=== PATIENT | male | born 1960 | race Caucasian/White ===

== ENCOUNTER 2019-06-30 12:05 | Inpatient (IN) | payer BC ==
--- NOTE | 2019-06-30 12:29 | ER Document Report ---
ED Medical Screen (RME) - General Chief Complaint: Foot Pain Stated Complaint: LEFT FOOT PAIN Time Seen by Provider: 06/30/19 12:15 Mode of Arrival: Ambulatory Information source: Patient Notes: This 58-year-old male with history of diabetes A. fib CHF and psoriasis presents to the emergency department with complaints of abscess to the bottom of his left foot. He reports 5 to 6 weeks ago he had a sore on the bottom of his foot it seemed to get better it was almost cleared up. Approximately 1 week ago he had a pedicure done and Saturday his foot started swelling sore got bigger. His le ft foot is now swollen ulcer is draining foul odor. Patient reports he started having chills shaking to the point that his stomach was hurting on Saturday. He reports he has had 3 episodes of dry heaving vomited one time. Patient reports he got his flu shot last week and was thinking maybe that is why he was shaking. He is visiting from [place]. Came to see his grandson. Reports he has not been checking his blood glucose because he forgot his glucometer in [place]. Patient ate waffles this morning. He also reports he did not take any of his medications today. Patient is pale and shaky. I have greeted and performed a rapid initial assessment of this patient. A comprehensive ED assessment and evaluation of the patient, analysis of test results and completion of the medical decision making process will be conducted by additional ED providers. Dictation of this chart was performed using voice recognition software; therefore, there may be some unintended grammatical errors. Physical Exam - Vital signs Vitals: Temp Pulse Resp BP Pulse Ox 98.5 F 72 20 114/58 L 98 06/30/19 12:10 06/30/19 12:10 06/30/19 12:10 06/30/19 12:10 06/30/19 12:10 Course - Vital Signs Vital signs: Temp Pulse Resp BP Pulse Ox 98.5 F 72 20 114/58 L 98 06/30/19 12:10 06/30/19 12:10 06/30/19 12:10 06/30/19 12:10 06/30/19 12:10
[2019-06-30 13:08] LABS: VENOUS BLOOD BASE EXCESS 1.7 mmol/L; VENOUS BLOOD HCO3 26.8 mmol/L (20-32); VENOUS BLOOD PCO2 45.3 mmHg (35-63); VENOUS BLOOD PH 7.39 (7.30-7.42)
[2019-06-30] MEDS ORDERED: NORMAL SALINE 1000 ML 1,000 ML IV ONE ×3 (13:27→14:38)
[2019-06-30] MEDS ORDERED: VANCOMYCIN HCL INJ 1000 MG VIAL IV ONE (13:27)
--- NOTE | 2019-06-30 13:29 | RADIOLOGY REPORT (SQ) ---
EXAM DESCRIPTION: FOOT LEFT COMPLETE COMPLETED DATE/TIME: 06/30/2019 1:07 pm REASON FOR STUDY: abscess diabetic swelling pain COMPARISON: None. NUMBER OF VIEWS: Three views. TECHNIQUE: AP, lateral and oblique radiographic images acquired of the left foot. LIMITATIONS: None. FINDINGS: MINERALIZATION: Osteopenia. BONES: No acute fracture or dislocation. No erosions. JOINTS: 1st MTP osteoarthrosis; there is no widening of the joint space. SOFT TISSUES: Soft tissue swelling and subcutaneous emphysema in between the 1st and 2nd toes. OTHER: The tarsometatarsal alignment is preserved. There are enthesophytes at the calcaneal insertio n of the Achilles tendon and plantar fascia. The Achilles tendon silhouette is thickened and measure s up to 14 mm in AP diameter. There are vascular calcifications. IMPRESSION: 1. Soft tissue swelling and subcutaneous emphysema centered around the 1st and 2nd toes . There is no osseous erosion or widening of the 1st MTP joint space to suggest an acute osteomyelit is. If clinical concern persists correlation with MRI is recommended. 2. Nonspecific thickening of the Achilles tendon silhouette - correlate with clinical findings to e xclude at tendinosis/tear, gouty infiltration, rheumatoid arthritis or retrocalcaneal bursitis. TECHNICAL DOCUMENTATION: JOB ID: [id number] [employer]- All Rights Reserved Reading location - IP/workstation name: [email or web address]
[2019-06-30] MEDS ORDERED: INSULIN REG, HUMAN 100 UNIT/ML 3 ML VIAL (PYX) IV ONE (13:30)
[2019-06-30] MEDS ORDERED: CEFEPIME 2 GM/D5W RTU 2 GM/50 ML RTUPB IV SCH (13:30)
[2019-06-30 13:33] LABS: HEMATOCRIT 34.2 % (37.9-51.0); HEMOGLOBIN 11.3 g/dL (13.5-17.0); MEAN CORPUSCULAR HEMOGLOBIN 28.2 pg (27.0-33.4); MEAN CORPUSCULAR HGB CONC 32.9 g/dL (32.0-36.0); MEAN CORPUSCULAR VOLUME 86 fl (80-97); PLATELET COUNT 236 10^3/uL (150-450); RED BLOOD COUNT 3.99 10^6/uL (4.35-5.55); RED CELL DISTRIBUTION WIDTH 16.5 % (11.5-14.0); WHITE BLOOD COUNT 12.8 10^3/uL (4.0-10.5)
[2019-06-30 13:51] LABS: ALBUMIN 3.8 g/dL (3.5-5.0); ALKALINE PHOSPHATASE 50 U/L (38-126); ANION GAP 15 (5-19); ASPARTATE AMINO TRANSFERASE 37 U/L (17-59); BILIRUBIN,DIRECT 0.8 mg/dL (0.0-0.4); BILIRUBIN,TOTAL 1.5 mg/dL (0.2-1.3); BLOOD UREA NITROGEN 43 mg/dL (7-20); CALCIUM 8.7 mg/dL (8.4-10.2); CARBON DIOXIDE 24 mmol/L (22-30); CHLORIDE 92 mmol/L (98-107); POTASSIUM 4.5 mmol/L (3.6-5.0); TOTAL PROTEIN 7.5 g/dL (6.3-8.2)
[2019-06-30 14:00] LABS: GLUCOSE 443 mg/dL (75-110)
[2019-06-30 14:06] LABS: ABSOLUTE LYMPHOCYTES# (MANUAL) 0.6 10^3/uL (0.5-4.7); ABSOLUTE MONOCYTES # (MANUAL) 0.8 10^3/uL (0.1-1.4); ANISOCYTOSIS 1+; BAND NEUTROPHILS % (MANUAL) 1 % (3-5); BASOPHILS % (MANUAL) 0 % (0-2); EOSINOPHILS % (MANUAL) 0 % (0-6); LYMPHOCYTES % (MANUAL) 5 % (13-45); MONOCYTES % (MANUAL) 6 % (3-13); PLATELET COMMENT ADEQUATE; SEGMENTED NEUTROPHILS % (MAN) 88 % (42-78); TOTAL CELLS COUNTED 100
[2019-06-30 14:08] LABS: OVALOCYTES SLIGHT; POLYCHROMASIA SLIGHT
--- NOTE | 2019-06-30 14:45 | ER Document Report ---
ED Extremity Problem, Lower - General Chief Complaint: Wound Infection Stated Complaint: LEFT FOOT PAIN Time Seen by Provider: 06/30/19 12:15 Mode of Arrival: Ambulatory Information source: Patient TRAVEL OUTSIDE OF THE [place] IN LAST 30 DAYS: No - HPI Notes: Patient comes in complaining of left foot pain. Patient states he is diabetic. He states he gets frequent ingrown toenails. He states that he had an ingrown toenail procedure approximately 4 days ago. Since then his foot has become swollen red and tender. He denies any other symptoms. The pain is constant. It is mild to moderate. It radiates up to the foot. It is worse with movement and better with rest. No vomiting or diarrhea. - Related Data Allergies/Adverse Reactions: olmesartan [From Benicar] Allergy (Verified 06/30/19 13:33) ondansetron [From Zofran] Allergy (Verified 06/30/19 13:33) spider venom Allergy (Verified 06/30/19 13:33) Past Medical History - General Information source: Patient - Social History Smoking Status: Never Smoker Frequency of alcohol use: None Drug Abuse: None Family History: Reviewed & Not Pertinent Patient has suicidal ideation: No Patient has homicidal ideation: No - Past Medical History Cardiac Medical History: Reports: Hx Atrial Fibrillation, Hx Congestive Heart Failure Endocrine Medical History: Reports: Hx Diabetes Mellitus Type 2 GI Medical History: Reports: Hx Gastroesophageal Reflux Disease Past Surgical History: Reports: Hx Abdominal Surgery - hernia, Hx Appendectomy, Hx Orthopedic Surgery - left knee Review of Systems - Review of Systems Constitutional: Malaise, Weakness. denies: Chills, Fever Cardiovascular: denies: Chest pain, Palpitations Respiratory: denies: Cough, Short of breath Gastrointestinal: denies: Abdominal pain, Diarrhea, Vomiting -: Yes All other systems reviewed and negative Physical Exam - Vital signs Vitals: Temp Pulse Resp BP Pulse Ox 98.5 F 72 20 114/58 L 98 06/30/19 12:10 06/30/19 12:10 06/30/19 12:10 06/30/19 12:10 06/30/19 12:10 Interpretation: Normal - General General appearance: Appears well, Alert - HEENT Head: Normocephalic, Atraumatic Eyes: Normal Pupils: PERRL - Respiratory Respiratory status: No respiratory distress Chest status: Nontender Breath sounds: Normal Chest palpation: Normal - Cardiovascular Rhythm: Regular Heart sounds: Normal auscultation Murmur: No - Abdominal Inspection: Normal Distension: No distension Bowel sounds: Normal Tenderness: Nontender Organomegaly: No organomegaly - Back Back: Normal, Nontender - Extremities General upper extremity: Normal inspection, Nontender, Normal color, Normal ROM, Normal temperature General lower extremity: Tender - Left foot has tenderness swelling and erythema about the great toe. This is both anterior and posterior. It does have some fluctuance to it. It is consistent with a diabetic foot abscess., Edema. No: Normal color, Normal weight bearing, Mahogany's sign - Neurological Neuro grossly intact: Yes Cognition: Normal Orientation: AAOx4 [place] Coma Scale Eye Opening: Spontaneous [place] Coma Scale Verbal: Oriented [place] Coma Scale Motor: Obeys Commands [place] Coma Scale Total: 15 Speech: Normal Motor strength normal: LUE, RUE, LLE, RLE Sensory: Normal - Psychological Associated symptoms: Normal affect, Normal mood - Skin Skin Temperature: Warm Skin Moisture: Dry Skin Color: Normal, Other - Except as mentioned above under extremities Course - Re-evaluation Re-evalutation: 06/30/19 14:42 Patient presents with obvious diabetic foot ulcer. X-ray shows no gas in the tissue or evidence of osteo-. I have treated him as a septic patient since he has an elevated white blood cell count and a positive lactate. He will receive 30 mL/kg of fluids as well as antibiotics. At this time his vitals are stable. He has been accepted for admission. Patient is in agreement with the plan. - Vital Signs Vital signs: Temp Pulse Resp BP Pulse Ox 100.1 F 72 12 148/68 H 98 06/30/19 14:01 06/30/19 12:10 06/30/19 14:01 06/30/19 14:01 06/30/19 14:01 - Laboratory Result Diagrams: 06/30/19 13:09 06/30/19 13:09 Laboratory results interpreted by me: 06/30/19 06/30/19 06/30/19 12:27 13:09 13:09 WBC 12.8 H RBC 3.99 L Hgb 11.3 L Hct 34.2 L RDW 16.5 H Seg Neuts % (Manual) 88 H Band Neutrophils % 1 L Lymphocytes % (Manual) 5 L Abs Neuts (Manual) 11.4 H Sodium 131.1 L Chloride 92 L BUN 43 H Creatinine 2.34 H Est GFR ( Amer) 35 L Est GFR (MDRD) Non-Af 29 L Glucose 443 H* POC Glucose 432 H* Lactic Acid Total Bilirubin 1.5 H Direct Bilirubin 0.8 H 06/30/19 13:09 WBC RBC Hgb Hct RDW Seg Neuts % (Manual) Band Neutrophils % Lymphocytes % (Manual) Abs Neuts (Manual) Sodium Chloride BUN Creatinine Est GFR ( Amer) Est GFR (MDRD) Non-Af Glucose POC Glucose Lactic Acid 3.9 H Total Bilirubin Direct Bilirubin - Diagnostic Test Radiology reviewed: Image reviewed, Reports reviewed Critical Care Note - Critical Care Note Total time excluding time spent on procedures (mins): 50 Comments: Approximately 50 minutes of critical care time were spent on this patient. This included multiple reassessments. Included reviewing his images and labs. It included discussing with consultants. It included reviewing old records. Discharge - Discharge Clinical Impression: Diabetic foot infection Sepsis Qualifiers: Sepsis type: sepsis due to unspecified organism Sepsis acute organ dysfunction status: with acute organ dysfunction Severe sepsis acute organ dysfunction type: acute renal failure Acute renal failure type: unspecified Severe sepsis shock status: without septic shock Qualified Code(s): A41.9 - Sepsis, unspecified organism; R65.20 - Severe sepsis without septic shock; N17.9 - Acute kidney failure, unspecified Condition: Fair Disposition: ADMITTED INPATIENT Admitting Provider: Farzana (Hospitalist) - lizzy villalobos doing admit Unit Admitted: Medical Floor
[2019-06-30] MEDS ORDERED: MAG HYDROX/AL HYDROX/SIMETH SUSP 30 ML UDCUP PO PRN (14:59)
[2019-06-30] MEDS ORDERED: DEXTROSE 50%-WATER 25 GM/50 ML DISP.SYRIN IV PRN ×2 (15:09)
[2019-06-30] MEDS ORDERED: GLUCAGON,HUMAN RECOMB 1 MG INJ IM PRN (15:09)
[2019-06-30] MEDS ORDERED: DEXTROSE 40% GEL 15 GM TUBE PO PRN ×2 (15:09)
[2019-06-30] MEDS ORDERED: HYDROMORPHONE HCL INJ/PF 2 MG/ML AMPULE IV PRN (15:11)
[2019-06-30] MEDS ORDERED: VANCOMYCIN HCL 0 MG in DEXTROSE 5%-WATER 250 ML IV NR (15:15)
--- NOTE | 2019-06-30 15:28 | PDOC H&P ---
History of Present Illness Admission Date/PCP: 06/30/19 15:01 Patient complains of: Left foot diabetic ulcer History of Present Illness: SUSANA RUDOLPH is a 58 year old male who presents with left foot pain. Patient has known history diabetes and gets frequent ingrown toenails. Patient this was last day he had an ingrown was removed and that is just diabetic foot ulcer popped up overnight. He denied any other symptoms but complains of pain that is mild to moderate in nature. He does have serosanguineous drainage from in between the great toe and second toe that is a foul smell. No other associated symptoms. No treatment prior to arrival all active is been aggravating factor. Past Medical History Cardiac Medical History: Reports: Atrial Fibrillation, Congestive Heart Failure Endocrine Medical History: Reports: Diabetes Mellitus Type 2 GI Medical History: Reports: Gastroesophageal Reflux Disease Past Surgical History Past Surgical History: Reports: Appendectomy, Orthopedic Surgery - left knee Social History Information Source: Patient Lives with: Family Smoking Status: Never Smoker Frequency of Alcohol Use: None Hx Recreational Drug Use: No Drugs: None Hx Prescription Drug Abuse: No - Advance Directive Resuscitation Status: Full Code Family History Family History: CAD Parental Family History Reviewed: Yes Children Family History Reviewed: Yes Sibling(s) Family History Reviewed.: Yes Medication/Allergy Allergies/Adverse Reactions: olmesartan [From Benicar] Allergy (Verified 06/30/19 13:33) ondansetron [From Zofran] Allergy (Verified 06/30/19 13:33) spider venom Allergy (Verified 06/30/19 13:33) Review of Systems Constitutional: ABSENT: chills, fever(s), headache(s), weight gain, weight loss Eyes: ABSENT: visual disturbances Ears: ABSENT: hearing changes Cardiovascular: ABSENT: chest pain, dyspnea on exertion, edema, orthropnea, palpitations Respiratory: ABSENT: cough, hemoptysis Gastrointestinal: ABSENT: abdominal pain, constipation, diarrhea, hematemesis, hematochezia, nausea, vomiting Genitourinary: ABSENT: dysuria, hematuria Musculoskeletal: PRESENT: other - Left foot pain, swelling. ABSENT: joint swelling Integumentary: ABSENT: rash, wounds Neurological: ABSENT: abnormal gait, abnormal speech, confusion, dizziness, fo jayy weakness, syncope Psychiatric: ABSENT: anxiety, depression, homidical ideation, suicidal ideation Endocrine: ABSENT: cold intolerance, heat intolerance, polydipsia, polyuria Hematologic/Lymphatic: ABSENT: easy bleeding, easy bruising Physical Exam Vital Signs: Temp Pulse Resp BP Pulse Ox 100.1 F 72 12 148/68 H 98 06/30/19 14:01 06/30/19 12:10 06/30/19 14:01 06/30/19 14:01 06/30/19 14:01 Intake & Output 06/29/19 06/30/19 07/01/19 06:59 06:59 06:59 Intake Total 1050 Balance 1050 Weight 113.3 kg General appearance: PRESENT: no acute distress, well-developed, well-nourished Head exam: PRESENT: atraumatic, normocephalic Eye exam: PRESENT: conjunctiva pink, EOMI, PERRLA. ABSENT: scleral icterus Ear exam: PRESENT: normal external ear exam Mouth exam: PRESENT: moist, tongue midline Neck exam: ABSENT: carotid bruit, JVD, lymphadenopathy, thyromegaly Respiratory exam: PRESENT: clear to auscultation chastity. ABSENT: rales, rhonchi, wheezes Cardiovascular exam: PRESENT: RRR. ABSENT: diastolic murmur, rubs, systolic murmur Pulses: PRESENT: normal dorsalis pedis pul Vascular exam: PRESENT: normal capillary refill GI/Abdominal exam: PRESENT: normal bowel sounds, soft. ABSENT: distended, guarding, mass, organolmegaly, rebound, tenderness Rectal exam: PRESENT: deferred Extremities exam: PRESENT: full ROM. ABSENT: calf tenderness, clubbing, pedal edema Musculoskeletal exam: PRESENT: other - Left foot from base of great toe going around to the second toe and webbing with serosanguineous drainage of foul smell plus necrotic area of tissue. Just below this area is another wound that she appears to have a scabbed area of that. Neurological exam: PRESENT: alert, awake, oriented to person, oriented to place, oriented to time, oriented to situation, CN II-XII grossly intact. ABSENT: motor sensory deficit Psychiatric exam: PRESENT: appropriate affect, normal mood. ABSENT: homicidal ideation, suicidal ideation Skin exam: PRESENT: dry, intact, warm. ABSENT: cyanosis, rash Results Laboratory Results: 06/30/19 13:09 06/30/19 13:09 06/30/19 06/30/1919 12:52 13:09 13:09 WBC 12.8 H RBC 3.99 L Hgb 11.3 L Hct 34.2 L MCV 86 MCH 28.2 MCHC 32.9 RDW 16.5 H Plt Count 236 Seg Neutrophils % Not Reportable VBG pH 7.39 VBG pCO2 45.3 VBG HCO3 26.8 VBG Base Excess 1.7 Sodium 131.1 L Potassium 4.5 Chloride 92 L Carbon Dioxide 24 Anion Gap 15 BUN 43 H Creatinine 2.34 H Est GFR ( Amer) 35 L Glucose 443 H* Lactic Acid Calcium 8.7 Total Bilirubin 1.5 H AST 37 Alkaline Phosphatase 50 Total Protein 7.5 Albumin 3.8 06/30/19 13:09 WBC RBC Hgb Hct MCV MCH MCHC RDW Plt Count Seg Neutrophils % VBG pH VBG pCO2 VBG HCO3 VBG Base Excess Sodium Potassium Chloride Carbon Dioxide Anion Gap BUN Creatinine Est GFR ( Amer) Glucose Lactic Acid 3.9 H Calcium Total Bilirubin AST Alkaline Phosphatase Total Protein Albumin Impressions: Foot X-Ray 06/30/19 12:24 IMPRESSION: 1. Soft tissue swelling and subcutaneous emphysema centered around the 1st and 2nd toes. There is no osseous erosion or widening of the 1st MTP joint space to suggest an acute osteomyelitis. If clinical concern persists correlation with MRI is recommended. 2. Nonspecific thickening of the Achilles tendon silhouette - correlate with clinical findings to exclude at tendinosis/tear, gouty infiltration, rheumatoid arthritis or retrocalcaneal bursitis. Assessment and Plan - Diagnosis (1) Diabetic ulcer of left foot Qualifiers: Diabetic foot ulcer location: toe Diabetes mellitus type: type 2 Is this a current diagnosis for this admission?: Yes Plan: 06/30/2019-admit to medical surgical. Vancomycin and Zosyn per pharmacy dosing. Blood cultures and wound culture will be obtained. I have consulted Dr. Alvares in consultation for possible surgical I/D. Patient will be made n.p.o. after midnight for possible intervention in a.m. Will give patient Dilaudid 1 mg IV every 3 hours PRN for pain or Percocet 5/325 mg 1 p.o. every 4 hours as needed pain. We will also perform Dakin's solution soaks twice a day. (2) Type 2 diabetes mellitus Is this a current diagnosis for this admission?: Yes Plan: 06/30/2019-patient's blood sugar to 400 range at this time. We want to decrease that for possible surgical intervention in a.m. I will do a sliding scale insulin every 2 hours at this time to have patient's blood sugar down to an acceptable range at which time we will switch over to every 6 hours. Patient will be n.p.o. after midnight for surgical intervention. After which we will place him on a diet and continue home medications. I will also give patient 10 units of Lantus at bedtime. (3) Acute renal failure Is this a current diagnosis for this admission?: Yes Plan: 06/30/2019-patient's creatinine 2.34 at this time. No previous labs to compare to some of some this is an acute renal failure. Patient has been given 3 L of normal saline in the ER will continue normal saline at 125 mL/h. I will repeat BMP in the a.m. (4) Lactic acidosis Is this a current diagnosis for this admission?: Yes Plan: 06/30/2019-patient has a elevated lactic acid at this time however I do not suspect that this is sepsis in nature. Patient is getting 3 L normal saline plus I will run saline at 125 mL an hour I will repeat a lactic acid at 7 PM. - Time Time Spent with patient: 35 or more minutes - Inpatient Certification Based on my medical assessment, after consideration of the patient's comorbidities, presenting symptoms, or acuity I expect that the services needed warrant INPATIENT care.: Yes I certify that my determination is in accordance with my understanding of Medicare's requirements for reasonable and necessary INPATIENT services [42 CFR 412.3e].: Yes Medical Necessity: Other - IV about, IV fluids
[2019-06-30] MEDS: INSULIN REG, HUMAN 100 UNIT/ML 3 ML VIAL (PYX) SUBCUT SCH ×2 (16:33→18:47)
[2019-06-30] MEDS: SODIUM HYPOCHLORITE 0.25% SOLN 473 ML BOTTLE TP SCH (18:38)
[2019-06-30] MEDS: PIPERACILLIN SODIUM/TAZOBACTAM 3.375 GM in NORMAL SALINE 100 ML IV SCH (18:40)
[2019-06-30 19:51] LABS: ANION GAP 10 (5-19); BLOOD UREA NITROGEN 37 mg/dL (7-20); CALCIUM 7.9 mg/dL (8.4-10.2); CARBON DIOXIDE 25 mmol/L (22-30); CHLORIDE 98 mmol/L (98-107); GLUCOSE 182 mg/dL (75-110)
[2019-06-30] MEDS: INSULIN GLARGINE,HUM.REC.ANLOG 1,000 UNIT/10 ML VIAL SUBCUT SCH (21:43)
[2019-06-30] MEDS: CARVEDILOL 12.5 MG TABLET PO SCH (21:45)
[2019-06-30] MEDS: OXYCODONE-ACETAMINOPHEN 5-325 MG TABLET PO PRN (21:56)
[2019-06-30] MEDS: NORMAL SALINE 1000 ML 1,000 ML IV PRN (21:57)
[2019-07-01] MEDS: PIPERACILLIN SODIUM/TAZOBACTAM 3.375 GM in NORMAL SALINE 100 ML IV SCH ×4 (00:05→17:31)
[2019-07-01] MEDS: INSULIN REG, HUMAN 100 UNIT/ML 3 ML VIAL (PYX) SUBCUT SCH ×4 (00:11→17:43)
[2019-07-01] MEDS: NORMAL SALINE 1000 ML 1,000 ML IV PRN ×2 (06:16→20:24)
[2019-07-01] MEDS ORDERED: DEXTROSE 5%-1/2 NORMAL SALINE 1,000 ML IV PRN (06:40)
--- NOTE | 2019-07-01 07:24 | PDOC CONSULTATION ---
Consultation Consult Date: 07/01/19 Provider Consulted: KENNETH CHOI Consult reason:: Left foot infection/abscess History of Present Illness Admission Date/PCP: 06/30/19 15:01 History of Present Illness: SUSANA RUDOLPH is a 58 year old male 58-year-old white male with adult onset diabetes, hyperglycemia, renal insufficiency, and rapidly progressive left great toe MTP ulcer/abscess. Past Medical History Cardiac Medical History: Reports: Atrial Fibrillation, Congestive Heart Failure Endocrine Medical History: Reports: Diabetes Mellitus Type 2 GI Medical History: Reports: Gastroesophageal Reflux Disease Psychiatric Medical History: Denies: Depression Past Surgical History Past Surgical History: Reports: Appendectomy, Orthopedic Surgery - left knee Social History Information Source: Patient, ON LICENSE OF [facility] Records Lives with: Family Smoking Status: Never Smoker Frequency of Alcohol Use: None Hx Recreational Drug Use: No Drugs: None Hx Prescription Drug Abuse: No - Advance Directive Resuscitation Status: Full Code Family History Family History: Reviewed & Not Pertinent, CAD Parental Family History Reviewed: No Children Family History Reviewed: No Sibling(s) Family History Reviewed.: No Medication/Allergy Home Medications: Carvedilol [Coreg 25 mg Tablet] 25 mg PO Q12 06/30/19 Fenofibrate Nanocrystallized [Tricor 145 mg Tablet] 145 mg PO DAILY 06/30/19 Furosemide [Lasix 40 mg Tablet] 40 mg PO DAILY 06/30/19 Glimepiride [Amaryl 4 mg Tablet] 4 mg PO BID 06/30/19 Insulin Glargine,Hum.rec.anlog [Basaglar Kwikpen U-100] 60 units SQ DAILY 06/30/19 Isosorbide Mononitrate [Imdur 30 mg Tablet.er] 30 mg PO DAILY 06/30/19 Pantoprazole Sodium [Protonix [address] Tablet] 40 mg PO DAILY 06/30/19 Rivaroxaban [Xarelto] 20 mg PO DAILY 06/30/19 Sitagliptin Phosphate [Januvia] 100 mg PO DAILY 06/30/19 Allergies/Adverse Reactions: olmesartan [From Benicar] Allergy (Verified 06/30/19 13:33) ondansetron [From Zofran] Allergy (Verified 06/30/19 13:33) spider venom Allergy (Verified 06/30/19 13:33) Review of Systems All systems: as per [facility] Physical Exam Vital Signs: Temp Pulse Resp BP Pulse Ox 37.0 C 63 17 95/43 L 94 07/01/19 00:06 07/01/19 00:06 07/01/19 00:06 07/01/19 00:06 07/01/19 00:06 Intake & Output 06/30/19 07/01/19 07/02/19 06:59 06:59 06:59 Intake Total 4550 Output Total 750 Balance 3800 Weight 114.6 kg Physical Exam: Overweight middle-aged white male lying in bed in minimal distress. Patient is alert, oriented, and appropriate. General appearance: PRESENT: no acute distress Head exam: PRESENT: normocephalic Respiratory exam: PRESENT: unlabored Cardiovascular exam: PRESENT: RRR Vascular exam: PRESENT: normal capillary refill GI/Abdominal exam: PRESENT: soft Rectal exam: PRESENT: deferred Extremities exam: PRESENT: other - Left foot showing erythema, discoloration surrounding the plantar and lateral aspect of the great toe MTP joint. There is serosanguineous drainage from the first webspace. Neurological exam: PRESENT: alert, awake, oriented to person, oriented to place, oriented to time, oriented to situation Psychiatric exam: PRESENT: appropriate affect, normal mood. ABSENT: homicidal ideation, suicidal ideation Results Laboratory Results: 06/30/19 19:23 06/30/19 06/30/19 06/30/19 12:52 13:09 13:09 WBC 12.8 H RBC 3.99 L Hgb 11.3 L Hct 34.2 L MCV 86 MCH 28.2 MCHC 32.9 RDW 16.5 H Plt Count 236 Seg Neutrophils % Not Reportable VBG pH 7.39 VBG pCO2 45.3 VBG HCO3 26.8 VBG Base Excess 1.7 Sodium 131.1 L Potassium 4.5 Chloride 92 L Carbon Dioxide 24 Anion Gap 15 BUN 43 H Creatinine 2.34 H Est GFR ( Amer) 35 L Glucose 443 H* Lactic Acid Calcium 8.7 Total Bilirubin 1.5 H AST 37 Alkaline Phosphatase 50 Total Protein 7.5 Albumin 3.8 06/30/19 06/30/19 06/30/19 13:09 19:23 19:23 WBC RBC Hgb Hct MCV MCH MCHC RDW Plt Count Seg Neutrophils % VBG pH VBG pCO2 VBG HCO3 VBG Base Excess Sodium 132.6 L Potassium 4.0 Chloride 98 Carbon Dioxide 25 Anion Gap 10 BUN 37 H Creatinine 1.88 H Est GFR ( Amer) 45 L Glucose 182 H Lactic Acid 3.9 H 1.8 Calcium 7.9 L Total Bilirubin AST Alkaline Phosphatase Total Protein Albumin Impressions: Foot X-Ray 06/30/19 12:24 IMPRESSION: 1. Soft tissue swelling and subcutaneous emphysema centered around the 1st and 2nd toes. There is no osseous erosion or widening of the 1st MTP joint space to suggest an acute osteomyelitis. If clinical concern persists correlation with MRI is recommended. 2. Nonspecific thickening of the Achilles tendon silhouette - correlate with clinical findings to exclude at tendinosis/tear, gouty infiltration, rheumatoid arthritis or retrocalcaneal bursitis. Status: Imported from PACS Assessment & Plan - Diagnosis (1) Diabetic foot infection Is this a current diagnosis for this admission?: Yes Plan: Plan for surgical debridement today under local MAC anesthesia. Patient wishes to retain digits as opposed to consider amputation. - Time Time Spent: 50 to 70 Minutes Anticipated discharge: Home with Homehealth Within: Other
[2019-07-01 07:41] LABS: ABSOLUTE EOSINOPHILS # (AUTO) 0.2 10^3/uL (0.0-0.6); ABSOLUTE LYMPHOCYTES (AUTO) 0.8 10^3/uL (0.5-4.7); ABSOLUTE MONOCYTES (AUTO) 1.1 10^3/uL (0.1-1.4); ABSOLUTE NEUT (AUTO) 7.2 10^3/uL (1.7-8.2); BASOPHILS % (AUTO) 0.5 % (0-2); EOSINOPHILS % (AUTO) 2.1 % (0-6); HEMATOCRIT 30.8 % (37.9-51.0); HEMOGLOBIN 10.3 g/dL (13.5-17.0); LYMPHOCYTES % (AUTO) 8.9 % (13-45); MEAN CORPUSCULAR HEMOGLOBIN 28.3 pg (27.0-33.4); MEAN CORPUSCULAR HGB CONC 33.4 g/dL (32.0-36.0); MEAN CORPUSCULAR VOLUME 85 fl (80-97); MONOCYTES % (AUTO) 11.4 % (3-13); PLATELET COUNT 211 10^3/uL (150-450); RED BLOOD COUNT 3.64 10^6/uL (4.35-5.55); SEGMENTED NEUTROPHILS % (AUTO) 77.1 % (42-78); TOTAL CELLS COUNTED % (AUTO) 100 %; WHITE BLOOD COUNT 9.4 10^3/uL (4.0-10.5)
[2019-07-01 08:01] LABS: PHOSPHORUS 2.8 mg/dL (2.5-4.5)
--- NOTE | 2019-07-01 09:33 | PDOC PROGRESS REPORT ---
Subjective Progress Note for:: 07/01/19 Subjective:: 58 year old male who presents with left foot pain. Patient has known history diabetes and gets frequent ingrown toenails. Patient this was last day he had an ingrown was removed and that is just diabetic foot ulcer popped up overnight. He denied any other symptoms but complains of pain that is mild to moderate in nature. He does have serosanguineous drainage from in between the great toe and second toe that is a foul smell. No other associated symptoms. No treatment prior to arrival all active is been aggravating factor. 07/01/[id number]-[id number]-old male with history of type 2 diabetes mellitus, history of ingrown pain is last week ingrown toenail was removed and foot ulcer popped up overnight. Associated with the serosanguineous drainage between the great toe and second toe. With foul-smelling. Ortho consult was done this morning patient wants to keep the toes so he is going for surgical debridement. Left foot x-ray did not suggestive of an osteomyelitis but I am planning to go ahead and do the MRI of the left lower extremity without contrast because creatinine is 1.88. No acute events since admission. Afebrile. Reason For Visit: DIABETIC FOOT ULCER Physical Exam Vital Signs: Temp Pulse Resp BP Pulse Ox 98.6 F 63 17 95/43 L 94 07/01/19 00:06 07/01/19 00:06 07/01/19 00:06 07/01/19 00:06 07/01/19 00:06 Intake & Output 06/30/19 07/01/19 07/02/19 06:59 06:59 06:59 Intake Total 4550 Output Total 750 Balance 3800 Weight 114.6 kg General appearance: PRESENT: no acute distress, cooperative, obese Head exam: PRESENT: atraumatic Eye exam: PRESENT: PERRLA Mouth exam: PRESENT: moist, tongue midline Teeth exam: PRESENT: poor dentation Neck exam: ABSENT: carotid bruit, JVD, lymphadenopathy, thyromegaly Respiratory exam: PRESENT: decreased breath sounds Cardiovascular exam: PRESENT: RRR. ABSENT: diastolic murmur, rubs, systolic murmur GI/Abdominal exam: PRESENT: normal bowel sounds, soft. ABSENT: distended, guarding, mass, organolmegaly, rebound, tenderness Rectal exam: PRESENT: deferred Extremities exam: PRESENT: other - Left great toe and surrounding area is extremely swollen with blackish discoloration. Extremely tender to touch. peripheral Pulses are poor. Neurological exam: PRESENT: alert Psychiatric exam: PRESENT: appropriate affect, normal mood. ABSENT: homicidal ideation, suicidal ideation Results Laboratory Results: 07/01/19 07:11 06/30/19 19:23 06/30/19 06/30/19 06/30/19 12:52 13:09 13:09 WBC 12.8 H RBC 3.99 L Hgb 11.3 L Hct 34.2 L MCV 86 MCH 28.2 MCHC 32.9 RDW 16.5 H Plt Count 236 Seg Neutrophils % Not Reportable VBG pH 7.39 VBG pCO2 45.3 VBG HCO3 26.8 VBG Base Excess 1.7 Sodium 131.1 L Potassium 4.5 Chloride 92 L Carbon Dioxide 24 Anion Gap 15 BUN 43 H Creatinine 2.34 H Est GFR ( Amer) 35 L Glucose 443 H* Lactic Acid Calcium 8.7 Phosphorus Magnesium Total Bilirubin 1.5 H AST 37 Alkaline Phosphatase 50 Total Protein 7.5 Albumin 3.8 06/30/19 06/30/19 06/30/19 13:09 19:23 19:23 WBC RBC Hgb Hct MCV MCH MCHC RDW Plt Count Seg Neutrophils % VBG pH VBG pCO2 VBG HCO3 VBG Base Excess Sodium 132.6 L Potassium 4.0 Chloride 98 Carbon Dioxide 25 Anion Gap 10 BUN 37 H Creatinine 1.88 H Est GFR ( Amer) 45 L Glucose 182 H Lactic Acid 3.9 H 1.8 Calcium 7.9 L Phosphorus Magnesium Total Bilirubin AST Alkaline Phosphatase Total Protein Albumin 07/01/19 07/01/19 07:11 07:11 WBC 9.4 RBC 3.64 L Hgb 10.3 L Hct 30.8 L MCV 85 MCH 28.3 MCHC 33.4 RDW 16.0 H Plt Count 211 Seg Neutrophils % 77.1 VBG pH VBG pCO2 VBG HCO3 VBG Base Excess Sodium Potassium Chloride Carbon Dioxide Anion Gap BUN Creatinine Est GFR ( Amer) Glucose Lactic Acid Calcium Phosphorus 2.8 Magnesium 1.8 Total Bilirubin AST Alkaline Phosphatase Total Protein Albumin Impressions: Foot X-Ray 06/30/19 12:24 IMPRESSION: 1. Soft tissue swelling and subcutaneous emphysema centered around the 1st and 2nd toes. There is no osseous erosion or widening of the 1st MTP joint space to suggest an acute osteomyelitis. If clinical concern persists correlation with MRI is recommended. 2. Nonspecific thickening of the Achilles tendon silhouette - correlate with clinical findings to exclude at tendinosis/tear, gouty infiltration, rheumatoid arthritis or retrocalcaneal bursitis. Assessment and Plan - Diagnosis (1) Diabetic ulcer of left foot Qualifiers: Diabetic foot ulcer location: toe Diabetes mellitus type: type 2 Is this a current diagnosis for this admission?: Yes (2) Acute renal failure Is this a current diagnosis for this admission?: Yes (3) Type 2 diabetes mellitus Is this a current diagnosis for this admission?: Yes (4) Lactic acidosis Is this a current diagnosis for this admission?: Yes (5) Hyponatremia Is this a current diagnosis for this admission?: Yes - Plan Summary Summary: (1) Diabetic ulcer of left foot Qualifiers: Diabetic foot ulcer location: toe Diabetes mellitus type: type 2 Is this a current diagnosis for this admission?: Yes Plan: 06/30/2019-admit to medical surgical. Vancomycin and Zosyn per pharmacy dosing. Blood cultures and wound culture will be obtained. I have consulted Dr. Alvares in consultation for possible surgical I/D. Patient will be made n.p.o. after midnight for possible intervention in a.m. Will give patient Dilaudid 1 mg IV every 3 hours PRN for pain or Percocet 5/325 mg 1 p.o. every 4 hours as needed pain. We will also perform Dakin's solution soaks twice a day. 07/01/[id number]-old male with history of type 2 diabetes mellitus admitted with left foot diabetic ulcer with possible abscess. Going for surgical debridement today. Presently on vancomycin and Zosyn. Cultures are pending so far. Plan to do the MRI of the left foot today to see if there is any osteomyelitis. Patient receiving Percocet 5 through 25 mg every 4 PRN for pain. He is also receiving IV Dilaudid every 3 hours as needed. (2) Type 2 diabetes mellitus Is this a current diagnosis for this admission?: Yes Plan: 06/30/2019-patient's blood sugar to 400 range at this time. We want to decrease that for possible surgical intervention in a.m. I will do a sliding scale insulin every 2 hours at this time to have patient's blood sugar down to an acceptable range at which time we will switch over to every 6 hours. Patient will be n.p.o. after midnight for surgical intervention. After which we will place him on a diet and continue home medications. I will also give patient 10 units of Lantus at bedtime. 07/01/2019-patient has history of type 2 diabetes mellitus latest blood sugar is 182. Plan to check his hemoglobin A1c and continue to do insulin sliding scale every 6 hours. He is also on Lantus 10 units at bedtime. Diet exercise weight loss lifestyle modifications are discussed with the patient dietary consult will be requested. (3) Acute renal failure Is this a current diagnosis for this admission?: Yes Plan: 06/30/2019-patient's creatinine 2.34 at this time. No previous labs to compare to some of some this is an acute renal failure. Patient has been given 3 L of normal saline in the ER will continue normal saline at 125 mL/h. I will repeat BMP in the a.m. 07/01/2019-patient's serum creatinine today is 1.88 admission creatinine is 2.34. Patient is receiving normal saline at 125 cc/h acute kidney injury is resol ving. Kidney injury most likely secondary to prerenal causes and uncontrolled diabetes mellitus. (4) Lactic acidosis Is this a current diagnosis for this admission?: Yes Plan: 06/30/2019-patient has a elevated lactic acid at this time however I do not suspect that this is sepsis in nature. Patient is getting [address] us I will run saline at 125 mL an hour I will repeat a lactic acid at 7 PM. 07/01/2019-patient admitted with elevated lactic acid levels latest lactic acid level is 1.8. Lactic acidosis is resolving. Hyponatremia, patient came in with serum sodium of 131.1. Today's serum sodium is 132.6. He is receiving normal saline at 125 cc/h. Hyponatremia most likely secondary to uncontrolled diabetes mellitus. Plan is closely monitor his serum sodium levels. Obesity patient's BMI is more than 32 diet exercise weight loss lifestyle modifications are discussed with the patient.
[2019-07-01] MEDS: ISOSORBIDE MONONITRATE 30 MG TAB.ER.24H PO SCH (09:54)
[2019-07-01] MEDS: FENOFIBRATE NANOCRYSTALLIZED 145 MG TABLET PO SCH (09:54)
[2019-07-01] MEDS: CARVEDILOL 12.5 MG TABLET PO SCH ×2 (09:54→21:14)
[2019-07-01] MEDS: PANTOPRAZOLE SODIUM 40 MG TABLET.DR PO SCH (09:54)
[2019-07-01] MEDS: SODIUM HYPOCHLORITE 0.25% SOLN 473 ML BOTTLE TP SCH ×2 (09:56→17:47)
[2019-07-01] MEDS ORDERED: GLUCAGON,HUMAN RECOMB 1 MG INJ SUBCUT PRN (10:58)
[2019-07-01] MEDS ORDERED: DEXTROSE 50%-WATER 25 GM/50 ML DISP.SYRIN IV PRN ×2 (10:58)
[2019-07-01] MEDS ORDERED: DEXTROSE 40% GEL 15 GM TUBE PO PRN ×2 (10:58)
[2019-07-01] MEDS ORDERED: VANCOMYCIN HCL 1,000 MG in DEXTROSE 5%-WATER 250 ML IV SCH (12:00)
--- NOTE | 2019-07-01 13:12 | RADIOLOGY REPORT (SQ) ---
EXAM DESCRIPTION: MRI LT LOWER EXTREMITY WITHOUT COMPLETED DATE/TIME: 07/01/2019 11:45 am REASON FOR STUDY: lt foot osteomyelitis COMPARISON: 06/30/2019 radiographs. TECHNIQUE: Multiplanar imaging of the left forefoot to include fat and fluid sensitive sequences. LIMITATIONS: None. FINDINGS: BONE MARROW: No marrow signal alteration. Specifically no marrow replacement or marrow ed malissa. No evidence for osteomyelitis. No cortical break through. SOFT TISSUES: Generalized soft tissue edema about the foot including in the dorsal subcutaneous tissu es. Thickening and edema along the great toe MP joint with skin surface irregularity suggesting ulce ration. There is associated intermediate T1 signal throughout the subcutaneous fat regionally. No d rainable collections are suggested. OTHER: No other significant finding. IMPRESSION: 1. Cellulitis and evidence of superficial ulceration. No gross abscess. No evidence of osteomyeliti s. TECHNICAL DOCUMENTATION: JOB ID: [id number] [employer]- All Rights Reserved Reading location - IP/workstation name: [email or web address]
[2019-07-01] MEDS ORDERED: VANCOMYCIN HCL 1,500 MG in DEXTROSE 5%-WATER 250 ML IV SCH (14:00)
[2019-07-01] MEDS: OXYCODONE-ACETAMINOPHEN 5-325 MG TABLET PO PRN (14:37)
[2019-07-01] MEDS: VANCOMYCIN HCL 1,000 MG in DEXTROSE 5%-WATER 250 ML IV SCH ×2 (14:43→21:15)
[2019-07-01] MEDS: FUROSEMIDE 40 MG TABLET PO SCH (17:51)
[2019-07-01] MEDS: INSULIN GLARGINE,HUM.REC.ANLOG 1,000 UNIT/10 ML VIAL SUBCUT SCH (21:14)
[2019-07-01] MEDS: ZOLPIDEM TARTRATE 5 MG TABLET PO SCH (21:15)
[2019-07-02] MEDS: PIPERACILLIN SODIUM/TAZOBACTAM 3.375 GM in NORMAL SALINE 100 ML IV SCH ×4 (00:17→18:10)
[2019-07-02] MEDS: INSULIN REG, HUMAN 100 UNIT/ML 3 ML VIAL (PYX) SUBCUT SCH ×4 (00:26→22:24)
[2019-07-02 04:55] LABS: ABSOLUTE EOSINOPHILS # (AUTO) 0.1 10^3/uL (0.0-0.6); ABSOLUTE LYMPHOCYTES (AUTO) 0.7 10^3/uL (0.5-4.7); ABSOLUTE MONOCYTES (AUTO) 0.7 10^3/uL (0.1-1.4); ABSOLUTE NEUT (AUTO) 4.8 10^3/uL (1.7-8.2); BASOPHILS % (AUTO) 0.7 % (0-2); EOSINOPHILS % (AUTO) 2.1 % (0-6); HEMATOCRIT 27.3 % (37.9-51.0); HEMOGLOBIN 9.1 g/dL (13.5-17.0); LYMPHOCYTES % (AUTO) 11.1 % (13-45); MEAN CORPUSCULAR HEMOGLOBIN 27.9 pg (27.0-33.4); MEAN CORPUSCULAR HGB CONC 33.3 g/dL (32.0-36.0); MEAN CORPUSCULAR VOLUME 84 fl (80-97); MONOCYTES % (AUTO) 11.3 % (3-13); PLATELET COUNT 178 10^3/uL (150-450); RED BLOOD COUNT 3.26 10^6/uL (4.35-5.55); RED CELL DISTRIBUTION WIDTH 15.8 % (11.5-14.0); SEGMENTED NEUTROPHILS % (AUTO) 74.8 % (42-78); TOTAL CELLS COUNTED % (AUTO) 100 %; WHITE BLOOD COUNT 6.3 10^3/uL (4.0-10.5)
[2019-07-02 05:15] LABS: ALBUMIN 2.9 g/dL (3.5-5.0); ALKALINE PHOSPHATASE 38 U/L (38-126); ANION GAP 9 (5-19); ASPARTATE AMINO TRANSFERASE 43 U/L (17-59); BILIRUBIN,DIRECT 0.7 mg/dL (0.0-0.4); BILIRUBIN,TOTAL 1.2 mg/dL (0.2-1.3); BLOOD UREA NITROGEN 30 mg/dL (7-20); CALCIUM 7.9 mg/dL (8.4-10.2); CARBON DIOXIDE 23 mmol/L (22-30); CHLORIDE 102 mmol/L (98-107); GLUCOSE 249 mg/dL (75-110); PHOSPHORUS 2.5 mg/dL (2.5-4.5); POTASSIUM 4.2 mmol/L (3.6-5.0); TOTAL PROTEIN 6.2 g/dL (6.3-8.2)
[2019-07-02] MEDS ORDERED: FENTANYL CITRATE INJ/PF 100 MCG/2 ML AMPUL ONE (06:42)
[2019-07-02] MEDS ORDERED: MIDAZOLAM 2 MG/2 ML INJ ONE (06:42)
[2019-07-02] MEDS ORDERED: PROPOFOL INJ 200 MG/20 ML VIAL IV ONE (06:42)
[2019-07-02] MEDS ORDERED: LIDOCAINE 1% INJ-PF (10 MG/ML) 30 ML SDV ONE (07:12)
[2019-07-02] MEDS ORDERED: BUPIVACAINE HCL 0.5%-EPI 1:200000 INJ/PF 30 ML VIAL ONE (07:13)
[2019-07-02] MEDS ORDERED: KETAMINE HCL INJ 500 MG/10 ML VIAL ONE (07:19)
[2019-07-02] MEDS ORDERED: FENTANYL CITRATE INJ/PF 100 MCG/2 ML AMPUL IV PRN ×3 (07:37)
[2019-07-02] MEDS ORDERED: PROMETHAZINE HCL INJ 25 MG/1 ML VIAL IV PRN ×2 (07:37)
[2019-07-02] MEDS ORDERED: MEPERIDINE HCL/PF INJ 25 MG/1 ML DISP.SYRIN IV PRN (07:37)
[2019-07-02] MEDS ORDERED: DIPHENHYDRAMINE HCL 50 MG/ML VIAL IV PRN (07:37)
--- NOTE | 2019-07-02 07:51 | Operative Report ---
Operative Report DATE OF SURGERY: 07/02/19 PREOPERATIVE DIAGNOSIS: Left diabetic foot ulcer OPERATION: Irrigation debridement left diabetic foot ulcer and necrotic material including skin, subcutaneous tissue and deep fascia but not bone SURGEON: KENNETH CHOI ANESTHESIA: LMAC TISSUE REMOVED OR ALTERED: Tissue to microbiology. Tissue to pathology ESTIMATED BLOOD LOSS: 15 PROCEDURE: With the patient supine Afrin table the left lower extremities prepped and draped in sterile fashion. An ankle block is placed with a combination of Marcaine and Xylocaine. Subsequently the skin which begins along the medial aspect of the first MTP joint extends plantar over to the base of the second and then up into the first webspace is debrided back to bleeding tissue. Is done with a combination of a knife and a rondure. The wound was then packed with Betadine soaked gauze and wrapped in a compressive dressing. The patient's return to the PACU in satisfactory condition.
[2019-07-02] MEDS ORDERED: RINGERS SOLUTION,LACTATED 1,000 ML IV PRN (08:16)
[2019-07-02] MEDS: SODIUM HYPOCHLORITE 0.25% SOLN 473 ML BOTTLE TP SCH ×2 (10:17→18:08)
[2019-07-02] MEDS: PANTOPRAZOLE SODIUM 40 MG TABLET.DR PO SCH (10:25)
[2019-07-02] MEDS: CARVEDILOL 12.5 MG TABLET PO SCH ×2 (10:25→22:25)
[2019-07-02] MEDS: FUROSEMIDE 40 MG TABLET PO SCH (10:26)
[2019-07-02] MEDS: ISOSORBIDE MONONITRATE 30 MG TAB.ER.24H PO SCH (10:26)
[2019-07-02] MEDS: FENOFIBRATE NANOCRYSTALLIZED 145 MG TABLET PO SCH (10:27)
[2019-07-02] MEDS: VANCOMYCIN HCL 1,000 MG in DEXTROSE 5%-WATER 250 ML IV SCH ×2 (10:27→22:25)
--- NOTE | 2019-07-02 16:13 | PDOC PROGRESS REPORT ---
Subjective Progress Note for:: 07/02/19 Subjective:: 58 year old male who presents with left foot pain. Patient has known history diabetes and gets frequent ingrown toenails. Patient this was last day he had an ingrown was removed and that is just diabetic foot ulcer popped up overnight. He denied any other symptoms but complains of pain that is mild to moderate in nature. He does have serosanguineous drainage from in between the great toe and second toe that is a foul smell. No other associated symptoms. No treatment prior to arrival all active is been aggravating factor. 07/01/[id number]-erfr-old male with history of type 2 diabetes mellitus, history of ingrown pain is last week ingrown toenail was removed and foot ulcer popped up overnight. Associated with the serosanguineous drainage between the great toe and second toe. With foul-smelling. Ortho consult was done this morning patient wants to keep the toes so he is going for surgical debridement. Left foot x-ray did not suggestive of an osteomyelitis but I am planning to go ahead and do the MRI of the left lower extremity without contrast because creatinine is 1.88. No acute events since admission. Afebrile. 07/02/[id number]-[id number]-old male with history of type 2 diabetes mellitus admitted with left foot cellulitis with gangrene. Went for the surgical procedure with the debridement of the wound removal of the necrotic skin deep fascia. Not including the bone. Patient is sleepy and groggy. No complaints. Reason For Visit: DIABETIC FOOT ULCER Physical Exam Vital Signs: Temp Pulse Resp BP Pulse Ox 98.1 F 66 18 131/84 H 100 07/02/19 09:41 07/02/19 09:41 07/02/19 09:41 07/02/19 09:41 07/02/19 09:41 Intake & Output 07/01/19 07/02/19 07/03/19 06:59 06:59 06:59 Intake Total 4650 2546 250 Output Total 750 800 5 Balance 3900 1746 245 Weight 114.6 kg 116.1 kg General appearance: PRESENT: no acute distress, obese Head exam: PRESENT: atraumatic Eye exam: PRESENT: PERRLA Ear exam: PRESENT: normal external ear exam Mouth exam: PRESENT: dry mucosa, neck supple Teeth exam: PRESENT: poor dentation Neck exam: ABSENT: carotid bruit, JVD, lymphadenopathy, thyromegaly Respiratory exam: PRESENT: decreased breath sounds Cardiovascular exam: PRESENT: RRR. ABSENT: diastolic murmur, rubs, systolic murmur GI/Abdominal exam: PRESENT: normal bowel sounds, soft. ABSENT: distended, guarding, mass, organolmegaly, rebound, tenderness Rectal exam: PRESENT: deferred Extremities exam: PRESENT: full ROM. ABSENT: calf tenderness, clubbing, pedal edema Neurological exam: PRESENT: alert, awake, oriented to person, oriented to place, oriented to time, oriented to situation, CN II-XII grossly intact. ABSENT: motor sensory deficit Psychiatric exam: PRESENT: anxious Results Laboratory Results: 07/02/19 04:33 07/02/19 04:33 07/02/19 07/02/19 04:33 04:33 WBC 6.3 RBC 3.26 L Hgb 9.1 L Hct 27.3 L MCV 84 MCH 27.9 MCHC 33.3 RDW 15.8 H Plt Count 178 Seg Neutrophils % 74.8 Sodium 134.2 L Potassium 4.2 Chloride 102 Carbon Dioxide 23 Anion Gap 9 BUN 30 H Creatinine 1.62 H Est GFR ( Amer) 53 L Glucose 249 H Calcium 7.9 L Phosphorus 2.5 Magnesium 1.7 Total Bilirubin 1.2 AST 43 Alkaline Phosphatase 38 Total Protein 6.2 L Albumin 2.9 L 06/30/19 12:17 Foot - Left Gram Stain - Final 06/30/19 12:17 Foot - Left Wound Culture - Final Group B Beta Streptococcus Skin Tabitha Prevotella Species Impressions: Foot X-Ray 06/30/19 12:24 IMPRESSION: 1. Soft tissue swelling and subcutaneous emphysema centered around the 1st and 2nd toes. There is no osseous erosion or widening of the 1st MTP joint space to suggest an acute osteomyelitis. If clinical concern persists correlation with MRI is recommended. 2. Nonspecific thickening of the Achilles tendon silhouette - correlate with clinical findings to exclude at tendinosis/tear, gouty infiltration, rheumatoid arthritis or retrocalcaneal bursitis. Lower Extremity MRI 07/01/19 00:00 IMPRESSION: 1. Cellulitis and evidence of superficial ulceration. No gross abscess. No evidence of osteomyelitis. Assessment and Plan - Diagnosis (1) Diabetic ulcer of left foot Qualifiers: Diabetic foot ulcer location: toe Diabetes mellitus type: type 2 Is this a current diagnosis for this admission?: Yes (2) Acute renal failure Is this a current diagnosis for this admission?: Yes (3) Type 2 diabetes mellitus Is this a current diagnosis for this admission?: Yes (4) Lactic acidosis Is this a current diagnosis for this admission?: Yes (5) Hyponatremia Is this a current diagnosis for this admission?: Yes - Plan Summary Summary: (1) Diabetic ulcer of left foot Qualifiers: Diabetic foot ulcer location: toe Diabetes mellitus type: type 2 Is this a current diagnosis for this admission?: Yes Plan: 06/30/2019-admit to medical surgical. Vancomycin and Zosyn per pharmacy dosing. Blood cultures and wound culture will be obtained. I have consulted Dr. Alvares in consultation for possible surgical I/D. Patient will be made n.p.o. after midnight for possible intervention in a.m. Will give patient Dilaudid 1 mg IV every 3 hours PRN for pain or Percocet 5/325 mg 1 p.o. every 4 hours as needed pain. We will also perform Dakin's solution soaks twice a day. 07/01/[id number]-ziem-old male with history of type 2 diabetes mellitus admitted with left foot diabetic ulcer with possible abscess. Going for surgical debridement today. Presently on vancomycin and Zosyn. Cultures are pending so far. Plan to do the MRI of the left foot today to see if there is any osteomyelitis. Patient receiving Percocet 5 through 25 mg every 4 PRN for pain. He is also receiving IV Dilaudid every 3 hours as needed. 07/02/2019-patient came in with left foot wound MRI of the left foot came back negative for osteomyelitis. Status post surgery today with the debridement of the wound removal of the necrotic tissue including the skin and deep fascia. Cultures came back positive for group B streptococcus and group F streptococcus. Continue vancomycin and Zosyn. (2) Type 2 diabetes mellitus Is this a current diagnosis for this admission?: Yes Plan: 06/30/2019-patient's blood sugar to 400 range at this time. We want to decrease that for possible surgical intervention in a.m. I will do a sliding scale insulin every 2 hours at this time to have patient's blood sugar down to an acceptable range at which time we will switch over to every 6 hours. Patient will be n.p.o. after midnight for surgical intervention. After which we will place him on a diet and continue home medications. I will also give patient 10 units of Lantus at bedtime. 07/01/2019-patient has history of type 2 diabetes mellitus latest blood sugar is 182. Plan to check his hemoglobin A1c and continue to do insulin sliding scale every 6 hours. He is also on Lantus 10 units at bedtime. Diet exercise weight loss lifestyle modifications are discussed with the patient dietary consult will be requested. 07/02/2019-patient sugar is 271 today, hemoglobin A1c 10. Presently on insulin sliding scale every 6 hours on Lantus 10 units at bedtime. Plan to continue the present management adjust medications tomorrow. (3) Acute renal failure Is this a current diagnosis for this admission?: Yes Plan: 06/30/2019-patient's creatinine 2.34 at this time. No previous labs to compare to some of some this is an acute renal failure. Patient has been given 3 L of normal saline in the ER will continue normal saline at 125 mL/h. I will repeat BMP in the a.m. 07/01/2019-patient's serum creatinine today is 1.88 admission creatinine is 2.34. Patient is receiving normal saline at 125 cc/h acute kidney injury is reso lving. Kidney injury most likely secondary to prerenal causes and uncontrolled diabetes mellitus. 07/02/2019-patient's admission creatinine is 2.34 today it is 1.6. Acute kidney injury most likely secondary to prerenal causes resolving. (4) Lactic acidosis Is this a current diagnosis for this admission?: Yes Plan: 06/30/2019-patient has a elevated lactic acid at this time however I do not suspect that this is sepsis in nature. Patient is getting 3 L normal saline plus I will run saline at 125 mL an hour I will repeat a lactic acid at 7 PM. 07/01/2019-patient admitted with elevated lactic acid levels latest lactic acid level is 1.8. Lactic acidosis is resolving. Hyponatremia, patient came in with serum sodium of 131.1. Today's serum sodium is 132.6. He is receiving normal saline at 125 cc/h. Hyponatremia most likely secondary to uncontrolled diabetes mellitus. Plan is closely monitor his serum sodium levels. 07/02/2019-patient serum sodium is 134.6 hyponatremia is resolving. Presently on normal saline 125 cc/h. To repeat the labs tomorrow. Obesity patient's BMI is more than 32 diet exercise weight loss lifestyle modifications are discussed with the patient.
[2019-07-02] MEDS ORDERED: GLUCAGON,HUMAN RECOMB 1 MG INJ IM PRN (16:16)
[2019-07-02] MEDS ORDERED: DEXTROSE 50%-WATER 25 GM/50 ML DISP.SYRIN IV PRN ×2 (16:16)
[2019-07-02] MEDS ORDERED: DEXTROSE 40% GEL 15 GM TUBE PO PRN ×2 (16:16)
[2019-07-02] MEDS: MAGNESIUM OXIDE 400 MG TABLET PO SCH (18:09)
[2019-07-02] MEDS ORDERED: FUROSEMIDE INJ/PF 20 MG/2 ML SDV IV ONE (20:30)
[2019-07-02] MEDS ORDERED: MORPHINE SULFATE 10 MG/ML INJ IV ONE (20:30)
[2019-07-02 22:03] LABS: VANCOMYCIN,TROUGH 15.6 ug/mL (5.0-20.0)
[2019-07-02] MEDS: ZOLPIDEM TARTRATE 5 MG TABLET PO SCH ×2 (22:25→22:37)
[2019-07-02] MEDS: INSULIN GLARGINE,HUM.REC.ANLOG 1,000 UNIT/10 ML VIAL SUBCUT SCH (22:36)
[2019-07-03] MEDS: PIPERACILLIN SODIUM/TAZOBACTAM 3.375 GM in NORMAL SALINE 100 ML IV SCH ×4 (00:46→21:10)
[2019-07-03] MEDS: OXYCODONE-ACETAMINOPHEN 5-325 MG TABLET PO PRN (03:51)
[2019-07-03 04:45] LABS: ABSOLUTE BASOPHILS # (AUTO) 0.1 10^3/uL (0.0-0.2); ABSOLUTE EOSINOPHILS # (AUTO) 0.1 10^3/uL (0.0-0.6); ABSOLUTE MONOCYTES (AUTO) 0.8 10^3/uL (0.1-1.4); ABSOLUTE NEUT (AUTO) 5.2 10^3/uL (1.7-8.2); BASOPHILS % (AUTO) 0.7 % (0-2); EOSINOPHILS % (AUTO) 1.4 % (0-6); HEMATOCRIT 26.8 % (37.9-51.0); LYMPHOCYTES % (AUTO) 14.6 % (13-45); MEAN CORPUSCULAR HEMOGLOBIN 27.9 pg (27.0-33.4); MEAN CORPUSCULAR HGB CONC 33.6 g/dL (32.0-36.0); MEAN CORPUSCULAR VOLUME 83 fl (80-97); MONOCYTES % (AUTO) 11.3 % (3-13); PLATELET COUNT 200 10^3/uL (150-450); RED BLOOD COUNT 3.22 10^6/uL (4.35-5.55); RED CELL DISTRIBUTION WIDTH 15.8 % (11.5-14.0); TOTAL CELLS COUNTED % (AUTO) 100 %; WHITE BLOOD COUNT 7.2 10^3/uL (4.0-10.5)
[2019-07-03 05:04] LABS: ANION GAP 8 (5-19); BLOOD UREA NITROGEN 30 mg/dL (7-20); CALCIUM 8.2 mg/dL (8.4-10.2); CARBON DIOXIDE 25 mmol/L (22-30); CHLORIDE 101 mmol/L (98-107); GLUCOSE 247 mg/dL (75-110); PHOSPHORUS 2.5 mg/dL (2.5-4.5); POTASSIUM 4.1 mmol/L (3.6-5.0)
[2019-07-03] MEDS: INSULIN REG, HUMAN 100 UNIT/ML 3 ML VIAL (PYX) SUBCUT SCH ×4 (08:06→21:09)
--- NOTE | 2019-07-03 08:59 | PDOC PROGRESS REPORT ---
Subjective Progress Note for:: 07/03/19 Subjective:: 58 year old male who presents with left foot pain. Patient has known history diabetes and gets frequent ingrown toenails. Patient this was last day he had an ingrown was removed and that is just diabetic foot ulcer popped up overnight. He denied any other symptoms but complains of pain that is mild to moderate in nature. He does have serosanguineous drainage from in between the great toe and second toe that is a foul smell. No other associated symptoms. No treatment prior to arrival all active is been aggravating factor. 07/01/[id number]-muoc-old male with history of type 2 diabetes mellitus, history of ingrown pain is last week ingrown toenail was removed and foot ulcer popped up overnight. Associated with the serosanguineous drainage between the great toe and second toe. With foul-smelling. Ortho consult was done this morning patient wants to keep the toes so he is going for surgical debridement. Left foot x-ray did not suggestive of an osteomyelitis but I am planning to go ahead and do the MRI of the left lower extremity without contrast because creatinine is 1.88. No acute events since admission. Afebrile. 07/02/[id number]-haow-old male with history of type 2 diabetes mellitus admitted with left foot cellulitis with gangrene. Went for the surgical procedure with the debridement of the wound removal of the necrotic skin deep fascia. Not including the bone. Patient is sleepy and groggy. No complaints. 07/[id number]-ejbf-old male with history of type 2 diabetes mellitus admitted with left toe cellulitis and gangrene status post debridement was done yesterday. Blood cultures came back positive for gram-negative rods. He is getting vancomycin and Zosyn. Afebrile. No acute events in the last 24 hours. Plan is to continue the present management. Reason For Visit: DIABETIC FOOT ULCER Physical Exam Vital Signs: Temp Pulse Resp BP Pulse Ox 98.2 F 65 18 140/77 H 96 07/02/19 23:52 07/02/19 23:52 07/02/19 23:52 07/02/19 23:52 07/02/19 23:52 Intake & Output 07/02/19 07/03/19 07/04/19 06:59 06:59 06:59 Intake Total 1694 1986 Output Total 448 4786 Balance 1746 -171 Weight 116.1 kg 115.3 kg General appearance: PRESENT: no acute distress, obese Head exam: PRESENT: atraumatic Eye exam: PRESENT: PERRLA Mouth exam: PRESENT: moist, tongue midline Teeth exam: PRESENT: poor dentation Neck exam: ABSENT: carotid bruit, JVD, lymphadenopathy, thyromegaly Respiratory exam: PRESENT: decreased breath sounds Cardiovascular exam: PRESENT: RRR. ABSENT: diastolic murmur, rubs, systolic murmur GI/Abdominal exam: PRESENT: normal bowel sounds, soft. ABSENT: distended, guarding, mass, organolmegaly, rebound, tenderness Rectal exam: PRESENT: deferred Extremities exam: PRESENT: full ROM. ABSENT: calf tenderness, clubbing, pedal edema Neurological exam: PRESENT: alert, awake, oriented to person, oriented to place, oriented to time, oriented to situation, CN II-XII grossly intact. ABSENT: motor sensory deficit Psychiatric exam: PRESENT: appropriate affect, normal mood. ABSENT: homicidal ideation, suicidal ideation Results Laboratory Results: 07/03/19 04:09 07/03/19 04:09 07/03/19 07/03/19 04:09 04:09 WBC 7.2 RBC 3.22 L Hgb 9.0 L Hct 26.8 L MCV 83 MCH 27.9 MCHC 33.6 RDW 15.8 H Plt Count 200 Seg Neutrophils % 72.0 Sodium 134.3 L Potassium 4.1 Chloride 101 Carbon Dioxide 25 Anion Gap 8 BUN 30 H Creatinine 1.52 H Est GFR ( Amer) 57 L Glucose 247 H Calcium 8.2 L Phosphorus 2.5 Magnesium 1.8 06/30/19 12:17 Foot - Left Gram Stain - Final 06/30/19 12:17 Foot - Left Wound Culture - Final Group B Beta Streptococcus Skin Tabitha Prevotella Species Impressions: Foot X-Ray 06/30/19 12:24 IMPRESSION: 1. Soft tissue swelling and subcutaneous emphysema centered around the 1st and 2nd toes. There is no osseous erosion or widening of the 1st MTP joint space to suggest an acute osteomyelitis. If clinical concern persists correlation with MRI is recommended. 2. Nonspecific thickening of the Achilles tendon silhouette - correlate with clinical findings to exclude at tendinosis/tear, gouty infiltration, rheumatoid arthritis or retrocalcaneal bursitis. Lower Extremity MRI 07/01/19 00:00 IMPRESSION: 1. Cellulitis and evidence of superficial ulceration. No gross abscess. No evidence of osteomyelitis. Assessment and Plan - Diagnosis (1) Diabetic ulcer of left foot Qualifiers: Diabetic foot ulcer location: toe Diabetes mellitus type: type 2 Is this a current diagnosis for this admission?: Yes (2) Acute renal failure Is this a current diagnosis for this admission?: Yes (3) Type 2 diabetes mellitus Is this a current diagnosis for this admission?: Yes (4) Lactic acidosis Is this a current diagnosis for this admission?: Yes (5) Hyponatremia Is this a current diagnosis for this admission?: Yes - Plan Summary Summary: (1) Diabetic ulcer of left foot Qualifiers: Diabetic foot ulcer location: toe Diabetes mellitus type: type 2 Is this a current diagnosis for this admission?: Yes Plan: 06/30/2019-admit to medical surgical. Vancomycin and Zosyn per pharmacy dosing. Blood cultures and wound culture will be obtained. I have consulted Dr. Alvares in consultation for possible surgical I/D. Patient will be made n.p.o. after midnight for possible intervention in a.m. Will give patient Dilaudid 1 mg IV every 3 hours PRN for pain or Percocet 5/325 mg 1 p.o. every 4 hours as needed pain. We will also perform Dakin's solution soaks twice a day. 07/01/[id number]-ahzn-old male with history of type 2 diabetes mellitus admitted with left foot diabetic ulcer with possible abscess. Going for surgical debridement today. Presently on vancomycin and Zosyn. Cultures are pending so far. Plan to do the MRI of the left foot today to see if there is any osteomye litis. Patient receiving Percocet 5 through 25 mg every 4 PRN for pain. He is also receiving IV Dilaudid every 3 hours as needed. 07/02/2019-patient came in with left foot wound MRI of the left foot came back negative for osteomyelitis. Status post surgery today with the debridement of the wound removal of the necrotic tissue including the skin and deep fascia. Cultures came back positive for group B streptococcus and group F streptococcus. Continue vancomycin and Zosyn. 07/03/2019-patient admitted with left foot diabetic ulcer, MRI of the left foot was negative for osteomyelitis, status post debridement was done yesterday. Wound cultures are positive for group F beta Streptococcus and group B Streptococcus. Blood cultures came back positive for gram-negative rods. Presently on IV vancomycin and Zosyn. Plan is to continue the present management. Physical therapy consult will be requested for ambulation. (2) Type 2 diabetes mellitus Is this a current diagnosis for this admission?: Yes Plan: 06/30/2019-patient's blood sugar to 400 range at this time. We want to decrease that for possible surgical intervention in a.m. I will do a sliding scale insulin every 2 hours at this time to have patient's blood sugar down to an acceptable range at which time we will switch over to every 6 hours. Patient will be n.p.o. after midnight for surgical intervention. After which we will place him on a diet and continue home medications. I will also give patient 10 units of Lantus at bedtime. 07/01/2019-patient has history of type 2 diabetes mellitus latest blood sugar is 182. Plan to check his hemoglobin A1c and continue to do insulin sliding scale every 6 hours. He is also on Lantus 10 units at bedtime. Diet exercise weight loss lifestyle modifications are discussed with the patient dietary consult will be requested. 07/02/2019-patient sugar is 271 today, hemoglobin A1c 10. Presently on insulin sliding scale every 6 hours on Lantus 10 units at bedtime. Plan to continue the present management adjust medications tomorrow. 07/03/2019-patient's latest blood sugar is 265, hemoglobin A1c is 10 presently on Lantus 10 units twice a day and insulin sliding scale plan is to increase the dose to 15 units of Lantus twice a day and continue with insulin sliding scale before meals and at bedtime. (3) Acute renal failure Is this a current diagnosis for this admission?: Yes Plan: 06/30/2019-patient's creatinine 2.34 at this time. No previous labs to compare to some of some this is an acute renal failure. Patient has been given 3 L of normal saline in the ER will continue normal saline at 125 mL/h. I will repeat BMP in the a.m. 07/01/2019-patient's serum creatinine today is 1.88 admission creatinine is 2.34. Patient is receiving normal saline at 125 cc/h acute kidney injury is resolving. Kidney injury most likely secondary to prerenal causes and uncontrolled diabetes mellitus. 07/02/2019-patient's admission creatinine is 2.34 today it is 1.6. Acute kidney injury most likely secondary to prerenal causes resolving. 07/03/2019-patient serum creatinine today is 1.5 continue to show improvement. Do not have the baseline creatinine. (4) Lactic acidosis Is this a current diagnosis for this admission?: Yes Plan: 06/30/2019-patient has a elevated lactic acid at this time however I do not suspect that this is sepsis in nature. Patient is getting 3 L normal saline plus I will run saline at 125 mL an hour I will repeat a lactic acid at 7 PM. 07/01/2019-patient admitted with elevated lactic acid levels latest lactic acid level is 1.8. Lactic acidosis is resolving. Hyponatremia, patient came in with serum sodium of 131.1. Today's serum sodium is 132.6. He is receiving normal saline at 125 cc/h. Hyponatremia most likely secondary to uncontrolled diabetes mellitus. Plan is closely monitor his serum sodium levels. 07/02/2019-patient serum sodium is 134.6 hyponatremia is resolving. Presently on normal saline 125 cc/h. To repeat the labs tomorrow. 07/03/2019-patient serum sodium is 134, blood sugar is 261 corrected serum sodium probably around 136. Patient is presently off the IV fluids. Obesity patient's BMI is more than 32 diet exercise weight loss lifestyle modifications are discussed with the patient. 5.congestive heart failure Patient is given the history of congestive heart failure most likely chronic systolic heart failure. Euvolemic. We are watching for the fluid overload.
[2019-07-03] MEDS: INSULIN GLARGINE,HUM.REC.ANLOG 1,000 UNIT/10 ML VIAL SUBCUT SCH ×2 (09:40→22:43)
[2019-07-03] MEDS: MAGNESIUM OXIDE 400 MG TABLET PO SCH ×2 (10:26→17:48)
[2019-07-03] MEDS: ISOSORBIDE MONONITRATE 30 MG TAB.ER.24H PO SCH (10:26)
[2019-07-03] MEDS: CARVEDILOL 12.5 MG TABLET PO SCH ×2 (10:26→21:09)
[2019-07-03] MEDS: FENOFIBRATE NANOCRYSTALLIZED 145 MG TABLET PO SCH (10:26)
[2019-07-03] MEDS: FUROSEMIDE 40 MG TABLET PO SCH (10:27)
[2019-07-03] MEDS: PANTOPRAZOLE SODIUM 40 MG TABLET.DR PO SCH (10:27)
[2019-07-03] MEDS: VANCOMYCIN HCL 1,000 MG in DEXTROSE 5%-WATER 250 ML IV SCH ×2 (10:32→22:23)
[2019-07-03] MEDS: SODIUM HYPOCHLORITE 0.25% SOLN 473 ML BOTTLE TP SCH ×2 (10:33→17:49)
[2019-07-03] MEDS ORDERED: FUROSEMIDE INJ/PF 40 MG/4 ML SDV IV ONE ×2 (10:44→16:55)
--- NOTE | 2019-07-03 12:31 | PDOC PROGRESS REPORT ---
Subjective Progress Note for:: 07/03/19 Subjective:: Patient lying in bed comfortably. No issues overnight. Pain controlled. No fever chills or sweats. Reason For Visit: DIABETIC FOOT ULCER Physical Exam Vital Signs: Temp Pulse Resp BP Pulse Ox 98.2 F 65 18 140/77 H 96 07/02/19 23:52 07/02/19 23:52 07/02/19 23:52 07/02/19 23:52 07/02/19 23:52 Intake & Output 07/02/19 07/03/19 07/04/19 06:59 06:59 06:59 Intake Total 3546 1987 Output Total 800 2115 Balance 3386 -733 Weight 116.1 kg 115.3 kg Musculoskeletal exam: PRESENT: other - Left lower extremity: Dressing removed today. Large defect along the volar aspect of the great toe at the level of the MTP. There is no evidence of exposed bone however underlying flexor sheath and intrinsic muscles noted. No purulent drainage. No palpable fluctuance or expressible drainage. Results Laboratory Results: 07/03/19 04:09 07/03/19 04:09 07/03/19 07/03/19 04:09 04:09 WBC 7.2 RBC 3.22 L Hgb 9.0 L Hct 26.8 L MCV 83 MCH 27.9 MCHC 33.6 RDW 15.8 H Plt Count 200 Seg Neutrophils % 72.0 Sodium 134.3 L Potassium 4.1 Chloride 101 Carbon Dioxide 25 Anion Gap 8 BUN 30 H Creatinine 1.52 H Est GFR ( Amer) 57 L Glucose 247 H Calcium 8.2 L Phosphorus 2.5 Magnesium 1.8 06/30/19 12:52 Blood Blood Culture - Final Group F Beta Streptococcus 06/30/19 12:17 Foot - Left Gram Stain - Final 06/30/19 12:17 Foot - Left Wound Culture - Final Group B Beta Streptococcus Skin Tabitha Prevotella Species Impressions: Foot X-Ray 06/30/19 12:24 IMPRESSION: 1. Soft tissue swelling and subcutaneous emphysema centered around the 1st and 2nd toes. There is no osseous erosion or widening of the 1st MTP j oint space to suggest an acute osteomyelitis. If clinical concern persists correlation with MRI is recommended. 2. Nonspecific thickening of the Achilles tendon silhouette - correlate with clinical findings to exclude at tendinosis/tear, gouty infiltration, rheumatoid arthritis or retrocalcaneal bursitis. Lower Extremity MRI 07/01/19 00:00 IMPRESSION: 1. Cellulitis and evidence of superficial ulceration. No gross abscess. No evidence of osteomyelitis. Assessment & Plan - Diagnosis (1) Diabetic ulcer of left foot Qualifiers: Diabetic foot ulcer location: toe Diabetes mellitus type: type 2 Is this a current diagnosis for this admission?: Yes Plan: Status post irrigation debridement left great toe Cultures have demonstrated polymicrobial infection currently patient is on Zosyn. At this point his blood cultures were also positive and thus will require IV antibiotics as per hospitalist recommendation. Patient will require daily dressing changes until healing patient also understands there is the possibility of requiring ray resection in the future. We will continue current management.
[2019-07-03] MEDS ORDERED: PIPERACILLIN SODIUM/TAZOBACTAM 3.375 GM in NORMAL SALINE 100 ML IV SCH (21:00)
[2019-07-03] MEDS: ZOLPIDEM TARTRATE 5 MG TABLET PO SCH (21:11)
[2019-07-04] MEDS: OXYCODONE-ACETAMINOPHEN 5-325 MG TABLET PO PRN ×3 (03:03→19:53)
[2019-07-04] MEDS: PIPERACILLIN SODIUM/TAZOBACTAM 3.375 GM in NORMAL SALINE 100 ML IV SCH ×4 (03:05→21:31)
[2019-07-04 06:38] LABS: ALKALINE PHOSPHATASE 48 U/L (38-126); ANION GAP 10 (5-19); ASPARTATE AMINO TRANSFERASE 206 U/L (17-59); BILIRUBIN,DIRECT 0.9 mg/dL (0.0-0.4); BILIRUBIN,TOTAL 1.5 mg/dL (0.2-1.3); BLOOD UREA NITROGEN 30 mg/dL (7-20); CALCIUM 8.4 mg/dL (8.4-10.2); CARBON DIOXIDE 27 mmol/L (22-30); CHLORIDE 100 mmol/L (98-107); GLUCOSE 190 mg/dL (75-110); POTASSIUM 3.9 mmol/L (3.6-5.0); TOTAL PROTEIN 6.3 g/dL (6.3-8.2)
[2019-07-04 06:50] LABS: HEMATOCRIT 27.7 % (37.9-51.0); HEMOGLOBIN 9.2 g/dL (13.5-17.0); MEAN CORPUSCULAR HEMOGLOBIN 27.7 pg (27.0-33.4); MEAN CORPUSCULAR HGB CONC 33.3 g/dL (32.0-36.0); MEAN CORPUSCULAR VOLUME 83 fl (80-97); PLATELET COUNT 249 10^3/uL (150-450); RED BLOOD COUNT 3.33 10^6/uL (4.35-5.55); RED CELL DISTRIBUTION WIDTH 15.8 % (11.5-14.0); WHITE BLOOD COUNT 8.5 10^3/uL (4.0-10.5)
--- NOTE | 2019-07-04 07:39 | PDOC PROGRESS REPORT ---
Subjective Subjective:: Patient lying in bed comfortably. No issues overnight. Pain controlled. No fever chills or sweats. Was able to ambulate 100 feet with a walker. Has been maintaining touchdown weightbearing on the heel. Reason For Visit: DIABETIC FOOT ULCER Physical Exam Vital Signs: Temp Pulse Resp BP Pulse Ox 98.1 F 52 L 19 112/55 L 99 07/03/19 20:11 07/04/19 00:09 07/04/19 00:09 07/04/19 00:09 07/04/19 00:09 Intake & Output 07/03/19 07/04/19 07/05/19 06:59 06:59 06:59 Intake Total 1986 1597 Output Total 5274 7013 Balance -668 -899 Weight 115.3 kg 119.4 kg Musculoskeletal exam: PRESENT: other - Left foot: Wound along the volar aspect of the great toe at the level of the MCP joint. Granulation tissue noted. No active purulence. No increased erythema. No streaking erythema. No palpable fluctuance or expressible drainage Results Laboratory Results: 07/04/19 05:45 07/04/19 07/04/19 05:45 05:45 Seg Neutrophils % Not Reportable Sodium 137.0 Potassium 3.9 Chloride 100 Carbon Dioxide 27 Anion Gap 10 BUN 30 H Creatinine 1.52 H Est GFR ( Amer) 57 L Glucose 190 H Calcium 8.4 Magnesium 1.7 Total Bilirubin 1.5 H AST 206 H Alkaline Phosphatase 48 Total Protein 6.3 Albumin 3.0 L 06/30/19 12:52 Blood Blood Culture - Final Group F Beta Streptococcus Impressions: Foot X-Ray 06/30/19 12:24 IMPRESSION: 1. Soft tissue swelling and subcutaneous emphysema centered around the 1st and 2nd toes. There is no osseous erosion or widening of the 1st MTP joint space to suggest an acute osteomyelitis. If clinical concern persists correlation with MRI is recommended. 2. Nonspecific thickening of the Achilles tendon silhouette - correlate with clinical findings to exclude at tendinosis/tear, gouty infiltration, rheumatoid arthritis or retrocalcaneal bursitis. Lower Extremity MRI 07/01/19 00:00 IMPRESSION: 1. Cellulitis and evidence of superficial ulceration. No gross abscess. No evidence of osteomyelitis. Assessment & Plan - Diagnosis (1) Diabetic ulcer of left foot Qualifiers: Diabetic foot ulcer location: toe Diabetes mellitus type: type 2 Is this a current diagnosis for this admission?: Yes Plan: Status post irrigation debridement left great toe Cultures have demonstrated polymicrobial infection currently patient is on Zosyn/Vanco. We will continue IV antibiotics/treatment as per hospitalist recommendations. In the meantime we will continue daily dressing changes. Anticipate patient will require long-term IV antibiotics unfortunately his social situation is complicated by the fact patient is from [place]. We will continue to monitor wound. - Time Time Spent with patient: Less than 15 minutes
[2019-07-04] MEDS: INSULIN REG, HUMAN 100 UNIT/ML 3 ML VIAL (PYX) SUBCUT SCH ×4 (08:04→21:31)
[2019-07-04 08:31] LABS: ABSOLUTE LYMPHOCYTES# (MANUAL) 1.6 10^3/uL (0.5-4.7); ABSOLUTE MONOCYTES # (MANUAL) 0.3 10^3/uL (0.1-1.4); BAND NEUTROPHILS % (MANUAL) 2 % (3-5); BASOPHILS % (MANUAL) 0 % (0-2); EOSINOPHILS % (MANUAL) 5 % (0-6); LYMPHOCYTES % (MANUAL) 16 % (13-45); METAMYELOCYTES % (MANUAL) 1 % (0); MONOCYTES % (MANUAL) 4 % (3-13); SEGMENTED NEUTROPHILS % (MAN) 69 % (42-78); TOTAL CELLS COUNTED 100
[2019-07-04 08:34] LABS: ANISOCYTOSIS SLIGHT
[2019-07-04 08:35] LABS: PLATELET COMMENT ADEQUATE
[2019-07-04] MEDS: ISOSORBIDE MONONITRATE 30 MG TAB.ER.24H PO SCH (09:33)
[2019-07-04] MEDS: FENOFIBRATE NANOCRYSTALLIZED 145 MG TABLET PO SCH (09:33)
[2019-07-04] MEDS: CARVEDILOL 12.5 MG TABLET PO SCH ×2 (09:34→21:29)
[2019-07-04] MEDS: MAGNESIUM OXIDE 400 MG TABLET PO SCH ×2 (09:34→18:40)
[2019-07-04] MEDS: PANTOPRAZOLE SODIUM 40 MG TABLET.DR PO SCH (09:34)
[2019-07-04] MEDS: FUROSEMIDE 40 MG TABLET PO SCH ×2 (09:34→18:39)
[2019-07-04] MEDS ORDERED: ALBUTEROL SULFATE 0.042% NEB (1.25 MG/3 ML) AMPUL NEB PRN (09:57)
--- NOTE | 2019-07-04 09:57 | PDOC PROGRESS REPORT ---
Subjective Progress Note for:: 07/04/19 Subjective:: 58 year old male who presents with left foot pain. Patient has known history diabetes and gets frequent ingrown toenails. Patient this was last day he had an ingrown was removed and that is just diabetic foot ulcer popped up overnight. He denied any other symptoms but complains of pain that is mild to moderate in nature. He does have serosanguineous drainage from in between the great toe and second toe that is a foul smell. No other associated symptoms. No treatment prior to arrival all active is been aggravating factor. 07/01/[id number]-old male with history of type 2 diabetes mellitus, history of ingrown pain is last week ingrown toenail was removed and foot ulcer popped up overnight. Associated with the serosanguineous drainage between the great toe and second toe. With foul-smelling. Ortho consult was done this morning patient wants to keep the toes so he is going for surgical debridement. Left foot x-ray did not suggestive of an osteomyelitis but I am planning to go ahead and do the MRI of the left lower extremity without contrast because creatinine is 1.88. No acute events since admission. Afebrile. 07/02/[id number]-tmkm-old male with history of type 2 diabetes mellitus admitted with left foot cellulitis with gangrene. Went for the surgical procedure with the debridement of the wound removal of the necrotic skin deep fascia. Not including the bone. Patient is sleepy and groggy. No complaints. 07/03/[id number]-omaa-old male with history of type 2 diabetes mellitus admitted with left toe cellulitis and gangrene status post debridement was done yesterday. Blood cultures came back positive for gram-negative rods. He is getting vancomycin and Zosyn. Afebrile. No acute events in the last 24 hours. Plan is to continue the present management. 07/04/2019-no acute events in the last 24 hours. Afebrile. As per the orthopedic team patient need a long-term IV antibiotic therapy. Wound cultures are positive for group B and group f streptococcus. On IV vancomycin and Zosyn. Plan is to continue the present management. Reason For Visit: DIABETIC FOOT ULCER Physical Exam Vital Signs: Temp Pulse Resp BP Pulse Ox 98.1 F 52 L 19 112/55 L 99 07/03/19 20:11 07/04/19 00:09 07/04/19 00:09 07/04/19 00:09 07/04/19 00:09 Intake & Output 07/03/19 07/04/19 07/05/19 06:59 06:59 06:59 Intake Total 1986 1597 Output Total 2659 1950 Balance -668 -353 Weight 115.3 kg 119.4 kg General appearance: PRESENT: no acute distress, obese Head exam: PRESENT: atraumatic Eye exam: PRESENT: PERRLA Mouth exam: PRESENT: moist, tongue midline Teeth exam: PRESENT: poor dentation Neck exam: ABSENT: carotid bruit, JVD, lymphadenopathy, thyromegaly Respiratory exam: PRESENT: decreased breath sounds Cardiovascular exam: PRESENT: RRR. ABSENT: diastolic murmur, rubs, systolic murmur GI/Abdominal exam: PRESENT: normal bowel sounds, soft. ABSENT: distended, guarding, mass, organolmegaly, rebound, tenderness Rectal exam: PRESENT: deferred Neurological exam: PRESENT: alert, awake, oriented to person, oriented to place, oriented to time, oriented to situation, CN II-XII grossly intact. ABSENT: motor sensory deficit Psychiatric exam: PRESENT: appropriate affect, normal mood. ABSENT: homicidal ideation, suicidal ideation Results Laboratory Results: 07/04/19 05:45 07/04/19 05:45 07/04/19 07/04/19 05:45 05:45 WBC 8.5 RBC 3.33 L Hgb 9.2 L Hct 27.7 L MCV 83 MCH 27.7 MCHC 33.3 RDW 15.8 H Plt Count 249 Seg Neutrophils % Not Reportable Sodium 137.0 Potassium 3.9 Chloride 100 Carbon Dioxide 27 Anion Gap 10 BUN 30 H Creatinine 1.52 H Est GFR ( Amer) 57 L Glucose 190 H Calcium 8.4 Magnesium 1.7 Total Bilirubin 1.5 H AST 206 H Alkaline Phosphatase 48 Total Protein 6.3 Albumin 3.0 L 06/30/19 12:52 Blood Blood Culture - Final Group F Beta Streptococcus Impressions: Foot X-Ray 06/30/19 12:24 IMPRESSION: 1. Soft tissue swelling and subcutaneous emphysema centered around the 1st and 2nd toes. There is no osseous erosion or widening of the 1st MTP joint space to suggest an acute osteomyelitis. If clinical concern persists correlation with MRI is recommended. 2. Nonspecific thickening of the Achilles tendon silhouette - correlate with clinical findings to exclude at tendinosis/tear, gouty infiltration, rheumatoid arthritis or retrocalcaneal bursitis. Lower Extremity MRI 07/01/19 00:00 IMPRESSION: 1. Cellulitis and evidence of superficial ulceration. No gross abscess. No evidence of osteomyelitis. Assessment and Plan - Diagnosis (1) Diabetic ulcer of left foot Qualifiers: Diabetic foot ulcer location: toe Diabetes mellitus type: type 2 Is this a current diagnosis for this admission?: Yes (2) Acute renal failure Is this a current diagnosis for this admission?: Yes (3) Type 2 diabetes mellitus Is this a current diagnosis for this admission?: Yes (4) Lactic acidosis Is this a current diagnosis for this admission?: Yes (5) Hyponatremia Is this a current diagnosis for this admission?: Yes - Plan Summary Summary: (1) Diabetic ulcer of left foot Qualifiers: Diabetic foot ulcer location: toe Diabetes mellitus type: type 2 Is this a current diagnosis for this admission?: Yes Plan: 06/30/2019-admit to medical surgical. Vancomycin and Zosyn per pharmacy dosing. Blood cultures and wound culture will be obtained. I have consulted Dr. Alvares in consultation for possible surgical I/D. Patient will be made n.p.o. after midnight for possible intervention in a.m. Will give patient Dilaudid 1 mg IV every 3 hours PRN for pain or Percocet 5/325 mg 1 p.o. every 4 hours as needed pain. We will also perform Dakin's solution soaks twice a day. 07/01/[id number]-eugy-old male with history of type 2 diabetes mellitus admitted with left foot diabetic ulcer with possible abscess. Going for surgical debridement today. Presently on vancomycin and Zosyn. Cultures are pending so far. Plan to do the MRI of the left foot today to see if there is any osteomyelitis. Patient receiving Percocet 5 through 25 mg every 4 PRN for pain. He is also receiving IV Dilaudid every 3 hours as needed. 07/02/2019-patient came in with left foot wound MRI of the left foot came back negative for osteomyelitis. Status post surgery today with the debridement of the wound removal of the necrotic tissue including the skin and deep fascia. Cultures came back positive for group B streptococcus and group F streptococcus. Continue vancomycin and Zosyn. 07/03/2019-patient admitted with left foot diabetic ulcer, MRI of the left foot was negative for osteomyelitis, status post debridement was done yesterday. Wound cultures are positive for group F beta Streptococcus and group B Streptococcus. Blood cultures came back positive for gram-negative rods. Presently on IV vancomycin and Zosyn. Plan is to continue the present management. Physical therapy consult will be requested for ambulation. 07/04/2019-patient admitted with diabetic left foot ulcer status post debridement. Wound cultures came back positive for group B and group F strept ococcus present on IV vancomycin and Zosyn orthopedic team is on board. Per the orthopedic team patient may need a long-term antibiotic therapy. But the patient prefers to go to [place] next week and follow-up with his primary care physician. (2) Type 2 diabetes mellitus Is this a current diagnosis for this admission?: Yes Plan: 06/30/2019-patient's blood sugar to 400 range at this time. We want to decrease that for possible surgical intervention in a.m. I will do a sliding scale insulin every 2 hours at this time to have patient's blood sugar down to an acceptable range at which time we will switch over to every 6 hours. Patient will be n.p.o. after midnight for surgical intervention. After which we will place him on a diet and continue home medications. I will also give patient 10 units of Lantus at bedtime. 07/01/2019-patient has history of type 2 diabetes mellitus latest blood sugar is 182. Plan to check his hemoglobin A1c and continue to do insulin sliding scale every 6 hours. He is also on Lantus 10 units at bedtime. Diet exercise weight loss lifestyle modifications are discussed with the patient dietary consult will be requested. 07/02/2019-patient sugar is 271 today, hemoglobin A1c 10. Presently on insulin sliding scale every 6 hours on Lantus 10 units at bedtime. Plan to continue the present management adjust medications tomorrow. 07/03/2019-patient's latest blood sugar is 265, hemoglobin A1c is 10 presently on Lantus 10 units twice a day and insulin sliding scale plan is to increase the dose to 15 units of Lantus twice a day and continue with insulin sliding scale before meals and at bedtime. 01/2019-patient blood test blood sugar is 195. Hemoglobin A1c is 10. On Lantus 15 units twice a day and also insulin sliding scale before meals and at bedtime. Plan is to continue to closely monitor the blood sugar levels. (3) Acute renal failure Is this a current diagnosis for this admission?: Yes Plan: 06/30/2019-patient's creatinine 2.34 at this time. No previous labs to compare to some of some this is an acute renal failure. Patient has been given 3 L of normal saline in the ER will continue normal saline at 125 mL/h. I will repeat BMP in the a.m. 07/01/2019-patient's serum creatinine today is 1.88 admission creatinine is 2.34. Patient is receiving normal saline at 125 cc/h acute kidney injury is resol ving. Kidney injury most likely secondary to prerenal causes and uncontrolled diabetes mellitus. 07/02/2019-patient's admission creatinine is 2.34 today it is 1.6. Acute kidney injury most likely secondary to prerenal causes resolving. 07/03/2019-patient serum creatinine today is 1.5 continue to show improvement. Do not have the baseline creatinine. 07/04/2019-patient's creatinine today is 1.52 stable. as per the patient request presently on Lasix 40 mg p.o. twice daily. (4) Lactic acidosis Is this a current diagnosis for this admission?: Yes Plan: 06/30/2019-patient has a elevated lactic acid at this time however I do not suspect that this is sepsis in nature. Patient is getting 3 L normal saline plus I will run saline at 125 mL an hour I will repeat a lactic acid at 7 PM. 07/01/2019-patient admitted with elevated lactic acid levels latest lactic acid level is 1.8. Lactic acidosis is resolving. Hyponatremia, patient came in with serum sodium of 131.1. Today's serum sodium is 132.6. He is receiving normal saline at 125 cc/h. Hyponatremia most likely secondary to uncontrolled diabetes mellitus. Plan is closely monitor his serum sodium levels. 07/02/2019-patient serum sodium is 134.6 hyponatremia is resolving. Presently on normal saline 125 cc/h. To repeat the labs tomorrow. 07/03/2019-patient serum sodium is 134, blood sugar is 261 corrected serum sodium probably around 136. Patient is presently off the IV fluids. 07/04/2019-patient serum sodium is 137 hyponatremia due to uncontrolled diabetes mellitus resolved. Obesity patient's BMI is more than 32 diet exercise weight loss lifestyle modifications are discussed with the patient. 5.congestive heart failure Patient is given the history of congestive heart failure most likely chronic systolic heart failure. Euvolemic. We are watching for the fluid overload. 07/04/2019-patient has history of chronic systolic heart failure as per his request 40 mg of IV Lasix 1 dose was given. To increase the dose to Lasix 40 twice daily from today. To watch for the fluid overload. He is going to be placed on fluid restriction 1500 cc/day.
[2019-07-04] MEDS: VANCOMYCIN HCL 1,000 MG in DEXTROSE 5%-WATER 250 ML IV SCH ×2 (11:04→21:32)
[2019-07-04] MEDS: SODIUM HYPOCHLORITE 0.25% SOLN 473 ML BOTTLE TP SCH ×2 (12:00→18:38)
[2019-07-04] MEDS: ZOLPIDEM TARTRATE 5 MG TABLET PO SCH (21:28)
[2019-07-04] MEDS: INSULIN GLARGINE,HUM.REC.ANLOG 1,000 UNIT/10 ML VIAL SUBCUT SCH (21:30)
[2019-07-05] MEDS: PIPERACILLIN SODIUM/TAZOBACTAM 3.375 GM in NORMAL SALINE 100 ML IV SCH ×4 (03:19→22:31)
[2019-07-05 06:30] LABS: HEMATOCRIT 30.4 % (37.9-51.0); MEAN CORPUSCULAR HEMOGLOBIN 27.6 pg (27.0-33.4); MEAN CORPUSCULAR HGB CONC 32.8 g/dL (32.0-36.0); MEAN CORPUSCULAR VOLUME 84 fl (80-97); PLATELET COUNT 295 10^3/uL (150-450); RED BLOOD COUNT 3.62 10^6/uL (4.35-5.55); RED CELL DISTRIBUTION WIDTH 16.3 % (11.5-14.0); WHITE BLOOD COUNT 9.2 10^3/uL (4.0-10.5)
[2019-07-05 06:48] LABS: ALBUMIN 3.2 g/dL (3.5-5.0); ALKALINE PHOSPHATASE 50 U/L (38-126); ANION GAP 10 (5-19); ASPARTATE AMINO TRANSFERASE 128 U/L (17-59); BILIRUBIN,DIRECT 0.6 mg/dL (0.0-0.4); BILIRUBIN,TOTAL 1.2 mg/dL (0.2-1.3); BLOOD UREA NITROGEN 30 mg/dL (7-20); CALCIUM 8.7 mg/dL (8.4-10.2); CARBON DIOXIDE 28 mmol/L (22-30); CHLORIDE 99 mmol/L (98-107); GLUCOSE 214 mg/dL (75-110); TOTAL PROTEIN 6.8 g/dL (6.3-8.2)
[2019-07-05 07:25] LABS: ABSOLUTE LYMPHOCYTES# (MANUAL) 1.1 10^3/uL (0.5-4.7); ABSOLUTE MONOCYTES # (MANUAL) 0.6 10^3/uL (0.1-1.4); BAND NEUTROPHILS % (MANUAL) 1 % (3-5); BASOPHILS % (MANUAL) 0 % (0-2); EOSINOPHILS % (MANUAL) 3 % (0-6); LYMPHOCYTES % (MANUAL) 12 % (13-45); MONOCYTES % (MANUAL) 6 % (3-13); SEGMENTED NEUTROPHILS % (MAN) 78 % (42-78); TOTAL CELLS COUNTED 100
[2019-07-05 07:29] LABS: ANISOCYTOSIS 1+; PLATELET COMMENT ADEQUATE
--- NOTE | 2019-07-05 08:51 | EKG REPORT ---
SEVERITY:- ABNORMAL ECG - SINUS RHYTHM VENTRICULAR BIGEMINY NONSPECIFIC INTRAVENTRICULAR CONDUCTION DELAY : Confirmed by: Katie Gonzalez MD 05-Jul-2019 08:51:09
[2019-07-05 09:00] LABS: CREATINE KINASE MB 0.89 ng/mL (<4.55); FREE T3 3.11 pg/mL (2.77-5.27); FREE T4 (FREE THYROXINE) 2.44 ng/dL (0.78-2.19); TROPONIN I 0.016 ng/mL
[2019-07-05 09:14] LABS: THYROID STIMULATING HORMONE 3.16 uIU/mL (0.47-4.68)
[2019-07-05] MEDS: INSULIN REG, HUMAN 100 UNIT/ML 3 ML VIAL (PYX) SUBCUT SCH ×4 (09:14→22:30)
[2019-07-05] MEDS: FUROSEMIDE 40 MG TABLET PO SCH ×2 (09:15→17:51)
[2019-07-05] MEDS: FENOFIBRATE NANOCRYSTALLIZED 145 MG TABLET PO SCH (09:15)
[2019-07-05] MEDS: RIVAROXABAN 10 MG TABLET PO SCH (09:15)
[2019-07-05] MEDS: MAGNESIUM OXIDE 400 MG TABLET PO SCH ×2 (09:15→17:50)
[2019-07-05] MEDS: PANTOPRAZOLE SODIUM 40 MG TABLET.DR PO SCH (09:16)
[2019-07-05] MEDS: ISOSORBIDE MONONITRATE 30 MG TAB.ER.24H PO SCH (09:16)
--- NOTE | 2019-07-05 09:32 | RADIOLOGY REPORT (SQ) ---
EXAM DESCRIPTION: CTA CHEST COMPLETED DATE/TIME: 07/05/2019 9:07 am REASON FOR STUDY: r/o pe COMPARISON: None. TECHNIQUE: CT scan of the chest performed using helical scanning technique with dynamic intravenous contrast injection. Images reviewed with lung, soft tissue and bone windows. Reconstructed coronal and sagittal MPR images reviewed. Additional 3 dimensional post-processing performed to develop Maximal Intensity Projection images (CA P). All images stored on PACS. All CT scanners at this facility use dose modulation, iterative reconstruction, and/or weight based d osing when appropriate to reduce radiation dose to as low as reasonably achievable (ALARA). [facility]: Dose Right [facility]: CareDose [facility]: Dose Right [facility]: Teradose 4D [facility]: ApoCell CONTRAST TYPE AND DOSE: 71 mL Omnipaque 350- low osmolar. Contrast bolus optimized for the pulmonary arteries. Not diagnostic for the aorta. RENAL FUNCTION: Not provided. RADIATION DOSE: CT Rad equipment meets quality standard of care and radiation dose reduction techniq ues were employed. CTDIvol: 26.0 - 46.3 mGy. DLP: 1042 mGy-cm. . LIMITATIONS: None. FINDINGS: LUNGS AND PLEURA: Hazy scattered ground-glass opacities. Bilateral pleural effusions, rig ht greater than left. AORTA AND GREAT VESSELS: No aneurysm. Contrast bolus not optimized for the aorta. HEART: Cardiomegaly. Moderate coronary artery calcifications. PULMONARY ARTERIES: No emboli visualized in the main pulmonary arteries or the segmental branches. HILAR AND MEDIASTINAL STRUCTURES: No identified masses or abnormal nodes. HARDWARE: None in the chest. UPPER ABDOMEN: Gallstones. Limited exam. THYROID AND OTHER SOFT TISSUES: No masses. No adenopathy. BONES: No acute or significant finding. 3D MIPS: Confirm above findings. OTHER: No other significant finding. IMPRESSION: 1. NORMAL CTA OF THE CHEST. NO PULMONARY EMBOLI. 2. CARDIOMEGALY WITH PLEURAL EFFUSIONS. HAZY GROUND-GLASS OPACITIES PROBABLY DUE TO EARLY PULMONARY EDEMA. COMMENT: Quality ID # [id number]: Final reports with documentation of one or more dose reduction techniques (e.g., Automated exposure control, adjustment of the mA and/or kV according to patient size, use of iterative reconstruction technique) TECHNICAL DOCUMENTATION: JOB ID: [id number] [employer]- All Rights Reserved Reading location - IP/workstation name: [email or web address]
[2019-07-05] MEDS ORDERED: MAGNESIUM OXIDE 400 MG TABLET PO SCH (10:00)
[2019-07-05] MEDS: VANCOMYCIN HCL 1,000 MG in DEXTROSE 5%-WATER 250 ML IV SCH ×2 (10:28→22:29)
[2019-07-05] MEDS: SODIUM HYPOCHLORITE 0.25% SOLN 473 ML BOTTLE TP SCH ×2 (10:52→17:53)
--- NOTE | 2019-07-05 11:05 | PDOC PROGRESS REPORT ---
Subjective Progress Note for:: 07/05/19 Subjective:: 58 year old male who presents with left foot pain. Patient has known history diabetes and gets frequent ingrown toenails. Patient this was last he had an ingrown was removed and that is just diabetic foot ulcer popped up overnight. He denied any other symptoms but complains of pain that is mild to moderate in nature. He does have serosanguineous drainage from in between the great toe and second toe that is a foul smell. No other associated symptoms. No treatment prior to arrival all active is been aggravating factor. 07/01/[id number]-oejd-old male with history of type 2 diabetes mellitus, history of ingrown pain is last week ingrown toenail was removed and foot ulcer popped up overnight. Associated with the serosanguineous drainage between the great toe and second toe. With foul-smelling. Ortho consult was done this morning patient wants to keep the toes so he is going for surgical debridement. Left foot x-ray did not suggestive of an osteomyelitis but I am planning to go ahead and do the MRI of the left lower extremity without contrast because creatinine is 1.88. No acute events since admission. Afebrile. 07/02/[id number]-facr-old male with history of type 2 diabetes mellitus admitted with left foot cellulitis with gangrene. Went for the surgical procedure with the debridement of the wound removal of the necrotic skin deep fascia. Not including the bone. Patient is sleepy and groggy. No complaints. 07/03/[id number]-poby-old male with history of type 2 diabetes mellitus admitted with left toe cellulitis and gangrene status post debridement was done yesterday. Blood cultures came back positive for gram-negative rods. He is getting vancomycin and Zosyn. Afebrile. No acute events in the last 24 hours. Plan is to continue the present management. 07/04/2019-no acute events in the last 24 hours. Afebrile. As per the orthopedic team patient need a long-term IV antibiotic therapy. Wound cultures are positive for group B and group f streptococcus. On IV vancomycin and Zosyn. Plan is to continue the present management. 07/05/2019-nurses called me this morning around 8:00 to notify that patient is not feeling wet well ,he is pale looking and also patient is complaining of feeling the skipped beats. Went to examine the patient reassured the patient we did a stat EKG found to have heart rate of 54 and sinus rhythm with occasional PVCs. CT of the chest was done negative for PE. Restarted Xarelto. Discussed with Dr. Gonzalez he recommended to do the TSH and T3-T4 which came back negative. And recheck his magnesium level which was 1.7 to give p.o. magnesium. Reason For Visit: DIABETIC FOOT ULCER Physical Exam Vital Signs: Temp Pulse Resp BP Pulse Ox 97.9 F 55 L 21 H 140/77 H 100 07/05/19 07:51 07/05/19 07:51 07/05/19 07:51 07/05/19 07:51 07/05/19 07:51 Intake & Output 07/04/19 07/05/19 07/06/19 06:59 06:59 06:59 Intake Total 1597 2150 100 Output Total 1950 2250 Balance -353 -100 100 Weight 119.4 kg 116.7 kg General appearance: PRESENT: no acute distress, cooperative, mild distress, obese Head exam: PRESENT: atraumatic Eye exam: PRESENT: PERRLA Mouth exam: PRESENT: moist, tongue midline Teeth exam: PRESENT: poor dentation Neck exam: ABSENT: carotid bruit, JVD, lymphadenopathy, thyromegaly Respiratory exam: PRESENT: decreased breath sounds Cardiovascular exam: PRESENT: RRR. ABSENT: diastolic murmur, rubs, systolic murmur GI/Abdominal exam: PRESENT: normal bowel sounds, soft. ABSENT: distended, guarding, mass, organolmegaly, rebound, tenderness Rectal exam: PRESENT: deferred Extremities exam: PRESENT: full ROM. ABSENT: calf tenderness, clubbing, pedal edema Neurological exam: PRESENT: alert, awake, oriented to person, oriented to place, oriented to time, oriented to situation, CN II-XII grossly intact. ABSENT: motor sensory deficit Psychiatric exam: PRESENT: appropriate affect, normal mood. ABSENT: homicidal ideation, suicidal ideation Results Laboratory Results: 07/05/19 05:30 07/05/19 05:30 07/05/19 07/05/19 07/05/19 05:30 05:30 08:14 WBC 9.2 RBC 3.62 L Hgb 10.0 L Hct 30.4 L MCV 84 MCH 27.6 MCHC 32.8 RDW 16.3 H Plt Count 295 Seg Neutrophils % Not Reportable Sodium 137.3 Potassium 4.0 Chloride 99 Carbon Dioxide 28 Anion Gap 10 BUN 30 H Creatinine 1.54 H Est GFR ( Amer) 56 L Glucose 214 H Calcium 8.7 Magnesium 1.7 Total Bilirubin 1.2 AST 128 H Alkaline Phosphatase 50 Total Protein 6.8 Albumin 3.2 L TSH 3.16 Free T4 2.44 H Free T3 pg/mL 3.11 07/05/19 07/05/19 08:14 08:14 Creatine Kinase 64 CK-MB (CK-2) 0.89 Troponin I 0.016 Impressions: Foot X-Ray 06/30/19 12:24 IMPRESSION: 1. Soft tissue swelling and subcutaneous emphysema centered around the 1st and 2nd toes. There is no osseous erosion or widening of the 1st MTP joint space to suggest an acute osteomyelitis. If clinical concern persists correlation with MRI is recommended. 2. Nonspecific thickening of the Achilles tendon silhouette - correlate with clinical findings to exclude at tendinosis/tear, gouty infiltration, rheumatoid arthritis or retrocalcaneal bursitis. Lower Extremity MRI 07/01/19 00:00 IMPRESSION: 1. Cellulitis and evidence of superficial ulceration. No gross abscess. No evidence of osteomyelitis. Chest/Abdomen CTA 07/05/19 00:00 IMPRESSION: 1. NORMAL CTA OF THE CHEST. NO PULMONARY EMBOLI. 2. CARDIOMEGALY WITH PLEURAL EFFUSIONS. HAZY GROUND-GLASS OPACITIES PROBABLY DU E TO EARLY PULMONARY EDEMA. Assessment and Plan - Diagnosis (1) Diabetic ulcer of left foot Qualifiers: Diabetic foot ulcer location: toe Diabetes mellitus type: type 2 Is this a current diagnosis for this admission?: Yes (2) Acute renal failure Is this a current diagnosis for this admission?: Yes (3) Type 2 diabetes mellitus Is this a current diagnosis for this admission?: Yes (4) Lactic acidosis Is this a current diagnosis for this admission?: Yes (5) Hyponatremia Is this a current diagnosis for this admission?: Yes (7) Atrial fibrillation Is this a current diagnosis for this admission?: No - Plan Summary Summary: (1) Diabetic ulcer of left foot Qualifiers: Diabetic foot ulcer location: toe Diabetes mellitus type: type 2 Is this a current diagnosis for this admission?: Yes Plan: 06/30/2019-admit to medical surgical. Vancomycin and Zosyn per pharmacy dosing. Blood cultures and wound culture will be obtained. I have consulted Dr. Alvares in consultation for possible surgical I/D. Patient will be made n.p.o. after midnight for possible intervention in a.m. Will give patient Dilaudid 1 mg IV every 3 hours PRN for pain or Percocet 5/325 mg 1 p.o. every 4 hours as needed pain. We will also perform Dakin's solution soaks twice a day. 07/01/[id number]-jgel-old male with history of type 2 diabetes mellitus admitted with left foot diabetic ulcer with possible abscess. Going for surgical debridement today. Presently on vancomycin and Zosyn. Cultures are pending so far. Plan to do the MRI of the left foot today to see if there is any osteomyelitis. Patient receiving Percocet 5 through 25 mg every 4 PRN for pain. He is also receiving IV Dilaudid every 3 hours as needed. 07/02/2019-patient came in with left foot wound MRI of the left foot came back negative for osteomyelitis. Status post surgery today with the debridement of the wound removal of the necrotic tissue including the skin and deep fascia. Cultures came back positive for group B streptococcus and group F streptococcus. Continue vancomycin and Zosyn. 07/03/2019-patient admitted with left foot diabetic ulcer, MRI of the left foot was negative for osteomyelitis, status post debridement was done yesterday. Wound cultures are positive for group F beta Streptococcus and group B Streptococcus. Blood cultures came back positive for gram-negative rods. Presently on IV vancomycin and Zosyn. Plan is to continue the present management. Physical therapy consult will be requested for ambulation. 07/04/2019-patient admitted with diabetic left foot ulcer status post debridement. Wound cultures came back positive for group B and group F streptococcus present on IV vancomycin and Zosyn orthopedic team is on board. Per the orthopedic team patient may need a long-term antibiotic therapy. But the patient prefers to go to [place] next week and follow-up with his primary care physician. 07/05/2019-patient admitted with diabetic left foot ulcer status post debridement wound cultures came back positive for group B and group F Streptococcus. Presently on IV vancomycin and Zosyn. Orthopedic team on board. Plan is to continue the present management. (2) Type 2 diabetes mellitus Is this a current diagnosis for this admission?: Yes Plan: 06/30/2019-patient's blood sugar to 400 range at this time. We want to decrease that for possible surgical intervention in a.m. I will do a sliding scale insulin every 2 hours at this time to have patient's blood sugar down to an acceptable range at which time we will switch over to every 6 hours. Patient will be n.p.o. after midnight for surgical intervention. After which we will place him on a diet and continue home medications. I will also give patient 10 units of Lantus at bedtime. 07/01/2019-patient has history of type 2 diabetes mellitus latest blood sugar is 182. Plan to check his hemoglobin A1c and continue to do insulin sliding scale every 6 hours. He is also on Lantus 10 units at bedtime. Diet exercise weight loss lifestyle modifications are discussed with the patient dietary consult will be requested. 07/02/2019-patient sugar is 271 today, hemoglobin A1c 10. Presently on insulin sliding scale every 6 hours on Lantus 10 units at bedtime. Plan to continue the present management adjust medications tomorrow. 07/03/2019-patient's latest blood sugar is 265, hemoglobin A1c is 10 presently on Lantus 10 units twice a day and insulin sliding scale plan is to increase the dose to 15 units of Lantus twice a day and continue with insulin sliding scale before meals and at bedtime. 01/2019-patient blood test blood sugar is 195. Hemoglobin A1c is 10. On Lantus 15 units twice a day and also insulin sliding scale before meals and at bedtime. Plan is to continue to closely monitor the blood sugar levels. 07/05/2019-patient's latest blood sugar is 257, hemoglobin A1c is 10 presently on Lantus 15 units twice a day and insulin sliding scale before meals and at bedtime. Plan is to increase the Lantus to 20 twice a day. (3) Acute renal failure Is this a current diagnosis for this admission?: Yes Plan: 06/30/2019-patient's creatinine 2.34 at this time. No previous labs to compare to some of some this is an acute renal failure. Patient has been given 3 L of normal saline in the ER will continue normal saline at 125 mL/h. I will repeat BMP in the a.m. 07/01/2019-patient's serum creatinine today is 1.88 admission creatinine is 2.34. Patient is receiving normal saline at 125 cc/h acute kidney injury is resolving. Kidney injury most likely secondary to prerenal causes and uncon trolled diabetes mellitus. 07/02/2019-patient's admission creatinine is 2.34 today it is 1.6. Acute kidney injury most likely secondary to prerenal causes resolving. 07/03/2019-patient serum creatinine today is 1.5 continue to show improvement. Do not have the baseline creatinine. 07/04/2019-patient's creatinine today is 1.52 stable. as per the patient request presently on Lasix 40 mg p.o. twice daily. 07/05/2019-patient serum creatinine is 1.55 today stable. On Lasix 40 mg p.o. twice daily for congestive heart failure plan is to continue the present management. (4) Lactic acidosis Is this a current diagnosis for this admission?: Yes Plan: 06/30/2019-patient has a elevated lactic acid at this time however I do not king pect that this is sepsis in nature. Patient is getting 3 L normal saline plus I will run saline at 125 mL an hour I will repeat a lactic acid at 7 PM. 07/01/2019-patient admitted with elevated lactic acid levels latest lactic acid level is 1.8. Lactic acidosis is resolving. Hyponatremia, patient came in with serum sodium of 131.1. Today's serum sodium is 132.6. He is receiving normal saline at 125 cc/h. Hyponatremia most likely secondary to uncontrolled diabetes mellitus. Plan is closely monitor his serum sodium levels. 07/02/2019-patient serum sodium is 134.6 hyponatremia is resolving. Presently on normal saline 125 cc/h. To repeat the labs tomorrow. 07/03/2019-patient serum sodium is 134, blood sugar is 261 corrected serum sodium probably around 136. Patient is presently off the IV fluids. 07/04/2019-patient serum sodium is 137 hyponatremia due to uncontrolled diabetes mellitus resolved. 02/2019-patient serum sodium is 137 hyponatremia is resolved. Obesity patient's BMI is more than 32 diet exercise weight loss lifestyle modifications are discussed with the patient. 5.congestive heart failure Patient is given the history of congestive heart failure most likely chronic systolic heart failure. Euvolemic. We are watching for the fluid overload. 07/04/2019-patient has history of chronic systolic heart failure as per his request 40 mg of IV Lasix 1 dose was given. To increase the dose to Lasix 40 twice daily from today. To watch for the fluid overload. He is going to be placed on fluid restriction 1500 cc/day. 6.atrial fibrillation Given the history of chronic atrial fibrillation on Xarelto 20 mg daily. Medication was resumed today. CT of the chest was done this morning which was negative for PE.
--- NOTE | 2019-07-05 12:17 | PDOC PROGRESS REPORT ---
Subjective Progress Note for:: 07/05/19 Subjective:: Patient lying in bed comfortably. Patient began having some shortness of breath last evening. CT scan was done demonstrating no evidence of pulmonary embolism. Patient states this has improved. Reason For Visit: DIABETIC FOOT ULCER Physical Exam Vital Signs: Temp Pulse Resp BP Pulse Ox 97.9 F 55 L 21 H 140/77 H 100 07/05/19 07:51 07/05/19 07:51 07/05/19 07:51 07/05/19 07:51 07/05/19 07:51 Intake & Output 07/04/19 07/05/19 07/06/19 06:59 06:59 06:59 Intake Total 1597 2150 100 Output Total 1950 2250 Balance -353 -100 100 Weight 119.4 kg 116.7 kg Musculoskeletal exam: PRESENT: other - Left foot: Dressing removed. Significant defect along the plantar aspect of the great toe at the MTP joint. Evidence of granulation no streaking erythema. Tissue no palpable fluctuance or expressible purulence. No streaking erythema. No tenderness to palpation Results Laboratory Results: 07/05/19 05:30 07/05/19 05:30 07/05/19 07/05/19 07/05/19 05:30 05:30 08:14 WBC 9.2 RBC 3.62 L Hgb 10.0 L Hct 30.4 L MCV 84 MCH 27.6 MCHC 32.8 RDW 16.3 H Plt Count 295 Seg Neutrophils % Not Reportable Sodium 137.3 Potassium 4.0 Chloride 99 Carbon Dioxide 28 Anion Gap 10 BUN 30 H Creatinine 1.54 H Est GFR ( Amer) 56 L Glucose 214 H Calcium 8.7 Magnesium 1.7 Total Bilirubin 1.2 AST 128 H Alkaline Phosphatase 50 Total Protein 6.8 Albumin 3.2 L TSH 3.16 Free T4 2.44 H Free T3 pg/mL 3.11 07/05/19 07/05/19 08:14 08:14 Creatine Kinase 64 CK-MB (CK-2) 0.89 Troponin I 0.016 Impressions: Foot X-Ray 06/30/19 12:24 IMPRESSION: 1. Soft tissue swelling and subcutaneous emphysema centered around the 1st and 2nd toes. There is no osseous erosion or widening of the 1st MTP joint space to suggest an acute osteomyelitis. If clinical concern persists correlation with MRI is recommended. 2. Nonspecific thickening of the Achilles tendon silhouette - correlate with clinical findings to exclude at tendinosis/tear, gouty infiltration, rheumatoid arthritis or retrocalcaneal bursitis. Lower Extremity MRI 07/01/19 00:00 IMPRESSION: 1. Cellulitis and evidence of superficial ulceration. No gross abscess. No evidence of osteomyelitis. Chest/Abdomen CTA 07/05/19 00:00 IMPRESSION: 1. NORMAL CTA OF THE CHEST. NO PULMONARY EMBOLI. 2. CARDIOMEGALY WITH PLEURAL EFFUSIONS. HAZY GROUND-GLASS OPACITIES PROBABLY DUE TO EARLY PULMONARY EDEMA. Assessment & Plan - Diagnosis (1) Diabetic ulcer of left foot Qualifiers: Diabetic foot ulcer location: toe Diabetes mellitus type: type 2 Is this a current diagnosis for this admission?: Yes Plan: Status post irrigation debridement left great toe Cultures have demonstrated polymicrobial infection currently patient is on Zosyn/Vanco. We will continue IV antibiotics/treatment as per hospitalist recommendations. In the meantime we will continue daily dressing changes. Anticipate patient will require long-term IV antibiotics unfortunately his social situation is complicated by the fact patient is from [place]. We will continue to monitor wound. - Time Time Spent with patient: Less than 15 minutes
[2019-07-05] MEDS ORDERED: FUROSEMIDE INJ/PF 20 MG/2 ML SDV IV ONE (12:26)
--- NOTE | 2019-07-05 22:17 | PDOC CONSULTATION ---
Consultation-Blank Consultation: CARDIOLOGY CONSULTATION by Dr. Katie Gonzalez on 07/05/2019. Patient seen at 1 PM on 07/05/2019. REASON FOR CONSULTATION: Patient with generalized complaints of shortness of breath and orthopnea, and requesting a cardiology to adjust his medication. CONSULT REQUESTING PHYSICIAN: Dr. Salcedo. [facility] hospitalist physician group. The patient lives in [place]. He is here on vacation visit in [place]. HISTORY PRESENT ILLNESS: Patient with a history of dilated cardiomyopathy with ejection fraction of 25%, history of hypertension and diabetes mellitus and chronic kidney disease admitted with the infected left diabetic foot ulcer which he had debrided. The patient states that he was given IV fluids and his Lasix was held and now he has some shortness of breath and orthopnea. There is no PND or leg edema. He has no chest pain or discomfort. The patient also complains of palpitations and there is some occasional PVCs seen on the monitor. There is no recurrence of atrial fibrillation, and there is no major ventricular arrhythmias seen. Note the patient is also concerned that he was on Coreg 37.25 mg p.o. twice daily and in this admission he got only 25 mg p.o. twice daily. I have explained that this is because the patient's heart rate is slightly bradycardic although with a stable blood pressure. His GFR was 44 mL on admission and now is 46 mL and hence no significant deterioration in his renal function, in fact the renal function is slightly better than what it was in admission. Past Medical History Cardiac Medical History: Reports: Atrial Fibrillation, is now in sinus rhythm, the patient was on Xarelto which has been held for the recent surgery. Congestive Heart Failure the patient states many years ago he had a viral illness and subsequently ended up with a cardiomyopathy with LV ejection fraction 25%. There is no history of coronary artery disease and he had to clean coronaries by cardiac catheterization in the past. He was offered and extensive discussions were made about the patient having an AICD placed but the patient refused it, and this being an informed decision. The patient has no palpitations or syncope. The patient states he has been without any symptoms of heart failure until he came into the hospital where he did receive IV fluids. He also has a history of chronic kidney disease and seems to be stage III. He has history of diabetes mellitus. There is no history of COPD or asthma. There is no history of TIA or CVA. No history of sudden . The patient denies any history of sleep apnea. There is no history of seizures or headaches. There is no history of anxiety or depression. The patient has a history of chronic kidney disease most likely stage III. Endocrine Medical History: Reports: Diabetes Mellitus Type 2 GI Medical History: Reports: Gastroesophageal Reflux Disease Past Surgical History Past Surgical History: Reports: Appendectomy, Orthopedic Surgery - left knee. Social History Information Source: Patient Lives with: Family Smoking Status: Never Smoker Frequency of Alcohol Use: None Hx Recreational Drug Use: No Drugs: None Hx Prescription Drug Abuse: No - Advance Directive Resuscitation Status: Full Code. The patient's is his surrogate healthcare decision maker. Family History Family History: CAD Parental Family History Reviewed: Yes Children Family History Reviewed: Yes Sibling(s) Family History Reviewed.: Yes Medication/Allergy Allergies/Adverse Reactions: olmesartan [From Benicar] ondansetron, spider venom Review of Systems Constitutional: ABSENT: chills, fever(s), headache(s), weight gain, weight loss Eyes: ABSENT: visual disturbances Ears: ABSENT: hearing changes Cardiovascular: ABSENT: chest pain, dyspnea on exertion, edema, orthropnea, palpitations. This admission he has shortness of breath and orthopnea., But no leg edema. Respiratory: ABSENT: cough, hemoptysis Gastrointestinal: ABSENT: abdominal pain, constipation, diarrhea, hematemesis, hematochezia, nausea, vomiting Genitourinary: ABSENT: dysuria, hematuria Musculoskeletal: PRESENT: other - Left foot pain, swelling. ABSENT: joint swelling Integumentary: ABSENT: rash, wounds Neurological: ABSENT: abnormal gait, abnormal speech, confusion, dizziness, focal weakness, syncope Psychiatric: ABSENT: anxiety, depression, homidical ideation, suicidal ideation Endocrine: ABSENT: cold intolerance, heat intolerance, polydipsia, polyuria Hematologic/Lymphatic: ABSENT: easy bleeding, easy bruising Current Medications Generic Name Dose Route Start Last Admin Trade Name Freq PRN Reason Stop Dose Admin Al Hydrox/Mg Hydrox/Simethicone 30 ml 06/30/19 14:59 Maalox Plus Susp 30 Udcup PO 07/30/19 14:58 Q6HP PRN HEARTBURN Albuterol 1.25 mg 07/04/19 09:57 07/04/19 11:28 Ventolin 0.042% Neb 1.25 Mg/3 Ml Ampul NEB 08/03/19 09:56 1.25 mg RTQ6HP PRN Administration SHORTNESS OF BREATH Dextrose 12.5 gm 07/02/19 16:16 Dextrose Inj 50% Syringe (25 Gm/50 Ml) IV 08/01/19 16:15 PRN PRN FOR BG 50-69 IN ALERT PATIENT Protocol Dextrose 25 gm 07/02/19 16:16 Dextrose Inj 50% Syringe (25 Gm/50 Ml) IV 08/01/19 16:15 PRN PRN PER PROTOCOL Protocol Fenofibrate 145 mg 07/01/19 10:00 07/05/19 09:15 Tricor 145 Mg Tablet PO 07/31/19 09:59 145 mg DAILY LARISA Administration Furosemide 40 mg 07/04/19 10:00 07/05/19 17:51 Lasix 40 Mg Tablet PO 08/03/19 09:59 40 mg BID LARISA Administration Glucagon 1 mg 07/02/19 16:16 Glucagen Inj 1 Mg Vial IM 08/01/19 16:15 PRN PRN Evaluate for BG < 70 Protocol Glucose 15 gm 07/02/19 16:16 Glutose 40% Gel 15 Gm Tube PO 08/01/19 16:15 PRN PRN FOR BG 50-69 IN ALERT PATIENT Protocol Glucose 30 gm 07/02/19 16:16 Glutose 40% Gel 15 Gm Tube PO 08/01/19 16:15 PRN PRN FOR BG < 50 IN ALERT PATIENT Protocol Hydromorphone HCl 1 mg 06/30/19 15:11 07/03/19 14:46 Dilaudid Inj/Pf 2 Mg/Ml Ampule IV 07/07/19 15:10 1 mg Q3HP PRN Administration FOR PAIN Vancomycin HCl 1,000 mg/ 250 mls @ 166.667 mls/hr 07/01/19 14:00 07/05/19 12:40 Dextrose IV 07/08/19 13:59 Infused Q12 LARISA Infusion Piperacillin Sod/Tazobactam 100 mls @ 200 mls/hr 07/03/19 21:00 07/05/19 18:18 Sod 3.375 gm/ Sodium Chloride IV 07/10/19 20:59 Infused Q6A LARISA Infusion Insulin Glargine 20 unit 07/05/19 22:00 Lantus Insulin 100 Unit/1 Ml 10 Ml SUBCUT 08/04/19 21:59 QHS LARISA Insulin Human Regular 0 - 12 unit 07/02/19 22:00 07/05/19 17:49 Humulin R (Pyxis) Insulin 100 Unit/Ml 3ml SUBCUT 08/01/19 21:59 4 unit ACHS LARISA Administration Protocol Isosorbide Mononitrate 30 mg 07/01/19 10:00 07/05/19 09:16 Imdur 30 Mg Tablet.Er PO 07/31/19 09:59 30 mg DAILY LARISA Administration Magnesium Oxide 400 mg 07/02/19 18:00 07/05/19 17:50 Mag-Ox 400 Mg Tablet PO 08/01/19 17:59 400 mg BID LARISA Administration Oxycodone/Acetaminophen 1 tab 06/30/19 14:59 07/04/19 19:53 Percocet 5-325 Mg Tablet PO 07/07/19 14:58 1 tab Q4HP PRN Administration FOR PAIN Pantoprazole Sodium 40 mg 07/01/19 10:00 07/05/19 09:[address] Tablet PO 07/31/19 09:59 40 mg DAILY LARISA Administration Rivaroxaban 20 mg 07/05/19 10:00 07/05/19 09:15 Xarelto 10 Mg Tablet PO 08/04/19 09:59 20 mg DAILY LARISA Administration Sodium Chloride 2.5 ml 06/30/19 22:00 07/05/19 13:05 Saline Flush 2.5 Ml Monoject Prefil Syrin IV 07/30/19 21:59 Not Given Q8 LARISA Sodium Hypochlorite 1 applic 06/30/19 18:00 07/05/19 17:53 Dakin's 0.25% Soln 473 Ml TP 07/30/19 17:59 Not Given BID [facility] Zolpidem Tartrate 10 mg 07/01/19 22:00 07/04/19 21:28 Ambien 5 Mg Tablet PO 07/08/19 21:59 10 mg QHS LARISA Administration Discontinued Medications Generic Name Dose Route Start Last Admin Trade Name Freq PRN Reason Stop Dose Admin Bupivacaine HCl/Epinephrine Bitart Confirm 07/02/19 07:13 07/02/19 08:07 Sensorcaine 0.5%-Epi [id number] Mpf 30 Ml Vial Administered 07/02/19 07:14 30 ml Dose Administration 30 ml .ROUTE .STK-MED ONE Carvedilol 25 mg 06/30/19 22:00 07/04/19 21:29 Coreg 12.5 Mg Tablet PO 07/30/19 21:59 25 mg Q12 LARISA Administration Dextrose 12.5 gm 06/30/19 15:09 Dextrose Inj 50% Syringe (25 Gm/50 Ml) IV 07/30/19 15:08 PRN PRN FOR BG 50-69 IN ALERT PATIENT Protocol Dextrose 25 gm 06/30/19 15:09 Dextrose Inj 50% Syringe (25 Gm/50 Ml) IV 07/30/19 15:08 PRN PRN PER PROTOCOL Protocol Diphenhydramine HCl 12.5 mg 07/02/19 07:37 Benadryl Inj 50 Mg/1 Ml Vial IV 07/02/19 10:38 .WHILE IN PACU PRN ITCHING Fentanyl Citrate Confirm 07/02/19 06:42 Sublimaze Inj/Pf 100 Mcg/2 Ml Ampule Administered 07/02/19 06:43 Dose 100 mcg .ROUTE .STK-MED ONE Fentanyl Citrate 25 mcg 07/02/19 07:37 Sublimaze Inj/Pf 100 Mcg/2 Ml Ampule IV 07/02/19 10:38 .WHILE IN PACU PRN PAIN SCALE 2-3 Fentanyl Citrate 12.5 mcg 07/02/19 07:37 Sublimaze Inj/Pf 100 Mcg/2 Ml Ampule IV 07/02/19 10:38 .WHILE IN PACU PRN PAIN SCALE OF 1 Fentanyl Citrate 50 mcg 07/02/19 07:37 Sublimaze Inj/Pf 100 Mcg/2 Ml Ampule IV 07/02/19 10:38 .WHILE IN PACU PRN PAIN SCALE 4-5 Furosemide 40 mg 07/01/19 18:00 07/03/19 10:27 Lasix 40 Mg Tablet PO 07/31/19 17:59 40 mg DAILY LARISA Administration Furosemide 20 mg 07/02/19 20:30 07/02/19 20:35 Lasix Inj/Pf 20 Mg/2 Ml Sdv IV 07/02/19 20:31 20 mg NOW ONE Administration Furosemide 40 mg 07/03/19 10:44 07/03/19 17:44 Lasix Inj/Pf 40 Mg/4 Ml Sdv IV 07/03/19 10:45 Not Given NOW ONE Furosemide 40 mg 07/03/19 16:55 07/03/19 17:46 Lasix Inj/Pf 40 Mg/4 Ml Sdv IV 07/03/19 16:56 40 mg NOW ONE Administration Furosemide 20 mg 07/05/19 12:26 07/05/19 12:53 Lasix Inj/Pf 20 Mg/2 Ml Sdv IV 07/05/19 12:27 20 mg NOW ONE Administration Glucagon 1 mg 06/30/19 15:09 Glucagen Inj 1 Mg Vial IM 07/30/19 15:08 PRN PRN Evaluate for BG < 70 Protocol Glucose 15 gm 06/30/19 15:09 Glutose 40% Gel 15 Gm Tube PO 07/30/19 15:08 PRN PRN FOR BG 50-69 IN ALERT PATIENT Protocol Glucose 30 gm 06/30/19 15:09 Glutose 40% Gel 15 Gm Tube PO 07/30/19 15:08 PRN PRN FOR BG < 50 IN ALERT PATIENT Protocol Sodium Chloride 1,000 mls @ 0 mls/hr 06/30/19 13:27 06/30/19 14:39 Nacl 0.9% 1000 Ml Iv Soln IV 06/30/19 13:28 Infused BOLUS ONE Infusion Wide Open Sodium Chloride 1,000 mls @ 0 mls/hr 06/30/19 13:27 06/30/19 15:40 Nacl 0.9% 1000 Ml Iv Soln IV 06/30/19 13:28 Infused BOLUS ONE Infusion Wide Open Cefepime HCl 2 gm in 50 mls @ 100 mls/hr 06/30/19 13:30 06/30/19 14:07 Maxipime Rtu 2 Gm-D5w 50 Ml Premix Bag IV 07/07/19 13:29 Infused Q12 LARISA Infusion Sodium Chloride 1,000 mls @ 0 mls/hr 06/30/19 14:38 06/30/19 17:01 Nacl 0.9% 1000 Ml Iv Soln IV 06/30/19 14:39 Infused BOLUS ONE Infusion Wide Open Sodium Chloride 1,000 mls @ 125 mls/hr 06/30/19 14:59 07/02/19 04:24 Nacl 0.9% 1000 Ml Iv Soln IV 07/30/19 14:58 Infused CONTINUOUS PRN Infusion THIS MED IS NOT "PRN" Piperacillin Sod/Tazobactam 100 mls @ 200 mls/hr 06/30/19 18:00 07/03/19 2 0:21 Sod 3.375 gm/ Sodium Chloride IV 07/07/19 17:59 Infused Q6 LARISA Infusion Vancomycin HCl 1,500 mg/ 250 mls @ 166.667 mls/hr 07/01/19 14:00 Dextrose IV 07/08/19 13:59 DAILY@1400 LARISA Dextrose/Sodium Chloride 1,000 mls @ 100 mls/hr 07/01/19 06:40 D5-1/2ns 1000 Ml Iv Soln IV 07/31/19 06:39 CONTINUOUS PRN THIS MED IS NOT "PRN" Vancomycin HCl 1,000 mg/ 250 mls @ 166.667 mls/hr 07/01/19 12:00 Dextrose IV 07/08/19 11:59 Q12 LARISA Lactated Ringer's 1,000 mls @ 150 mls/hr 07/02/19 08:16 Lactated Ringers 1000 Ml Iv Soln IV 07/02/19 23:59 CONTINUOUS PRN THIS MED IS NOT "PRN" Insulin Glargine 10 unit 06/30/19 22:00 07/02/19 22:36 Lantus Insulin 100 Unit/1 Ml 10 Ml SUBCUT 07/30/19 21:59 Not Given QHS [facility] Insulin Glargine 15 unit 07/03/19 08:30 07/04/19 21:30 Lantus Insulin 100 Unit/1 Ml 10 Ml SUBCUT 08/02/19 08:29 15 unit QHS LARISA Administration Insulin Human Regular 8 unit 06/30/19 13:30 06/30/19 13:48 Humulin R (Pyxis) Insulin 100 Unit/Ml 3ml IV 06/30/19 13:31 8 unit NOW ONE Administration Insulin Human Regular 0 - 12 unit 06/30/19 16:00 06/30/19 18:47 Humulin R (Pyxis) Insulin 100 Unit/Ml 3ml SUBCUT 07/30/19 15:59 2 unit Q2 LARISA Administration Protocol Insulin Human Regular 0 - 12 unit 07/01/19 00:00 07/02/19 11:56 Humulin R (Pyxis) Insulin 100 Unit/Ml 3ml SUBCUT 07/31/19 00:00 9 unit Q6 [facility] Administration Protocol Ketamine HCl Confirm 07/02/19 07:19 Ketalar Inj 500 Mg/10 Ml Vial Administered 07/02/19 07:20 Dose 500 mg .ROUTE .STK-MED ONE Lidocaine HCl Confirm 07/02/19 07:12 07/02/19 08:07 Xylocaine 1% Inj-Pf (10 Mg/Ml) 30 Ml Sdv Administered 07/02/19 07:13 30 ml Dose Administration 30 ml .ROUTE .STK-MED ONE Meperidine HCl 12.5 mg 07/02/19 07:37 Demerol Inj 25 Mg/1 Ml Syringe IV 07/02/19 10:38 .WHILE IN PACU PRN Shivering Midazolam HCl Confirm 07/02/19 06:42 Versed 2 Mg/2 Ml Inj Administered 07/02/19 06:43 Dose 2 mg .ROUTE .STK-MED ONE Morphine Sulfate 1 mg 07/02/19 20:30 07/02/19 20:35 Morphine 10 Mg/Ml Inj IV 07/02/19 20:31 1 mg NOW ONE Administration Promethazine HCl 12.5 mg 07/02/19 07:37 Phenergan Inj 25 Mg/1 Ml Vial IV 07/02/19 10:38 .WHILE IN PACU PRN NAUSEA AND VOMITING Promethazine HCl 25 mg 07/02/19 07:37 Phenergan Inj 25 Mg/1 Ml Vial IV 07/02/19 10:38 .WHILE IN PACU PRN NAUSEA AND VOMITING Propofol Confirm 07/02/19 06:42 Diprivan Inj 200 Mg/20 Ml Vial Administered 07/02/19 06:43 Dose 200 mg IV .STK-MED ONE Vancomycin HCl 2,000 mg 06/30/19 13:27 06/30/19 14:22 Vancocin Inj 1000 Mg Vial IV 06/30/19 13:28 2,000 mg IVBAG (ED) ONE Administration PHYSICAL EXAMINATION: The patient is mildly obese. He he states he is having orthopnea and some mild shortness of breath. Selected Entries 07/05/19 11:46 Temperature 97.7 F Temperature Oral Source Pulse Rate 55 L Respiratory 17 Rate Blood Pressure 140/65 H Blood Pressure 90 Mean BP Location Right Arm BP Position Supine O2 Sat by Pulse 92 Oximetry Oxygen Delivery Room Air Method HEAD: Is atraumatic normocephalic. EYES: Pupils are equal round regular reactive light accommodation. Extraocular movements are normal. There is no conjunctival pallor. There is no scleral icterus. EARS: Tympanic membranes are intact. External auditory canals are clear. NOSE: There is no deviated nasal septum. There is no inflammation of the nasal mucous membrane. MOUTH: Mucous movements of the mouth are moist. Tongue is moist. There are no ulcers. There is no bleeding from the gums. THROAT: There is no redness of the oropharynx. There is no exudates. SKIN: There is no skin rashes or skin lesions there is no particular ecchymosis. NECK: There is mild JVD present. Carotids equal there is no bruits. There is no lymphadenopathy. There is no goiter. There is no accessory muscle respiration use. Trachea central. LUNGS: There is a few bibasilar rales suggestive of CHF. This is mild and minimal. HEART: S1-S2 is heard. There is no S3 gallop. There is no S4 gallop. There is systolic murmur left sternal border and the apex there is no rub. ABDOMEN: Is obese. Nont alesia. There is no hepatospleno megaly. Bowel sounds are well heard. EXTREMITIES: Femorals are diminished. There is no femoral bruits. Leg pulses are diminished. There is a dressing in the left foot which is clean and dry. There is no pedal edema. There is no cyanosis or clubbing. MANAGER TECHNICAL: The patient is conscious awake alert oriented x3 with no focal deficits. PSYCHIATRIC: The patient judgment insight are intact his affect is normal. Labs- Entire Visit 06/30/19 06/30/19 06/30/19 12:27 12:52 13:09 WBC 12.8 H RBC 3.99 L Hgb 11.3 L Hct 34.2 L MCV 86 MCH 28.2 MCHC 32.9 RDW 16.5 H Plt Count 236 Lymph % (Auto) Not Reportable [place] % (Auto) Not Reportable Eos % (Auto) Not Reportable Baso % (Auto) Not Reportable Absolute Neuts (auto) Not Reportable Absolute Lymphs (auto) Not Reportable Absolute Monos (auto) Not Reportable Absolute Eos (auto) Not Reportable Absolute Basos (auto) Not Reportable Total Counted 100 Seg Neutrophils % Not Reportable Seg Neuts % (Manual) 88 H Band Neutrophils % 1 L Lymphocytes % (Manual) 5 L Atypical Lymphs % Monocytes % (Manual) 6 Eosinophils % (Manual) 0 Basophils % (Manual) 0 Metamyelocytes % Abs Neuts (Manual) 11.4 H Abs Lymphs (Manual) 0.6 Abs Monocytes (Manual) 0.8 Absolute Eos (Manual) 0.0 Abs Basophils (Manual) 0.0 Platelet Comment ADEQUATE Polychromasia SLIGHT Anisocytosis 1+ Ovalocytes SLIGHT VBG pH 7.39 VBG pCO2 45.3 VBG HCO3 26.8 VBG Base Excess 1.7 Sodium Potassium Chloride Carbon Dioxide Anion Gap BUN Creatinine Est GFR ( Amer) Est GFR (MDRD) Non-Af Glucose POC Glucose 432 H* Hemoglobin A1c % Lactic Acid Calcium Phosphorus Magnesium Total Bilirubin Direct Bilirubin Neonat Total Bilirubin Neonat Direct Bilirubin Neonat Indirect Bili AST ALT Alkaline Phosphatase Creatine Kinase CK-MB (CK-2) Troponin I Total Protein Albumin TSH Free T4 Free T3 pg/mL Time Trough Drawn Vancomycin Trough 06/30/19 06/30/19 06/30/19 13:09 13:09 15:50 WBC RBC Hgb Hct MCV MCH MCHC RDW Plt Count Lymph % (Auto) [place] % (Auto) Eos % (Auto) Baso % (Auto) Absolute Neuts (auto) Absolute Lymphs (auto) Absolute Monos (auto) Absolute Eos (auto) Absolute Basos (auto) Total Counted Seg Neutrophils % Seg Neuts % (Manual) Band Neutrophils % Lymphocytes % (Manual) Atypical Lymphs % Monocytes % (Manual) Eosinophils % (Manual) Basophils % (Manual) Metamyelocytes % Abs Neuts (Manual) Abs Lymphs (Manual) Abs Monocytes (Manual) Absolute Eos (Manual) Abs Basophils (Manual) Platelet Comment Polychromasia Anisocytosis Ovalocytes VBG pH VBG pCO2 VBG HCO3 VBG Base Excess Sodium 131.1 L Potassium 4.5 Chloride 92 L Carbon Dioxide 24 Anion Gap 15 BUN 43 H Creatinine 2.34 H Est GFR ( Amer) 35 L Est GFR (MDRD) Non-Af 29 L Glucose 443 H* POC Glucose 272 H Hemoglobin A1c % Lactic Acid 3.9 H Calcium 8.7 Phosphorus Magnesium Total Bilirubin 1.5 H Direct Bilirubin 0.8 H Neonat Total Bilirubin Not Reportable Neonat Direct Bilirubin Not Reportable Neonat Indirect Bili Not Reportable AST 37 ALT 18 Alkaline Phosphatase 50 Creatine Kinase CK-MB (CK-2) Troponin I Total Protein 7.5 Albumin 3.8 TSH Free T4 Free T3 pg/mL Time Trough Drawn Vancomycin Trough 06/30/19 06/30/19 06/30/19 18:43 19:23 19:23 WBC RBC Hgb Hct MCV MCH MCHC RDW Plt Count Lymph % (Auto) [place] % (Auto) Eos % (Auto) Baso % (Auto) Absolute Neuts (auto) Absolute Lymphs (auto) Absolute Monos (auto) Absolute Eos (auto) Absolute Basos (auto) Total Counted Seg Neutrophils % Seg Neuts % (Manual) Band Neutrophils % Lymphocytes % (Manual) Atypical Lymphs % Monocytes % (Manual) Eosinophils % (Manual) Basophils % (Manual) Metamyelocytes % Abs Neuts (Manual) Abs Lymphs (Manual) Abs Monocytes (Manual) Absolute Eos (Manual) Abs Basophils (Manual) Platelet Comment Polychromasia Anisocytosis Ovalocytes VBG pH VBG pCO2 VBG HCO3 VBG Base Excess Sodium 132.6 L Potassium 4.0 Chloride 98 Carbon Dioxide 25 Anion Gap 10 BUN 37 H Creatinine 1.88 H Est GFR ( Amer) 45 L Est GFR (MDRD) Non-Af 37 L Glucose 182 H POC Glucose 178 H Hemoglobin A1c % Lactic Acid 1.8 Calcium 7.9 L Phosphorus Magnesium Total Bilirubin Direct Bilirubin Neonat Total Bilirubin Neonat Direct Bilirubin Neonat Indirect Bili AST ALT Alkaline Phosphatase Creatine Kinase CK-MB (CK-2) Troponin I Total Protein Albumin TSH Free T4 Free T3 pg/mL Time Trough Drawn Vancomycin Trough 06/30/19 07/01/19 07/01/19 21:07 00:05 06:15 WBC RBC Hgb Hct MCV MCH MCHC RDW Plt Count Lymph % (Auto) [place] % (Auto) Eos % (Auto) Baso % (Auto) Absolute Neuts (auto) Absolute Lymphs (auto) Absolute Monos (auto) Absolute Eos (auto) Absolute Basos (auto) Total Counted Seg Neutrophils % Seg Neuts % (Manual) Band Neutrophils % Lymphocytes % (Manual) Atypical Lymphs % Monocytes % (Manual) Eosinophils % (Manual) Basophils % (Manual) Metamyelocytes % Abs Neuts (Manual) Abs Lymphs (Manual) Abs Monocytes (Manual) Absolute Eos (Manual) Abs Basophils (Manual) Platelet Comment Polychromasia Anisocytosis Ovalocytes VBG pH VBG pCO2 VBG HCO3 VBG Base Excess Sodium Potassium Chloride Carbon Dioxide Anion Gap BUN Creatinine Est GFR ( Amer) Est GFR (MDRD) Non-Af Glucose POC Glucose 130 H 80 80 Hemoglobin A1c % Lactic Acid Calcium Phosphorus Magnesium Total Bilirubin Direct Bilirubin Neonat Total Bilirubin Neonat Direct Bilirubin Neonat Indirect Bili AST ALT Alkaline Phosphatase Creatine Kinase CK-MB (CK-2) Troponin I Total Protein Albumin TSH Free T4 Free T3 pg/mL Time Trough Drawn Vancomycin Trough 07/01/19 07/01/19 07/01/19 07:11 07:11 11:02 WBC 9.4 RBC 3.64 L Hgb 10.3 L Hct 30.8 L MCV 85 MCH 28.3 MCHC 33.4 RDW 16.0 H Plt Count 211 Lymph % (Auto) 8.9 L [place] % (Auto) 11.4 Eos % (Auto) 2.1 Baso % (Auto) 0.5 Absolute Neuts (auto) 7.2 Absolute Lymphs (auto) 0.8 Absolute Monos (auto) 1.1 Absolute Eos (auto) 0.2 Absolute Basos (auto) 0.0 Total Counted Seg Neutrophils % 77.1 Seg Neuts % (Manual) Band Neutrophils % Lymphocytes % (Manual) Atypical Lymphs % Monocytes % (Manual) Eosinophils % (Manual) Basophils % (Manual) Metamyelocytes % Abs Neuts (Manual) Abs Lymphs (Manual) Abs Monocytes (Manual) Absolute Eos (Manual) Abs Basophils (Manual) Platelet Comment Polychromasia Anisocytosis Ovalocytes VBG pH VBG pCO2 VBG HCO3 VBG Base Excess Sodium Potassium Chloride Carbon Dioxide Anion Gap BUN Creatinine Est GFR ( Amer) Est GFR (MDRD) Non-Af Glucose POC Glucose 81 Hemoglobin A1c % Lactic Acid Calcium Phosphorus 2.8 Magnesium 1.8 Total Bilirubin Direct Bilirubin Neonat Total Bilirubin Neonat Direct Bilirubin Neonat Indirect Bili AST ALT Alkaline Phosphatase Creatine Kinase CK-MB (CK-2) Troponin I Total Protein Albumin TSH Free T4 Free T3 pg/mL Time Trough Drawn Vancomycin Trough 07/01/19 07/01/19 07/02/19 16:07 21:13 00:20 WBC RBC Hgb Hct MCV MCH MCHC RDW Plt Count Lymph % (Auto) [place] % (Auto) Eos % (Auto) Baso % (Auto) Absolute Neuts (auto) Absolute Lymphs (auto) Absolute Monos (auto) Absolute Eos (auto) Absolute Basos (auto) Total Counted Seg Neutrophils % Seg Neuts % (Manual) Band Neutrophils % Lymphocytes % (Manual) Atypical Lymphs % Monocytes % (Manual) Eosinophils % (Manual) Basophils % (Manual) Metamyelocytes % Abs Neuts (Manual) Abs Lymphs (Manual) Abs Monocytes (Manual) Absolute Eos (Manual) Abs Basophils (Manual) Platelet Comment Polychromasia Anisocytosis Ovalocytes VBG pH VBG pCO2 VBG HCO3 VBG Base Excess Sodium Potassium Chloride Carbon Dioxide Anion Gap BUN Creatinine Est GFR ( Amer) Est GFR (MDRD) Non-Af Glucose POC Glucose 189 H 176 H 254 H Hemoglobin A1c % Lactic Acid Calcium Phosphorus Magnesium Total Bilirubin Direct Bilirubin Neonat Total Bilirubin Neonat Direct Bilirubin Neonat Indirect Bili AST ALT Alkaline Phosphatase Creatine Kinase CK-MB (CK-2) Troponin I Total Protein Albumin TSH Free T4 Free T3 pg/mL Time Trough Drawn Vancomycin Trough 07/02/19 07/02/19 07/02/19 04:33 04:33 04:33 WBC 6.3 RBC 3.26 L Hgb 9.1 L Hct 27.3 L MCV 84 MCH 27.9 MCHC 33.3 RDW 15.8 H Plt Count 178 Lymph % (Auto) 11.1 L [place] % (Auto) 11.3 Eos % (Auto) 2.1 Baso % (Auto) 0.7 Absolute Neuts (auto) 4.8 Absolute Lymphs (auto) 0.7 Absolute Monos (auto) 0.7 Absolute Eos (auto) 0.1 Absolute Basos (auto) 0.0 Total Counted Seg Neutrophils % 74.8 Seg Neuts % (Manual) Band Neutrophils % Lymphocytes % (Manual) Atypical Lymphs % Monocytes % (Manual) Eosinophils % (Manual) Basophils % (Manual) Metamyelocytes % Abs Neuts (Manual) Abs Lymphs (Manual) Abs Monocytes (Manual) Absolute Eos (Manual) Abs Basophils (Manual) Platelet Comment Polychromasia Anisocytosis Ovalocytes VBG pH VBG pCO2 VBG HCO3 VBG Base Excess Sodium 134.2 L Potassium 4.2 Chloride 102 Carbon Dioxide 23 Anion Gap 9 BUN 30 H Creatinine 1.62 H Est GFR ( Amer) 53 L Est GFR (MDRD) Non-Af 44 L Glucose 249 H POC Glucose Hemoglobin A1c % 10.0 H Lactic Acid Calcium 7.9 L Phosphorus 2.5 Magnesium 1.7 Total Bilirubin 1.2 Direct Bilirubin 0.7 H Neonat Total Bilirubin Not Reportable Neonat Direct Bilirubin Not Reportable Neonat Indirect Bili Not Reportable AST 43 ALT 20 Alkaline Phosphatase 38 Creatine Kinase CK-MB (CK-2) Troponin I Total Protein 6.2 L Albumin 2.9 L TSH Free T4 Free T3 pg/mL Time Trough Drawn Vancomycin Trough 07/02/19 07/02/19 07/02/19 06:24 08:32 11:34 WBC RBC Hgb Hct MCV MCH MCHC RDW Plt Count Lymph % (Auto) [place] % (Auto) Eos % (Auto) Baso % (Auto) Absolute Neuts (auto) Absolute Lymphs (auto) Absolute Monos (auto) Absolute Eos (auto) Absolute Basos (auto) Total Counted Seg Neutrophils % Seg Neuts % (Manual) Band Neutrophils % Lymphocytes % (Manual) Atypical Lymphs % Monocytes % (Manual) Eosinophils % (Manual) Basophils % (Manual) Metamyelocytes % Abs Neuts (Manual) Abs Lymphs (Manual) Abs Monocytes (Manual) Absolute Eos (Manual) Abs Basophils (Manual) Platelet Comment Polychromasia Anisocytosis Ovalocytes VBG pH VBG pCO2 VBG HCO3 VBG Base Excess Sodium Potassium Chloride Carbon Dioxide Anion Gap BUN Creatinine Est GFR ( Amer) Est GFR (MDRD) Non-Af Glucose POC Glucose 234 H 256 H 271 H Hemoglobin A1c % Lactic Acid Calcium Phosphorus Magnesium Total Bilirubin Direct Bilirubin Neonat Total Bilirubin Neonat Direct Bilirubin Neonat Indirect Bili AST ALT Alkaline Phosphatase Creatine Kinase CK-MB (CK-2) Troponin I Total Protein Albumin TSH Free T4 Free T3 pg/mL Time Trough Drawn Vancomycin Trough 07/02/19 07/02/19 07/02/19 16:19 21:25 21:27 WBC RBC Hgb Hct MCV MCH MCHC RDW Plt Count Lymph % (Auto) [place] % (Auto) Eos % (Auto) Baso % (Auto) Absolute Neuts (auto) Absolute Lymphs (auto) Absolute Monos (auto) Absolute Eos (auto) Absolute Basos (auto) Total Counted Seg Neutrophils % Seg Neuts % (Manual) Band Neutrophils % Lymphocytes % (Manual) Atypical Lymphs % Monocytes % (Manual) Eosinophils % (Manual) Basophils % (Manual) Metamyelocytes % Abs Neuts (Manual) Abs Lymphs (Manual) Abs Monocytes (Manual) Absolute Eos (Manual) Abs Basophils (Manual) Platelet Comment Polychromasia Anisocytosis Ovalocytes VBG pH VBG pCO2 VBG HCO3 VBG Base Excess Sodium Potassium Chloride Carbon Dioxide Anion Gap BUN Creatinine Est GFR ( Amer) Est GFR (MDRD) Non-Af Glucose POC Glucose 279 H 304 H Hemoglobin A1c % Lactic Acid Calcium Phosphorus Magnesium Total Bilirubin Direct Bilirubin Neonat Total Bilirubin Neonat Direct Bilirubin Neonat Indirect Bili AST ALT Alkaline Phosphatase Creatine Kinase CK-MB (CK-2) Troponin I Total Protein Albumin TSH Free T4 Free T3 pg/mL Time Trough Drawn 2125 Vancomycin Trough 15.6 07/03/19 07/03/19 07/03/19 04:09 04:09 06:14 WBC 7.2 RBC 3.22 L Hgb 9.0 L Hct 26.8 L MCV 83 MCH 27.9 MCHC 33.6 RDW 15.8 H Plt Count 200 Lymph % (Auto) 14.6 [place] % (Auto) 11.3 Eos % (Auto) 1.4 Baso % (Auto) 0.7 Absolute Neuts (auto) 5.2 Absolute Lymphs (auto) 1.0 Absolute Monos (auto) 0.8 Absolute Eos (auto) 0.1 Absolute Basos (auto) 0.1 Total Counted Seg Neutrophils % 72.0 Seg Neuts % (Manual) Band Neutrophils % Lymphocytes % (Manual) Atypical Lymphs % Monocytes % (Manual) Eosinophils % (Manual) Basophils % (Manual) Metamyelocytes % Abs Neuts (Manual) Abs Lymphs (Manual) Abs Monocytes (Manual) Absolute Eos (Manual) Abs Basophils (Manual) Platelet Comment Polychromasia Anisocytosis Ovalocytes VBG pH VBG pCO2 VBG HCO3 VBG Base Excess Sodium 134.3 L Potassium 4.1 Chloride 101 Carbon Dioxide 25 Anion Gap 8 BUN 30 H Creatinine 1.52 H Est GFR ( Amer) 57 L Est GFR (MDRD) Non-Af 47 L Glucose 247 H POC Glucose 261 H Hemoglobin A1c % Lactic Acid Calcium 8.2 L Phosphorus 2.5 Magnesium 1.8 Total Bilirubin Direct Bilirubin Neonat Total Bilirubin Neonat Direct Bilirubin Neonat Indirect Bili AST ALT Alkaline Phosphatase Creatine Kinase CK-MB (CK-2) Troponin I Total Protein Albumin TSH Free T4 Free T3 pg/mL Time Trough Drawn Vancomycin Trough 07/03/19 07/03/19 07/03/19 10:59 16:30 21:18 WBC RBC Hgb Hct MCV MCH MCHC RDW Plt Count Lymph % (Auto) [place] % (Auto) Eos % (Auto) Baso % (Auto) Absolute Neuts (auto) Absolute Lymphs (auto) Absolute Monos (auto) Absolute Eos (auto) Absolute Basos (auto) Total Counted Seg Neutrophils % Seg Neuts % (Manual) Band Neutrophils % Lymphocytes % (Manual) Atypical Lymphs % Monocytes % (Manual) Eosinophils % (Manual) Basophils % (Manual) Metamyelocytes % Abs Neuts (Manual) Abs Lymphs (Manual) Abs Monocytes (Manual) Absolute Eos (Manual) Abs Basophils (Manual) Platelet Comment Polychromasia Anisocytosis Ovalocytes VBG pH VBG pCO2 VBG HCO3 VBG Base Excess Sodium Potassium Chloride Carbon Dioxide Anion Gap BUN Creatinine Est GFR ( Amer) Est GFR (MDRD) Non-Af Glucose POC Glucose 290 H 280 H 224 H Hemoglobin A1c % Lactic Acid Calcium Phosphorus Magnesium Total Bilirubin Direct Bilirubin Neonat Total Bilirubin Neonat Direct Bilirubin Neonat Indirect Bili AST ALT Alkaline Phosphatase Creatine Kinase CK-MB (CK-2) Troponin I Total Protein Albumin TSH Free T4 Free T3 pg/mL Time Trough Drawn Vancomycin Trough 07/04/19 07/04/19 07/04/19 05:45 05:45 06:05 WBC 8.5 RBC 3.33 L Hgb 9.2 L Hct 27.7 L MCV 83 MCH 27.7 MCHC 33.3 RDW 15.8 H Plt Count 249 Lymph % (Auto) Not Reportable [place] % (Auto) Not Reportable Eos % (Auto) Not Reportable Baso % (Auto) Not Reportable Absolute Neuts (auto) Not Reportable Absolute Lymphs (auto) Not Reportable Absolute Monos (auto) Not Reportable Absolute Eos (auto) Not Reportable Absolute Basos (auto) Not Reportable Total Counted 100 Seg Neutrophils % Not Reportable Seg Neuts % (Manual) 69 Band Neutrophils % 2 L Lymphocytes % (Manual) 16 Atypical Lymphs % 3 Monocytes % (Manual) 4 Eosinophils % (Manual) 5 Basophils % (Manual) 0 Metamyelocytes % 1 H Abs Neuts (Manual) 6.1 Abs Lymphs (Manual) 1.6 Abs Monocytes (Manual) 0.3 Absolute Eos (Manual) 0.4 Abs Basophils (Manual) 0.0 Platelet Comment ADEQUATE Polychromasia Anisocytosis SLIGHT Ovalocytes VBG pH VBG pCO2 VBG HCO3 VBG Base Excess Sodium 137.0 Potassium 3.9 Chloride 100 Carbon Dioxide 27 Anion Gap 10 BUN 30 H Creatinine 1.52 H Est GFR ( Amer) 57 L Est GFR (MDRD) Non-Af 47 L Glucose 190 H POC Glucose 195 H Hemoglobin A1c % Lactic Acid Calcium 8.4 Phosphorus Magnesium 1.7 Total Bilirubin 1.5 H Direct Bilirubin 0.9 H Neonat Total Bilirubin Not Reportable Neonat Direct Bilirubin Not Reportable Neonat Indirect Bili Not Reportable AST 206 H ALT 118 Alkaline Phosphatase 48 Creatine Kinase CK-MB (CK-2) Troponin I Total Protein 6.3 Albumin 3.0 L TSH Free T4 Free T3 pg/mL Time Trough Drawn Vancomycin Trough 07/04/19 07/04/19 07/04/19 12:03 16:40 21:21 WBC RBC Hgb Hct MCV MCH MCHC RDW Plt Count Lymph % (Auto) [place] % (Auto) Eos % (Auto) Baso % (Auto) Absolute Neuts (auto) Absolute Lymphs (auto) Absolute Monos (auto) Absolute Eos (auto) Absolute Basos (auto) Total Counted Seg Neutrophils % Seg Neuts % (Manual) Band Neutrophils % Lymphocytes % (Manual) Atypical Lymphs % Monocytes % (Manual) Eosinophils % (Manual) Basophils % (Manual) Metamyelocytes % Abs Neuts (Manual) Abs Lymphs (Manual) Abs Monocytes (Manual) Absolute Eos (Manual) Abs Basophils (Manual) Platelet Comment Polychromasia Anisocytosis Ovalocytes VBG pH VBG pCO2 VBG HCO3 VBG Base Excess Sodium Potassium Chloride Carbon Dioxide Anion Gap BUN Creatinine Est GFR ( Amer) Est GFR (MDRD) Non-Af Glucose POC Glucose 254 H 242 H 291 H Hemoglobin A1c % Lactic Acid Calcium Phosphorus Magnesium Total Bilirubin Direct Bilirubin Neonat Total Bilirubin Neonat Direct Bilirubin Neonat Indirect Bili AST ALT Alkaline Phosphatase Creatine Kinase CK-MB (CK-2) Troponin I Total Protein Albumin TSH Free T4 Free T3 pg/mL Time Trough Drawn Vancomycin Trough 07/05/19 07/05/19 07/05/19 05:30 05:30 06:50 WBC 9.2 RBC 3.62 L Hgb 10.0 L Hct 30.4 L MCV 84 MCH 27.6 MCHC 32.8 RDW 16.3 H Plt Count 295 Lymph % (Auto) Not Reportable [place] % (Auto) Not Reportable Eos % (Auto) Not Reportable Baso % (Auto) Not Reportable Absolute Neuts (auto) Not Reportable Absolute Lymphs (auto) Not Reportable Absolute Monos (auto) Not Reportable Absolute Eos (auto) Not Reportable Absolute Basos (auto) Not Reportable Total Counted 100 Seg Neutrophils % Not Reportable Seg Neuts % (Manual) 78 Band Neutrophils % 1 L Lymphocytes % (Manual) 12 L Atypical Lymphs % Monocytes % (Manual) 6 Eosinophils % (Manual) 3 Basophils % (Manual) 0 Metamyelocytes % Abs Neuts (Manual) 7.3 Abs Lymphs (Manual) 1.1 Abs Monocytes (Manual) 0.6 Absolute Eos (Manual) 0.3 Abs Basophils (Manual) 0.0 Platelet Comment ADEQUATE Polychromasia Anisocytosis 1+ Ovalocytes VBG pH VBG pCO2 VBG HCO3 VBG Base Excess Sodium 137.3 Potassium 4.0 Chloride 99 Carbon Dioxide 28 Anion Gap 10 BUN 30 H Creatinine 1.54 H Est GFR ( Amer) 56 L Est GFR (MDRD) Non-Af 46 L Glucose 214 H POC Glucose 217 H Hemoglobin A1c % Lactic Acid Calcium 8.7 Phosphorus Magnesium 1.7 Total Bilirubin 1.2 Direct Bilirubin 0.6 H Neonat Total Bilirubin Not Reportable Neonat Direct Bilirubin Not Reportable Neonat Indirect Bili Not Reportable AST 128 H ALT 110 Alkaline Phosphatase 50 Creatine Kinase CK-MB (CK-2) Troponin I Total Protein 6.8 Albumin 3.2 L TSH Free T4 Free T3 pg/mL Time Trough Drawn Vancomycin Trough 07/05/19 07/05/19 07/05/19 08:14 08:14 08:14 WBC RBC Hgb Hct MCV MCH MCHC RDW Plt Count Lymph % (Auto) [place] % (Auto) Eos % (Auto) Baso % (Auto) Absolute Neuts (auto) Absolute Lymphs (auto) Absolute Monos (auto) Absolute Eos (auto) Absolute Basos (auto) Total Counted Seg Neutrophils % Seg Neuts % (Manual) Band Neutrophils % Lymphocytes % (Manual) Atypical Lymphs % Monocytes % (Manual) Eosinophils % (Manual) Basophils % (Manual) Metamyelocytes % Abs Neuts (Manual) Abs Lymphs (Manual) Abs Monocytes (Manual) Absolute Eos (Manual) Abs Basophils (Manual) Platelet Comment Polychromasia Anisocytosis Ovalocytes VBG pH VBG pCO2 VBG HCO3 VBG Base Excess Sodium Potassium Chloride Carbon Dioxide Anion Gap BUN Creatinine Est GFR ( Amer) Est GFR (MDRD) Non-Af Glucose POC Glucose Hemoglobin A1c % Lactic Acid Calcium Phosphorus Magnesium Total Bilirubin Direct Bilirubin Neonat Total Bilirubin Neonat Direct Bilirubin Neonat Indirect Bili AST ALT Alkaline Phosphatase Creatine Kinase 64 CK-MB (CK-2) 0.89 Troponin I 0.016 Total Protein Albumin TSH 3.16 Free T4 2.44 H Free T3 pg/mL 3.11 Time Trough Drawn Vancomycin Trough 07/05/19 07/05/19 07/05/19 08:25 10:36 16:16 WBC RBC Hgb Hct MCV MCH MCHC RDW Plt Count Lymph % (Auto) [place] % (Auto) Eos % (Auto) Baso % (Auto) Absolute Neuts (auto) Absolute Lymphs (auto) Absolute Monos (auto) Absolute Eos (auto) Absolute Basos (auto) Total Counted Seg Neutrophils % Seg Neuts % (Manual) Band Neutrophils % Lymphocytes % (Manual) Atypical Lymphs % Monocytes % (Manual) Eosinophils % (Manual) Basophils % (Manual) Metamyelocytes % Abs Neuts (Manual) Abs Lymphs (Manual) Abs Monocytes (Manual) Absolute Eos (Manual) Abs Basophils (Manual) Platelet Comment Polychromasia Anisocytosis Ovalocytes VBG pH VBG pCO2 VBG HCO3 VBG Base Excess Sodium Potassium Chloride Carbon Dioxide Anion Gap BUN Creatinine Est GFR ( Amer) Est GFR (MDRD) Non-Af Glucose POC Glucose 241 H 257 H 209 H Hemoglobin A1c % Lactic Acid Calcium Phosphorus Magnesium Total Bilirubin Direct Bilirubin Neonat Total Bilirubin Neonat Direct Bilirubin Neonat Indirect Bili AST ALT Alkaline Phosphatase Creatine Kinase CK-MB (CK-2) Troponin I Total Protein Albumin TSH Free T4 Free T3 pg/mL Time Trough Drawn Vancomycin Trough 07/05/19 21:13 WBC RBC Hgb Hct MCV MCH MCHC RDW Plt Count Lymph % (Auto) [place] % (Auto) Eos % (Auto) Baso % (Auto) Absolute Neuts (auto) Absolute Lymphs (auto) Absolute Monos (auto) Absolute Eos (auto) Absolute Basos (auto) Total Counted Seg Neutrophils % Seg Neuts % (Manual) Band Neutrophils % Lymphocytes % (Manual) Atypical Lymphs % Monocytes % (Manual) Eosinophils % (Manual) Basophils % (Manual) Metamyelocytes % Abs Neuts (Manual) Abs Lymphs (Manual) Abs Monocytes (Manual) Absolute Eos (Manual) Abs Basophils (Manual) Platelet Comment Polychromasia Anisocytosis Ovalocytes VBG pH VBG pCO2 VBG HCO3 VBG Base Excess Sodium Potassium Chloride Carbon Dioxide Anion Gap BUN Creatinine Est GFR ( Amer) Est GFR (MDRD) Non-Af Glucose POC Glucose 206 H Hemoglobin A1c % Lactic Acid Calcium Phosphorus Magnesium Total Bilirubin Direct Bilirubin Neonat Total Bilirubin Neonat Direct Bilirubin Neonat Indirect Bili AST ALT Alkaline Phosphatase Creatine Kinase CK-MB (CK-2) Troponin I Total Protein Albumin TSH Free T4 Free T3 pg/mL Time Trough Drawn Vancomycin Trough Foot X-Ray 06/30/19 12:24 IMPRESSION: 1. Soft tissue swelling and subcutaneous emphysema centered around the 1st and 2nd toes. There is no osseous erosion or widening of the 1st MTP joint space to suggest an acute osteomyelitis. If clinical concern persists correlation with MRI is recommended. 2. Nonspecific thickening of the Achilles tendon silhouette - correlate with clinical findings to exclude at tendinosis/tear, gouty infiltration, rheumatoid arthritis or retrocalcaneal bursitis. Lower Extremity MRI 07/01/19 00:00 IMPRESSION: 1. Cellulitis and evidence of superficial ulceration. No gross abscess. No evidence of osteomyelitis. Chest/Abdomen CTA 07/05/19 00:00 IMPRESSION: 1. NORMAL CTA OF THE CHEST. NO PULMONARY EMBOLI. 2. CARDIOMEGALY WITH PLEURAL EFFUSIONS. HAZY GROUND-GLASS OPACITIES PROBABLY DUE TO EARLY PULMONARY EDEMA. . SINUS bradycardia [VBIG] . VENTRICULAR BIGEMINY [NIVCD] . NONSPECIFIC INTRAVENTRICULAR CONDUCTION DELAY. IMPRESSION/RECOMMENDATION: 1. Mild congestive heart failure: The patient is already been restarted on his oral Lasix twice daily. Will give 1 dose of Lasix 20 mg IV push. 2. Dilated cardiomyopathy with severely reduced LV ejection fraction. Note that the patient is allergic to ARB's. For some reason he is not on JER inhibitors. Will discuss and start the patient on JER inhibitor if no significant problems with it in the past. The patient has refused AICD placement in the past in [place]. Will discuss with his cable maker in [place], tomorrow. 3. Status post debridement of left diabetic foot ulcer. 4. Paroxysmal atrial fibrillation: We will recommend restarting the patient's Xarelto, and increasing Coreg to his prior dose. 5. 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 6. Hypertension: Well controlled. 7. Chronic kidney disease stage: Stage III. Medications reviewed. Medications added. Management plan and medical regimen discussed with the hospitalist attending physician Dr. Salcedo. Medical decision making is of high complexity. 60 minutes spent on this patient more than 50% of time spent in direct patient care. Will follow.
[2019-07-05] MEDS: ZOLPIDEM TARTRATE 5 MG TABLET PO SCH (22:30)
[2019-07-05] MEDS: INSULIN GLARGINE,HUM.REC.ANLOG 1,000 UNIT/10 ML VIAL SUBCUT SCH (22:31)
[2019-07-06] MEDS: PIPERACILLIN SODIUM/TAZOBACTAM 3.375 GM in NORMAL SALINE 100 ML IV SCH ×4 (03:55→23:02)
[2019-07-06 05:26] LABS: HEMATOCRIT 28.9 % (37.9-51.0); HEMOGLOBIN 9.7 g/dL (13.5-17.0); MEAN CORPUSCULAR HGB CONC 33.7 g/dL (32.0-36.0); MEAN CORPUSCULAR VOLUME 83 fl (80-97); PLATELET COUNT 325 10^3/uL (150-450); RED BLOOD COUNT 3.47 10^6/uL (4.35-5.55); RED CELL DISTRIBUTION WIDTH 16.3 % (11.5-14.0); WHITE BLOOD COUNT 7.9 10^3/uL (4.0-10.5)
[2019-07-06 05:46] LABS: ALBUMIN 3.2 g/dL (3.5-5.0); ALKALINE PHOSPHATASE 47 U/L (38-126); ANION GAP 10 (5-19); ASPARTATE AMINO TRANSFERASE 68 U/L (17-59); BILIRUBIN,DIRECT 0.6 mg/dL (0.0-0.4); BILIRUBIN,TOTAL 1.1 mg/dL (0.2-1.3); BLOOD UREA NITROGEN 26 mg/dL (7-20); CALCIUM 8.6 mg/dL (8.4-10.2); CARBON DIOXIDE 29 mmol/L (22-30); CHLORIDE 98 mmol/L (98-107); GLUCOSE 194 mg/dL (75-110); POTASSIUM 3.8 mmol/L (3.6-5.0); TOTAL PROTEIN 6.6 g/dL (6.3-8.2)
[2019-07-06 07:12] LABS: ABSOLUTE LYMPHOCYTES# (MANUAL) 0.9 10^3/uL (0.5-4.7); ABSOLUTE MONOCYTES # (MANUAL) 0.3 10^3/uL (0.1-1.4); BAND NEUTROPHILS % (MANUAL) 5 % (3-5); BASOPHILS % (MANUAL) 1 % (0-2); EOSINOPHILS % (MANUAL) 6 % (0-6); LYMPHOCYTES % (MANUAL) 11 % (13-45); MONOCYTES % (MANUAL) 4 % (3-13); SEGMENTED NEUTROPHILS % (MAN) 73 % (42-78); TOTAL CELLS COUNTED 100
[2019-07-06 07:13] LABS: ANISOCYTOSIS 1+; PLATELET COMMENT ADEQUATE
[2019-07-06] MEDS: INSULIN REG, HUMAN 100 UNIT/ML 3 ML VIAL (PYX) SUBCUT SCH ×4 (07:59→23:04)
--- NOTE | 2019-07-06 10:18 | PDOC PROGRESS REPORT ---
Subjective Progress Note for:: 07/06/19 Subjective:: 58 year old male who presents with left foot pain. Patient has known history diabetes and gets frequent ingrown toenails. Patient this was last he had an ingrown was removed and that is just diabetic foot ulcer popped up overnight. He denied any other symptoms but complains of pain that is mild to moderate in nature. He does have serosanguineous drainage from in between the great toe and second toe that is a foul smell. No other associated symptoms. No treatment prior to arrival all active is been aggravating factor. 07/01/[id number]-gtjj-old male with history of type 2 diabetes mellitus, history of ingrown pain is last week ingrown toenail was removed and foot ulcer popped up overnight. Associated with the serosanguineous drainage between the great toe and second toe. With foul-smelling. Ortho consult was done this morning patient wants to keep the toes so he is going for surgical debridement. Left foot x-ray did not suggestive of an osteomyelitis but I am planning to go ahead and do the MRI of the left lower extremity without contrast because creatinine is 1.88. No acute events since admission. Afebrile. 07/02/[id number]-jeor-old male with history of type 2 diabetes mellitus admitted with left foot cellulitis with gangrene. Went for the surgical procedure with the debridement of the wound removal of the necrotic skin deep fascia. Not including the bone. Patient is sleepy and groggy. No complaints. 07/03/[id number]-nxlq-old male with history of type 2 diabetes mellitus admitted with left toe cellulitis and gangrene status post debridement was done yesterday. Blood cultures came back positive for gram-negative rods. He is getting vancomycin and Zosyn. Afebrile. No acute events in the last 24 hours. Plan is to continue the present management. 07/04/2019-no acute events in the last 24 hours. Afebrile. As per the orthopedic team patient need a long-term IV antibiotic therapy. Wound cultures are positive for group B and group f streptococcus. On IV vancomycin and Zosyn. Plan is to continue the present management. 07/05/2019-nurses called me this morning around 8:00 to notify that patient is not feeling wet well ,he is pale looking and also patient is complaining of feeling the skipped beats. Went to examine the patient reassured the patient we did a stat EKG found to have heart rate of 54 and sinus rhythm with occasional PVCs. CT of the chest was done negative for PE. Restarted Xarelto. Discussed with Dr. Gonzalez he recommended to do the TSH and T3-T4 which came back negative. And recheck his magnesium level which was 1.7 to give p.o. magnesium. 07/06/2019-patient is comfortable in the chair communicating well. He is requesting to go to [place] by car with antibiotic therapy. I talked to him in detail that we need orthopedic team opinion about IV/p.o. antibiotic therapy if the recommendation is IV antibiotics he may have to have a PICC line. And I am going to put a consult for infectious disease for recommendations of IV antibiotic therapy as an outpatient. Patient advocate was consulted to address the grievances expressed by the family. Reason For Visit: DIABETIC FOOT ULCER Physical Exam Vital Signs: Temp Pulse Resp BP Pulse Ox 98.3 F 53 L 18 134/80 H 99 07/06/19 07:43 07/06/19 07:43 07/06/19 07:43 07/06/19 07:43 07/06/19 07:43 Intake & Output 07/05/19 07/06/19 07/07/19 06:59 06:59 06:59 Intake Total 2150 1360 Output Total 2250 2250 Balance -100 -890 Weight 116.7 kg 117.3 kg General appearance: PRESENT: no acute distress, morbidly obese Head exam: PRESENT: atraumatic Eye exam: PRESENT: PERRLA Ear exam: PRESENT: normal external ear exam Mouth exam: PRESENT: neck supple Teeth exam: PRESENT: poor dentation Neck exam: ABSENT: carotid bruit, JVD, lymphadenopathy, thyromegaly Respiratory exam: PRESENT: decreased breath sounds Cardiovascular exam: PRESENT: RRR. ABSENT: diastolic murmur, rubs, systolic murmur GI/Abdominal exam: PRESENT: normal bowel sounds, soft. ABSENT: distended, guarding, mass, organolmegaly, rebound, tenderness Rectal exam: PRESENT: deferred Extremities exam: PRESENT: full ROM, other - Left foot wrapped in dressing. Unable to see the wound.. ABSENT: calf tenderness, clubbing, pedal edema Neurological exam: PRESENT: alert, awake, oriented to person, oriented to place, oriented to time, oriented to situation, CN II-XII grossly intact. ABSENT: motor sensory deficit Psychiatric exam: PRESENT: appropriate affect, normal mood. ABSENT: homicidal ideation, suicidal ideation Results Laboratory Results: 07/06/19 04:33 07/06/19 04:33 07/06/19 07/06/19 04:33 04:33 WBC 7.9 RBC 3.47 L Hgb 9.7 L Hct 28.9 L MCV 83 MCH 28.0 MCHC 33.7 RDW 16.3 H Plt Count 325 Seg Neutrophils % Not Reportable Sodium 137.0 Potassium 3.8 Chloride 98 Carbon Dioxide 29 Anion Gap 10 BUN 26 H Creatinine 1.51 H Est GFR ( Amer) 58 L Glucose 194 H Calcium 8.6 Magnesium 1.8 Total Bilirubin 1.1 AST 68 H Alkaline Phosphatase 47 Total Protein 6.6 Albumin 3.2 L 07/05/19 07/05/19 08:14 08:14 Creatine Kinase 64 CK-MB (CK-2) 0.89 Troponin I 0.016 Impressions: Foot X-Ray 06/30/19 12:24 IMPRESSION: 1. Soft tissue swelling and subcutaneous emphysema centered around the 1st and 2nd toes. There is no osseous erosion or widening of the 1st MTP joint space to suggest an acute osteomyelitis. If clinical concern persists correlation with MRI is recommended. 2. Nonspecific thickening of the Achilles tendon silhouette - correlate with clinical findings to exclude at tendinosis/tear, gouty infiltration, rheumatoid arthritis or retrocalcaneal bursitis. Lower Extremity MRI 07/01/19 00:00 IMPRESSION: 1. Cellulitis and evidence of superficial ulceration. No gross abscess. No evidence of osteomyelitis. Chest/Abdomen CTA 07/05/19 00:00 IMPRESSION: 1. NORMAL CTA OF THE CHEST. NO PULMONARY EMBOLI. 2. CARDIOMEGALY WITH PLEURAL EFFUSIONS. HAZY GROUND-GLASS OPACITIES PROBABLY DUE TO EARLY PULMONARY EDEMA. Assessment and Plan - Diagnosis (1) Diabetic ulcer of left foot Qualifiers: Diabetic foot ulcer location: toe Diabetes mellitus type: type 2 Is this a current diagnosis for this admission?: Yes (2) Acute renal failure Is this a current diagnosis for this admission?: Yes (3) Type 2 diabetes mellitus Is this a current diagnosis for this admission?: Yes (4) Lactic acidosis Is this a current diagnosis for this admission?: Yes (5) Hyponatremia Is this a current diagnosis for this admission?: Yes (7) Atrial fibrillation Is this a current diagnosis for this admission?: No - Plan Summary Summary: (1) Diabetic ulcer of left foot Qualifiers: Diabetic foot ulcer location: toe Diabetes mellitus type: type 2 Is this a current diagnosis for this admission?: Yes Plan: 06/30/2019-admit to medical surgical. Vancomycin and Zosyn per pharmacy dosing. Blood cultures and wound culture will be obtained. I have consulted Dr. Alvares in consultation for possible surgical I/D. Patient will be made n.p.o. after midnight for possible intervention in a.m. Will give patient Dilaudid 1 mg IV every 3 hours PRN for pain or Percocet 5/325 mg 1 p.o. every 4 hours as needed pain. We will also perform Dakin's solution soaks twice a day. 07/01/[id number]-shoe-old male with history of type 2 diabetes mellitus admitted with left foot diabetic ulcer with possible abscess. Going for surgical debridement today. Presently on vancomycin and Zosyn. Cultures are pending so far. Plan to do the MRI of the left foot today to see if there is any osteomyelitis. Patient receiving Percocet 5 through 25 mg every 4 PRN for pain. He is also receiving IV Dilaudid every 3 hours as needed. 07/02/2019-patient came in with left foot wound MRI of the left foot came back negative for osteomyelitis. Status post surgery today with the debridement of the wound removal of the necrotic tissue including the skin and deep fascia. Cultures came back positive for group B streptococcus and group F streptococcus. Continue vancomycin and Zosyn. 07/03/2019-patient admitted with left foot diabetic ulcer, MRI of the left foot was negative for osteomyelitis, status post debridement was done yesterday. Wound cultures are positive for group F beta Streptococcus and group B Streptococcus. Blood cultures came back positive for gram-negative rods. Presently on IV vancomycin and Zosyn. Plan is to continue the present management. Physical therapy consult will be requested for ambulation. 07/04/2019-patient admitted with diabetic left foot ulcer status post debridement. Wound cultures came back positive for group B and group F streptococcus present on IV vancomycin and Zosyn orthopedic team is on board. Per the orthopedic team patient may need a long-term antibiotic therapy. But the patient prefers to go to [place] next week and follow-up with his primary care physician. 07/05/2019-patient admitted with diabetic left foot ulcer status post debridement wound cultures came back positive for group B and group F Streptococcus. Presently on IV vancomycin and Zosyn. Orthopedic team on board. Plan is to continue the present management. 07/06/2019-patient admitted with diabetic foot ulcer status post debridement. Wound cultures came back positive for group B and group C streptococcus, blood cultures are positive for group B and group C streptococcus. Presently on van comycin and Zosyn. Orthopedic follow-up is requested for further recommendations and ID consult will be requested. (2) Type 2 diabetes mellitus Is this a current diagnosis for this admission?: Yes Plan: 06/30/2019-patient's blood sugar to 400 range at this time. We want to decrease that for possible surgical intervention in a.m. I will do a sliding scale insulin every 2 hours at this time to have patient's blood sugar down to an acceptable range at which time we will switch over to every 6 hours. Patient will be n.p.o. after midnight for surgical intervention. After which we will place him on a diet and continue home medications. I will also give patient 10 units of Lantus at bedtime. 07/01/2019-patient has history of type 2 diabetes mellitus latest blood sugar is 182. Plan to check his hemoglobin A1c and continue to do insulin sliding scale every 6 hours. He is also on Lantus 10 units at bedtime. Diet exercise weight loss lifestyle modifications are discussed with the patient dietary consult will be requested. 07/02/2019-patient sugar is 271 today, hemoglobin A1c 10. Presently on insulin sliding scale every 6 hours on Lantus 10 units at bedtime. Plan to continue the present management adjust medications tomorrow. 07/03/2019-patient's latest blood sugar is 265, hemoglobin A1c is 10 presently on Lantus 10 units twice a day and insulin sliding scale plan is to increase the dose to 15 units of Lantus twice a day and continue with insulin sliding scale before meals and at bedtime. 01/2019-patient blood test blood sugar is 195. Hemoglobin A1c is 10. On Lantus 15 units twice a day and also insulin sliding scale before meals and at bedtime. Plan is to continue to closely monitor the blood sugar levels. 07/05/2019-patient's latest blood sugar is 257, hemoglobin A1c is 10 presently on Lantus 15 units twice a day and insulin sliding scale before meals and at bedtime. Plan is to increase the Lantus to 20 twice a day. 07/06/2019-patient blood sugar today is 196. Presently on Lantus 20 units twice a day and insulin sliding scale before meals and at bedtime. Hemoglobin A1c is 10. Dietary education was provided during the hospital stay. (3) Acute renal failure Is this a current diagnosis for this admission?: Yes Plan: 06/30/2019-patient's creatinine 2.34 at this time. No previous labs to compare to some of some this is an acute renal failure. Patient has been given 3 L of normal saline in the ER will continue normal saline at 125 mL/h. I will repeat BMP in the a.m. 07/01/2019-patient's serum creatinine today is 1.88 admission creatinine is 2.34. Patient is receiving normal saline at 125 cc/h acute kidney injury is resolving. Kidney injury most likely secondary to prerenal causes and uncontrolled diabetes mellitus. 07/02/2019-patient's admission creatinine is 2.34 today it is 1.6. Acute kidney injury most likely secondary to prerenal causes resolving. 07/03/2019-patient serum creatinine today is 1.5 continue to show improvement. Do not have the baseline creatinine. 07/04/2019-patient's creatinine today is 1.52 stable. as per the patient request presently on Lasix 40 mg p.o. twice daily. 07/05/2019-patient serum creatinine is 1.55 today stable. On Lasix 40 mg p.o. twice daily for congestive heart failure plan is to continue the present management. 07/06/2019-patient creatinine is 1.51 stable. He is receiving Lasix 40mg p.o. twice a day. (4) Lactic acidosis Is this a current diagnosis for this admission?: Yes Plan: 06/30/2019-patient has a elevated lactic acid at this time however I do not suspect that this is sepsis in nature. Patient is getting 3 L normal saline plus I will run saline at 125 mL an hour I will repeat a lactic acid at 7 PM. 07/01/2019-patient admitted with elevated lactic acid levels latest lactic acid level is 1.8. Lactic acidosis is resolving. Hyponatremia, patient came in with serum sodium of 131.1. Today's serum sodium is 132.6. He is receiving normal saline at 125 cc/h. Hyponatremia most likely secondary to uncontrolled diabetes mellitus. Plan is closely monitor his serum sodium levels. 07/02/2019-patient serum sodium is 134.6 hyponatremia is resolving. Presently on normal saline 125 cc/h. To repeat the labs tomorrow. 07/03/2019-patient serum sodium is 134, blood sugar is 261 corrected serum sodium probably around 136. Patient is presently off the IV fluids. 07/04/2019-patient serum sodium is 137 hyponatremia due to uncontrolled diabetes mellitus resolved. 02/2019-patient serum sodium is 137 hyponatremia is resolved. 07/06/2019-patient serum sodium is 137 stable. Hyponatremia is resolved. Obesity patient's BMI is more than 32 diet exercise weight loss lifestyle modifications are discussed with the patient. 5.congestive heart failure Patient is given the history of congestive heart failure most likely chronic systolic heart failure. Euvolemic. We are watching for the fluid overload. 07/04/2019-patient has history of chronic distolic heart failure as per his request 40 mg of IV Lasix 1 dose was given. To increase the dose to Lasix 40 twice daily from today. To watch for the fluid overload. He is going to be placed on fluid restriction 1500 cc/day. 06/06/2019-patient has chronic diastolic heart failure on Lasix 40 mg p.o. twice daily. Patient euvolemic. Cardiology consult was done during the hospital stay. 6.atrial fibrillation Given the history of chronic atrial fibrillation on Xarelto 20 mg daily. Medication was resumed today. CT of the chest was done this morning which was negative for PE.
[2019-07-06] MEDS: SODIUM HYPOCHLORITE 0.25% SOLN 473 ML BOTTLE TP SCH ×2 (10:51→18:08)
[2019-07-06] MEDS: VANCOMYCIN HCL 1,000 MG in DEXTROSE 5%-WATER 250 ML IV SCH ×2 (11:01→23:14)
[2019-07-06] MEDS: PANTOPRAZOLE SODIUM 40 MG TABLET.DR PO SCH (11:11)
[2019-07-06] MEDS: ISOSORBIDE MONONITRATE 30 MG TAB.ER.24H PO SCH (11:11)
[2019-07-06] MEDS: FUROSEMIDE 40 MG TABLET PO SCH ×2 (11:12→17:46)
[2019-07-06] MEDS: MAGNESIUM OXIDE 400 MG TABLET PO SCH ×2 (11:12→17:46)
[2019-07-06] MEDS: FENOFIBRATE NANOCRYSTALLIZED 145 MG TABLET PO SCH (11:13)
[2019-07-06] MEDS: RIVAROXABAN 10 MG TABLET PO SCH (12:12)
--- NOTE | 2019-07-06 22:55 | Progress Note ---
Provider Note Provider Note: CARDIOLOGY PROGRESS NOTE by Dr. Katie Gonzalez on . SUBJECTIVE: The patient has no further shortness of breath. There is no PND or orthopnea. The heart rate is in the 60s. He denies any chest pain or discomfort. There is no leg edema. His pain in the debrided left foot is controlled with medication. There is no arrhythmia seen on the monitor. PHYSICAL EXAMINATION: The patient is mildly obese. In no acute distress. Selected Entries 07/06/19 07/06/19 15:34 15:56 Temperature 97.4 F Temperature Oral Source Pulse Rate 61 Respiratory 16 Rate Blood Pressure 118/57 L Blood Pressure 77 Mean BP Location Right Arm BP Position Supine O2 Sat by Pulse 97 Oximetry Fraction of 21 Inspired Oxygen (FIO2) Oxygen Delivery Room Air Method HEAD: Is atraumatic normocephalic. EYES: Pupils are equal round regular reactive light accommodation. Extraocular movements are normal. There is no conjunctival pallor. There is no scleral icterus. EARS: Tympanic membranes are intact. External auditory canals are clear. NOSE: There is no deviated nasal septum. There is no inflammation of the nasal mucous membrane. MOUTH: Mucous movements of the mouth are moist. Tongue is moist. There are no ulcers. There is no bleeding from the gums. THROAT: There is no redness of the oropharynx. There is no exudates. SKIN: There is no skin rashes or skin lesions there is no particular ecchymosis. NECK: There is no JVD elevation today. Carotids equal there is no bruits. There is no lymphadenopathy. There is no goiter. There is no accessory muscle respiration use. Trachea central. LUNGS: Clear to au scultation percussion without any rhonchi rales or wheezing. HEART: S1-S2 is heard. There is no S3 gallop. There is no S4 gallop. There is systolic murmur left sternal border and the apex there is no rub. ABDOMEN: Is obese. Nontender. There is no hepatospleno megaly. Bowel sounds are well heard. EXTREMITIES: Femorals are diminished. There is no femoral bruits. Leg pulses are diminished. There is a dressing in the left foot which is clean and dry. There is no pedal edema. There is no cyanosis or clubbing. COREMAKER BENCH: The patient is conscious awake alert oriented x3 with no focal deficits. PSYCHIATRIC: The patient judgment insight are intact his affect is normal. IMPRESSION/RECOMMENDATION: 1. Mild congestive heart failure: This is resolved. The patient is compensated from his cardia myopathy with no evidence of overt CHF. 2. Dilated cardiomyopathy with severely reduced LV ejection fraction. Note that the patient is allergic to ARB's. For some reason he is not on JER inhibitors. Will discuss and start the patient on JER inhibitor if no significant problems with it in the past. The patient has refused AICD placement in the past in [place]. Will discuss with his judge in [place], tomorrow. 3. Status post debridement of left diabetic foot ulcer. 4. Paroxysmal atrial fibrillation: We will recommend restarting the patient's Xarelto, and increasing Coreg to his prior dose. 5. 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 6. Hypertension: Well controlled. 7. Chronic kidney disease stage: Stage III. DISCUSSION: I spoke to Dr. Dora Centeno, the patient's judge in [place]. He states that the patient had severe coughing with lisinopril. He also had a severe allergic reaction with rash and angioedema with ARB. He thought that the patient was on hydralazine. But the patient states that he was placed on hydralazine at 100 mg p.o. every 8 hours and this dropped his blood pressure and hence it was discontinued. I told him that he needs to be on some afterload reducing agents for survival benefit. Hence the patient is agreed for me to start him on hydralazine 10 mg p.o. every 8 hours, and see the effect on his blood pressure. Medications reviewed. Medications added. Management plan and medical regimen discussed with the hospitalist attending physician Dr. Salcedo. Medical decision making is of high complexity.. Will follow.
[2019-07-06] MEDS: ZOLPIDEM TARTRATE 5 MG TABLET PO SCH (23:02)
[2019-07-06] MEDS: CARVEDILOL 12.5 MG TABLET PO SCH (23:03)
[2019-07-06] MEDS: INSULIN GLARGINE,HUM.REC.ANLOG 1,000 UNIT/10 ML VIAL SUBCUT SCH (23:05)
[2019-07-07] MEDS: PIPERACILLIN SODIUM/TAZOBACTAM 3.375 GM in NORMAL SALINE 100 ML IV SCH ×3 (03:48→14:25)
[2019-07-07] MEDS: HYDRALAZINE HCL 10 MG TABLET PO SCH ×3 (05:40→21:49)
--- NOTE | 2019-07-07 07:02 | PDOC PROGRESS REPORT ---
Subjective Progress Note for:: 07/07/19 Reason For Visit: DIABETIC FOOT ULCER 59-year-old white male now status post right diabetic foot debridement approximately 5 days ago. Patient with prolonged hospitalization due to medical and cardiac issues. Physical Exam Vital Signs: Temp Pulse Resp BP Pulse Ox 36.4 C 57 L 15 139/75 H 98 07/06/19 23:30 07/07/19 02:00 07/06/19 23:30 07/06/19 23:30 07/06/19 23:30 Intake & Output 07/06/19 07/07/19 07/08/19 06:59 06:59 06:59 Intake Total 1360 2600 Output Total 2250 2500 Balance -890 100 Weight 117.3 kg 115.8 kg Physical Exam: Middle-aged white male lying comfortably in bed. Patient is alert, oriented, and appropriate. General appearance: PRESENT: no acute distress Head exam: PRESENT: normocephalic Respiratory exam: PRESENT: unlabored Cardiovascular exam: PRESENT: RRR Vascular exam: PRESENT: normal capillary refill GI/Abdominal exam: PRESENT: soft Rectal exam: PRESENT: deferred Extremities exam: PRESENT: other - Right foot dressing intact. Great toe with brisk capillary refill. Neurological exam: PRESENT: alert, awake, oriented to person, oriented to place, oriented to time, oriented to situation, motor sensory deficit Psychiatric exam: PRESENT: appropriate affect, normal mood. ABSENT: homicidal ideation, suicidal ideation Skin exam: PRESENT: dry, intact, warm. ABSENT: cyanosis, rash Results Laboratory Results: 07/06/19 04:33 07/06/19 04:33 07/06/19 04:33 WBC 7.9 RBC 3.47 L Hgb 9.7 L Hct 28.9 L MCV 83 MCH 28.0 MCHC 33.7 RDW 16.3 H Plt Count 325 07/05/19 07/05/19 08:14 08:14 Creatine Kinase 64 CK-MB (CK-2) 0.89 Troponin I 0.016 Impressions: Foot X-Ray 06/30/19 12:24 IMPRESSION: 1. Soft tissue swelling and subcutaneous emphysema centered around the 1st and 2nd toes. There is no osseous erosion or widening of the 1st MTP joint space to suggest an acute osteomyelitis. If clinical concern persists correlation with MRI is recommended. 2. Nonspecific thickening of the Achilles tendon silhouette - correlate with clinical findings to exclude at tendinosis/tear, gouty infiltration, rheumatoid arthritis or retrocalcaneal bursitis. Lower Extremity MRI 07/01/19 00:00 IMPRESSION: 1. Cellulitis and evidence of superficial ulceration. No gross abscess. No evidence of osteomyelitis. Chest/Abdomen CTA 07/05/19 00:00 IMPRESSION: 1. NORMAL CTA OF THE CHEST. NO PULMONARY EMBOLI. 2. CARDIOMEGALY WITH PLEURAL EFFUSIONS. HAZY GROUND-GLASS OPACITIES PROBABLY DUE TO EARLY PULMONARY EDEMA. Status: Imported from PACS Assessment & Plan - Diagnosis (1) Diabetic foot infection Is this a current diagnosis for this admission?: Yes Plan: That is post debridement with postoperative cultures positive for Peptostreptococcus. Patient on IV antibiotic therapy. Patient anxious for discharge back to [place] and he has transition medical care available at home. - Time Time Spent with patient: 15-24 minutes Anticipated discharge: Home Within: Other
[2019-07-07] MEDS: INSULIN REG, HUMAN 100 UNIT/ML 3 ML VIAL (PYX) SUBCUT SCH ×4 (07:35→21:48)
[2019-07-07] MEDS: PANTOPRAZOLE SODIUM 40 MG TABLET.DR PO SCH (09:10)
[2019-07-07] MEDS: RIVAROXABAN 10 MG TABLET PO SCH (09:10)
[2019-07-07] MEDS: SODIUM HYPOCHLORITE 0.25% SOLN 473 ML BOTTLE TP SCH ×2 (09:11→18:03)
[2019-07-07] MEDS: CARVEDILOL 12.5 MG TABLET PO SCH ×2 (09:11→21:48)
[2019-07-07] MEDS: FUROSEMIDE 40 MG TABLET PO SCH ×2 (09:11→18:02)
[2019-07-07] MEDS: MAGNESIUM OXIDE 400 MG TABLET PO SCH ×2 (09:11→18:01)
[2019-07-07] MEDS: ISOSORBIDE MONONITRATE 30 MG TAB.ER.24H PO SCH (09:11)
[2019-07-07] MEDS: FENOFIBRATE NANOCRYSTALLIZED 145 MG TABLET PO SCH (09:12)
[2019-07-07] MEDS ORDERED: HYDRALAZINE HCL 10 MG TABLET PO ONE (10:15)
[2019-07-07 10:38] LABS: VANCOMYCIN,TROUGH 19.4 ug/mL (5.0-20.0)
[2019-07-07] MEDS: VANCOMYCIN HCL 1,000 MG in DEXTROSE 5%-WATER 250 ML IV SCH (10:48)
--- NOTE | 2019-07-07 16:49 | PDOC PROGRESS REPORT ---
Subjective Progress Note for:: 07/07/19 Subjective:: No acute event overnight. Denies chest pain. He says he feels like he is almost at his baseline. He requested if he can get a dose of IV Lasix today as he does report that he had gotten much relief from IV Lasix and in the past and the PO. Currently on vancomycin and Zosyn. DC vancomycin and will obtain further ID recommendations with antibiotics for the bacteremia to see if he needs to be discharged home to [place] with a PICC line. Reason For Visit: DIABETIC FOOT ULCER Physical Exam Vital Signs: Temp Pulse Resp BP Pulse Ox 97.7 F 54 L 16 127/66 H 95 07/07/19 11:34 07/07/19 14:00 07/07/19 11:34 07/07/19 11:34 07/07/19 11:34 Intake & Output 07/06/19 07/07/19 07/08/19 06:59 06:59 06:59 Intake Total 1360 2600 580 Output Total 2250 2500 800 Balance -890 100 -220 Weight 258 lb 9.636 oz 255 lb 4.725 oz General appearance: PRESENT: no acute distress, well-developed, well-nourished Head exam: PRESENT: atraumatic, normocephalic Eye exam: PRESENT: conjunctiva pink, EOMI, PERRLA. ABSENT: scleral icterus Ear exam: PRESENT: normal external ear exam Mouth exam: PRESENT: moist, tongue midline Neck exam: ABSENT: carotid bruit, JVD, lymphadenopathy, thyromegaly Respiratory exam: PRESENT: clear to auscultation chastity. ABSENT: rales, rhonchi, wheezes Cardiovascular exam: PRESENT: RRR. ABSENT: diastolic murmur, rubs, systolic murmur Pulses: PRESENT: normal dorsalis pedis pul GI/Abdominal exam: PRESENT: normal bowel sounds, soft. ABSENT: distended, guarding, mass, organolmegaly, rebound, tenderness Rectal exam: PRESENT: deferred Neurological exam: PRESENT: alert, awake, oriented to person, oriented to place, oriented to time, oriented to situation, CN II-XII grossly intact. ABSENT: motor sensory deficit Results Laboratory Results: 07/06/19 04:33 07/07/19 09:50 07/07/19 09:50 Creatinine 1.55 H Est GFR ( Amer) 56 L 07/05/19 07/05/19 08:14 08:14 Creatine Kinase 64 CK-MB (CK-2) 0.89 Troponin I 0.016 Impressions: Foot X-Ray 06/30/19 12:24 IMPRESSION: 1. Soft tissue swelling and subcutaneous emphysema centered around the 1st and 2nd toes. There is no osseous erosion or widening of the 1st MTP joint space to suggest an acute osteomyelitis. If clinical concern persists correlation with MRI is recommended. 2. Nonspecific thickening of the Achilles tendon silhouette - correlate with clinical findings to exclude at tendinosis/tear, gouty infiltration, rheumatoid arthritis or retrocalcaneal bursitis. Lower Extremity MRI 07/01/19 00:00 IMPRESSION: 1. Cellulitis and evidence of superficial ulceration. No gross abscess. No evidence of osteomyelitis. Chest/Abdomen CTA 07/05/19 00:00 IMPRESSION: 1. NORMAL CTA OF THE CHEST. NO PULMONARY EMBOLI. 2. CARDIOMEGALY WITH PLEURAL EFFUSIONS. HAZY GROUND-GLASS OPACITIES PROBABLY DUE TO EARLY PULMONARY EDEMA. Assessment and Plan - Diagnosis (1) Diabetic ulcer of left foot Qualifiers: Diabetic foot ulcer location: toe Diabetes mellitus type: type 2 Is this a current diagnosis for this admission?: Yes Plan: Wound culture grew Strep. Currently on Zosyn and vancomycin. DC vancomycin and will consult ID for further recommendations. (2) Streptococcal bacteremia Is this a current diagnosis for this admission?: Yes Plan: As per number 1. (3) Acute renal failure Is this a current diagnosis for this admission?: Yes Plan: Improved. Crea now appears to be stable and likely baseline.
[2019-07-07] MEDS ORDERED: FUROSEMIDE INJ/PF 40 MG/4 ML SDV IV ONE (18:00)
[2019-07-07] MEDS: PIPERACILLIN SODIUM/TAZOBACTAM 2.25 GM in NORMAL SALINE 50 ML IV SCH ×2 (21:43→23:38)
[2019-07-07] MEDS: INSULIN GLARGINE,HUM.REC.ANLOG 1,000 UNIT/10 ML VIAL SUBCUT SCH (21:43)
[2019-07-07] MEDS: ZOLPIDEM TARTRATE 5 MG TABLET PO SCH (21:49)
[2019-07-08] MEDS: PIPERACILLIN SODIUM/TAZOBACTAM 2.25 GM in NORMAL SALINE 50 ML IV SCH (06:09)
[2019-07-08] MEDS: HYDRALAZINE HCL 10 MG TABLET PO SCH (06:09)
--- NOTE | 2019-07-08 07:06 | PDOC PROGRESS REPORT ---
Subjective Progress Note for:: 07/08/19 Reason For Visit: DIABETIC FOOT ULCER 59-year-old white male status post irrigation debridement of diabetic foot ulcer, cultures have grown Peptostreptococcus, now on IV antibiotics. Awaiting plans for transfer back to [place] Physical Exam Vital Signs: Temp Pulse Resp BP Pulse Ox 36.8 C 62 15 131/79 H 97 07/07/19 23:48 07/08/19 02:00 07/07/19 23:48 07/07/19 23:48 07/07/19 23:48 Intake & Output 07/07/19 07/08/19 07/09/19 06:59 06:59 06:59 Intake Total 2600 1480 Output Total 2500 2100 Balance 100 -620 Weight 115.8 kg 116.2 kg Physical Exam: Overweight middle-aged white male lying comfortably in bed. Patient is alert, appropriate, and cooperative. Musculoskeletal exam: PRESENT: other - Dressings on the foot. Great toe is visible. Is viable with brisk capillary refill. Results Laboratory Results: 07/06/19 04:33 07/07/19 09:50 07/07/19 09:50 Creatinine 1.55 H Est GFR ( Amer) 56 L 06/30/19 13:09 Blood Blood Culture - Final Sphingomonas Species 07/05/19 07/05/19 08:14 08:14 Creatine Kinase 64 CK-MB (CK-2) 0.89 Troponin I 0.016 Impressions: Foot X-Ray 06/30/19 12:24 IMPRESSION: 1. Soft tissue swelling and subcutaneous emphysema centered around the 1st and 2nd toes. There is no osseous erosion or widening of the 1st MTP joint space to suggest an acute osteomyelitis. If clinical concern persists correlation with MRI is recommended. 2. Nonspecific thickening of the Achilles tendon silhouette - correlate with clinical findings to exclude at tendinosis/tear, gouty infiltration, rheumatoid arthritis or retrocalcaneal bursitis. Lower Extremity MRI 07/01/19 00:00 IMPRESSION: 1. Cellulitis and evidence of superficial ulceration. No gross abscess. No evidence of osteomyelitis. Chest/Abdomen CTA 07/05/19 00:00 IMPRESSION: 1. NORMAL CTA OF THE CHEST. NO PULMONARY EMBOLI. 2. CARDIOMEGALY WITH PLEURAL EFFUSIONS. HAZY GROUND-GLASS OPACITIES PROBABLY DUE TO EARLY PULMONARY EDEMA. Status: Imported from PACS Assessment & Plan - Diagnosis (1) Diabetic foot infection Is this a current diagnosis for this admission?: Yes Plan: Mobilized with physical therapy and limited weightbearing basis. Continue with antibiotic administration. Continue discharge planning to arrange for transition back to [place] - Time Time Spent with patient: 15-24 minutes Anticipated discharge: Home with Homehealth Within: Other
[2019-07-08] MEDS: INSULIN REG, HUMAN 100 UNIT/ML 3 ML VIAL (PYX) SUBCUT SCH ×2 (08:38→12:45)
[2019-07-08] MEDS ORDERED: CEFTRIAXONE 1 GM/D5W RTU 1 GM/50 ML RTUPB IV SCH (10:00)
[2019-07-08] MEDS: CARVEDILOL 12.5 MG TABLET PO SCH (10:27)
[2019-07-08] MEDS: FUROSEMIDE 40 MG TABLET PO SCH (10:28)
[2019-07-08] MEDS: PANTOPRAZOLE SODIUM 40 MG TABLET.DR PO SCH (10:28)
[2019-07-08] MEDS: ISOSORBIDE MONONITRATE 30 MG TAB.ER.24H PO SCH (10:28)
[2019-07-08] MEDS: MAGNESIUM OXIDE 400 MG TABLET PO SCH (10:28)
[2019-07-08] MEDS: FENOFIBRATE NANOCRYSTALLIZED 145 MG TABLET PO SCH (10:29)
[2019-07-08] MEDS: RIVAROXABAN 10 MG TABLET PO SCH (10:29)
--- NOTE | 2019-07-08 11:12 | Progress Note ---
Provider Note Provider Note: [facility] Consultation HPI: Chart reviewed. Patient admitted due to diabetic foot infection. Patient is from [place]. He developed an ulceration, redness and swelling of his 1st and 2nd toes. He was afebrile and HD stable on admission, but he did have leukocytosis. he had an X ray of his foot that was suggestive of cellulitis with soft tissue swelling and subcutaneous emphysema. No bone erosions to suggest osteomyelitis. He was started on vancomycin and pip/tazo. On 07/03 he was taken to the OR for debridement. The infection didn't go deep to the bone. His blood cultures came back positive for Sphingomonas and GBS. His tissue cult ures were positive for Prevotella, Streptococcus Groups B and F. He has been doing well since he had I&D. ID consulted for antibiotics recommendations and duration of therapy. Allergies olmesartan [From Benicar] Allergy (Verified 06/30/19 13:33) ondansetron [From Zofran] Allergy (Verified 06/30/19 13:33) spider venom Allergy (Verified 06/30/19 13:33) Medications: Current Medications Al Hydrox/Mg Hydrox/Simethicone (Maalox Plus Susp 30 Udcup) 30 ml PO Q6HP PRN Albuterol (Ventolin 0.042% Neb 1.25 Mg/3 Ml Ampul) 1.25 mg NEB RTQ6HP PRN Carvedilol (Coreg 12.5 Mg Tablet) 12.5 mg PO Q12 LARISA Dextrose (Dextrose Inj 50% Syringe (25 Gm/50 Ml)) 12.5 gm IV PRN PRN; Protocol Dextrose (Dextrose Inj 50% Syringe (25 Gm/50 Ml)) 25 gm IV PRN PRN; Protocol Fenofibrate (Tricor 145 Mg Tablet) 145 mg PO DAILY LARISA Furosemide (Lasix 40 Mg Tablet) 40 mg PO BID LARISA Glucagon (Glucagen Inj 1 Mg Vial) 1 mg IM PRN PRN; Protocol Glucose (Glutose 40% Gel 15 Gm Tube) 15 gm PO PRN PRN; Protocol Glucose (Glutose 40% Gel 15 Gm Tube) 30 gm PO PRN PRN; Protocol Hydralazine HCl (Apresoline 10 Mg Tablet) 10 mg PO Q8 LARISA Piperacillin Sod/Tazobactam (Sod 2.25 gm/ Sodium Chloride) 50 mls @ 100 mls/hr IV Q6 LARISA Insulin Glargine (Lantus Insulin 100 Unit/1 Ml 10 Ml) 20 unit SUBCUT QHS LARISA Insulin Human Regular (Humulin R (Pyxis) Insulin 100 Unit/Ml 3ml) 0 - 12 unit SUBCUT ACHS LARISA; Protocol Isosorbide Mononitrate (Imdur 30 Mg Tablet.Er) 30 mg PO DAILY LARISA Magnesium Oxide (Mag-Ox 400 Mg Tablet) 400 mg PO BID LARISA Pantoprazole Sodium (Protonix [address] Tablet) 40 mg PO DAILY LARISA Rivaroxaban (Xarelto 10 Mg Tablet) 20 mg PO DAILY LARISA Sodium Chloride (Saline Flush 2.5 Ml Monoject Prefil Syrin) 2.5 ml IV Q8 LARISA Sodium Hypochlorite (Dakin's 0.25% Soln 473 Ml) 1 applic TP BID LARISA Zolpidem Tartrate (Ambien 5 Mg Tablet) 10 mg PO QHS LARISA Vital Signs: Temp Pulse Resp BP Pulse Ox 97.9 F 50 L 16 137/71 H 97 07/08/19 08:00 07/08/19 08:00 07/08/19 08:00 07/08/19 08:00 07/08/19 08:00 Intake & Output 07/07/19 07/08/19 07/09/19 06:59 06:59 06:59 Intake Total 2600 1480 Output Total 2500 2100 Balance 100 -620 Weight 115.8 kg 116.2 kg Weight/Height Weight 116.2 kg Height 6 ft 2 in Laboratories: Labs- Last Values WBC 7.9 10^3/uL (4.0-10.5) 07/06/19 04:33 RBC 3.47 10^6/uL (4.35-5.55) L 07/06/19 04:33 Hgb 9.7 g/dL (13.5-17.0) L 07/06/19 04:33 Hct 28.9 % (37.9-51.0) L 07/06/19 04:33 MCV 83 fl (80-97) 07/06/19 04:33 MCH 28.0 pg (27.0-33.4) 07/06/19 04:33 MCHC 33.7 g/dL (32.0-36.0) 07/06/19 04:33 RDW 16.3 % (11.5-14.0) H 07/06/19 04:33 Plt Count 325 10^3/uL (150-450) 07/06/19 04:33 Lymph % (Auto) Not Reportable 07/06/19 04:33 [place] % (Auto) Not Reportable 07/06/19 04:33 Eos % (Auto) Not Reportable 07/06/19 04:33 Baso % (Auto) Not Reportable 07/06/19 04:33 Absolute Neuts (auto) Not Reportable 07/06/19 04:33 Absolute Lymphs (auto) Not Reportable 07/06/19 04:33 Absolute Monos (auto) Not Reportable 07/06/19 04:33 Absolute Eos (auto) Not Reportable 07/06/19 04:33 Absolute Basos (auto) Not Reportable 07/06/19 04:33 Total Counted 100 07/06/19 04:33 Seg Neutrophils % Not Reportable 07/06/19 04:33 Seg Neuts % (Manual) 73 % (42-78) 07/06/19 04:33 Band Neutrophils % 5 % (3-5) 07/06/19 04:33 Lymphocytes % (Manual) 11 % (13-45) L 07/06/19 04:33 Atypical Lymphs % 3 % (0) 07/04/19 05:45 Monocytes % (Manual) 4 % (3-13) 07/06/19 04:33 Eosinophils % (Manual) 6 % (0-6) 07/06/19 04:33 Basophils % (Manual) 1 % (0-2) 07/06/19 04:33 Metamyelocytes % 1 % (0) H 07/04/19 05:45 Abs Neuts (Manual) 6.2 10^3/uL (1.7-8.2) 07/06/19 04:33 Abs Lymphs (Manual) 0.9 10^3/uL (0.5-4.7) 07/06/19 04:33 Abs Monocytes (Manual) 0.3 10^3/uL (0.1-1.4) 07/06/19 04:33 Absolute Eos (Manual) 0.5 10^3/uL (0.0-0.6) 07/06/19 04:33 Abs Basophils (Manual) 0.1 10^3/uL (0.0-0.2) 07/06/19 04:33 Platelet Comment ADEQUATE 07/06/19 04:33 Polychromasia SLIGHT 06/30/19 13:09 Anisocytosis 1+ 07/06/19 04:33 Ovalocytes SLIGHT 06/30/19 13:09 VBG pH 7.39 (7.30-7.42) 06/30/19 12:52 VBG pCO2 45.3 mmHg (35-63) 06/30/19 12:52 VBG HCO3 26.8 mmol/L (20-32) 06/30/19 12:52 VBG Base Excess 1.7 mmol/L 06/30/19 12:52 Sodium 137.0 mmol/L (137-145) 07/06/19 04:33 Potassium 3.8 mmol/L (3.6-5.0) 07/06/19 04:33 Chloride 98 mmol/L (98-107) 07/06/19 04:33 Carbon Dioxide 29 mmol/L (22-30) 07/06/19 04:33 Anion Gap 10 (-19) 07/06/19 04:33 BUN 26 mg/dL (7-20) H 07/06/19 04:33 Creatinine 1.55 mg/dL (0.52-1.25) H 07/07/19 09:50 Est GFR ( Amer) 56 (>60) L 07/07/19 09:50 Est GFR (MDRD) Non-Af 46 (>60) L 07/07/19 09:50 Glucose 194 mg/dL (75-110) H 07/06/19 04:33 POC Glucose 200 mg/dL (70-110) H 07/08/19 06:25 Hemoglobin A1c % 10.0 % (4.7-6.0) H 07/02/19 04:33 Lactic Acid 1.8 mmol/L (0.7-2.1) 06/30/19 19:23 Calcium 8.6 mg/dL (8.4-10.2) 07/06/19 04:33 Phosphorus 2.5 mg/dL (2.5-4.5) 07/03/19 04:09 Magnesium 1.8 mg/dL (1.6-2.3) 07/06/19 04:33 Total Bilirubin 1.1 mg/dL (0.2-1.3) 07/06/19 04:33 Direct Bilirubin 0.6 mg/dL (0.0-0.4) H 07/06/19 04:33 Neonat Total Bilirubin Not Reportable 07/06/19 04:33 Neonat Direct Bilirubin Not Reportable 07/06/19 04:33 Neonat Indirect Bili Not Reportable 07/06/19 04:33 AST 68 U/L (17-59) H 07/06/19 04:33 ALT 87 U/L (<50) 07/06/19 04:33 Alkaline Phosphatase 47 U/L (38-126) 07/06/19 04:33 Creatine Kinase 64 U/L (55-170) 07/05/19 08:14 CK-MB (CK-2) 0.89 ng/mL (<4.55) 07/05/19 08:14 Troponin I 0.016 ng/mL 07/05/19 08:14 Total Protein 6.6 g/dL (6.3-8.2) 07/06/19 04:33 Albumin 3.2 g/dL (3.5-5.0) L 07/06/19 04:33 TSH 3.16 uIU/mL (0.47-4.68) 07/05/19 08:14 Free T4 2.44 ng/dL (0.78-2.19) H 07/05/19 08:14 Free T3 pg/mL 3.11 pg/mL (2.77-5.27) 07/05/19 08:14 Time Trough Drawn 0950 07/07/19 09:50 Vancomycin Trough 19.4 ug/mL (5.0-20.0) 07/07/19 09:50 Microbiology: Blood culture 06/30 Sphingomonas 1 set Group F Streptococcus 1 set Wound culture: Prevotella Group F Streptococcus GBS Radiology: Foot X-Ray 06/30/19 12:24 IMPRESSION: 1. Soft tissue swelling and subcutaneous emphysema centered around the 1st and 2nd toes. There is no osseous erosion or widening of the 1st MTP joint space to suggest an acute osteomyelitis. If clinical concern persists correlation with MRI is recommended. 2. Nonspecific thickening of the Achilles tendon silhouette - correlate with clinical findings to exclude at tendinosis/tear, gouty infiltration, rheumatoid arthritis or retrocalcaneal bursitis. Lower Extremity MRI 07/01/19 00:00 IMPRESSION: 1. Cellulitis and evidence of superficial ulceration. No gross abscess. No evidence of osteomyelitis. Chest/Abdomen CTA 07/05/19 00:00 IMPRESSION: 1. NORMAL CTA OF THE CHEST. NO PULMONARY EMBOLI. 2. CARDIOMEGALY WITH PLEURAL EFFUSIONS. HAZY GROUND-GLASS OPACITIES PROBABLY DUE TO EARLY PULMONARY EDEMA. Assessment and Recommendations: Patient presenting with diabetic foot infection with ulceration and subcutaneous emphysema due to presence of anaerobes, also bacteremia with Sphingomonas and Group F Streptococcus. He is s/p I&D on 07/03 with good source control. Repeat blood cultures are negative. The ideal course of treatment will be to continue pip/tazo, which covers all organisms, for a total of 14 days from the time of the surgery (9 more days). An alternative if patient needs to travel, would be levofloxacin 750 mg po daily + metronidazole 500 mg po bid x 9 more days. For Sphingomonas, Levaquin PRASHANTH 2 noted. As this was low grade bacteremia and source of infection has been removed, it is a reasonable option considering the circumstances. QTc should be monitored by his PCP in [place] at least once. If levaquin used, please avoid any cations as they may affect absorption of levaquin (Calcium, zinc, magnesium, etc). There is also risk of tendon rupture with fluoroquinolones, patient should be aware of that and be cautious with physical activity. Please call if questions. Annie Jones MD [facility] Infectious Disease [phone]
[2019-07-08 18:56] VITALS: BP 135/68
[2019-07-08] MEDS ORDERED: VANCOMYCIN HCL 1,000 MG in DEXTROSE 5%-WATER 250 ML IV SCH (22:00)
--- NOTE | 2019-07-09 17:14 | PDOC DISCHARGE SUMMARY ---
Impression - Admit/DC Date/PCP Admission Date/Primary Care Provider: 06/30/19 15:01 Discharge Date: 07/08/19 - Discharge Diagnosis (1) Diabetic ulcer of left foot Is this a current diagnosis for this admission?: Yes (2) Streptococcal bacteremia Is this a current diagnosis for this admission?: Yes (3) Acute renal failure Is this a current diagnosis for this admission?: Yes (4) Systolic heart failure Is this a current diagnosis for this admission?: Yes - Additional Information Resuscitation Status: Full Code Discharge Diet: Diabetic Discharge Activity: Balance Activity w/Rest Referrals: OUT OF,STATE PCP [Other] Prescriptions: Hydralazine HCl [Apresoline 10 mg Tablet] 10 mg PO Q8 #90 tablet Metronidazole [Flagyl 500 mg Tablet] 500 mg PO BID 9 Days #18 tablet Levofloxacin [Levaquin 500 mg Tablet] 500 mg PO DAILY #9 tablet Hydrocodone/Acetaminophen [[place] 5-325 mg Tablet] 1 tab PO Q6HP PRN #12 tablet PRN Reason: For Pain Home Medications: Fenofibrate Nanocrystallized [Tricor 145 mg Tablet] 145 mg PO DAILY 06/30/19 Furosemide [Lasix 40 mg Tablet] 40 mg PO DAILY 06/30/19 Glimepiride [Amaryl 4 mg Tablet] 4 mg PO BID 06/30/19 Insulin Glargine,Hum.rec.anlog [Basaglar Kwikpen U-100] 30 units SQ DAILY 06/30/19 Isosorbide Mononitrate [Imdur 30 mg Tablet.er] 30 mg PO DAILY 06/30/19 Pantoprazole Sodium [Protonix [address] Tablet] 40 mg PO DAILY 06/30/19 Rivaroxaban [Xarelto] 20 mg PO DAILY 06/30/19 Sitagliptin Phosphate [Januvia] 100 mg PO DAILY 06/30/19 Carvedilol [Coreg 12.5 mg Tablet] 12.5 mg PO Q12 07/05/19 Hydralazine HCl [Apresoline 10 mg Tablet] 10 mg PO Q8 #90 tablet 07/08/19 Hydrocodone/Acetaminophen [[place] 5-325 mg Tablet] 1 tab PO Q6HP PRN #12 tablet 07/08/19 Levofloxacin [Levaquin 500 mg Tablet] 500 mg PO DAILY #9 tablet 07/08/19 Metronidazole [Flagyl 500 mg Tablet] 500 mg PO BID 9 Days #18 tablet 07/08/19 History of Present Illiness History of Present Illness: Admitting hospitalist's H&P: SUSANA RUDOLPH is a 58 year old male who presents with left foot pain. Patient has known history diabetes and gets frequent ingrown toenails. Patient this was last he had an ingrown was removed and that is just diabetic foot ulcer popped up overnight. He denied any other symptoms but complains of pain that is mild to moderate in nature. He does have serosanguineous drainage from in between the great toe and second toe that is a foul smell. No other associated symptoms. No treatment prior to arrival all active is been aggravating factor. Hospital Course Hospital Course: Patient was admitted for left diabetic foot ulcer. He was started on IV antibiotics initially. Orthopedics was consulted. Patient underwent I&D of the left foot. Wound cultures grew group P Streptococcus and Peptostreptococcus. He also had streptococcal bacteremia initially. Repeat blood cultures showed clearance of bacteremia. ID was consulted. Patient is visiting from [place]. Discussed ID recommendations with patient and family about continued completing IV antibiotics with PICC line placement versus to oral agent antibiotic therapy. Patient and family are hesitant about associated risk of infection DVT with the PICC line and prefers to travel back to [place] without a PICC line. He will be discharged on Flagyl and levofloxacin. He already has appointment with his PCP he in [place]. Physical Exam Vital Signs: Temp Pulse Resp BP Pulse Ox 97.9 F 50 L 16 131/79 H 97 07/08/19 14:09 07/08/19 14:09 07/08/19 14:09 07/08/19 14:09 07/08/19 14:09 Intake & Output 07/08/19 07/09/19 07/10/19 06:59 06:59 06:59 Intake Total 1480 Output Total 2100 Balance -620 Weight 256 lb 2.834 oz 256 lb 2.834 oz General appearance: PRESENT: no acute distress, well-developed, well-nourished Head exam: PRESENT: atraumatic, normocephalic Eye exam: PRESENT: conjunctiva pink, EOMI, PERRLA. ABSENT: scleral icterus Ear exam: PRESENT: normal external ear exam Mouth exam: PRESENT: moist, tongue midline Neck exam: ABSENT: carotid bruit, JVD, lymphadenopathy, thyromegaly Respiratory exam: PRESENT: clear to auscultation chastity. ABSENT: rales, rhonchi, wheezes Cardiovascular exam: ABSENT: rubs, systolic murmur Pulses: PRESENT: normal dorsalis pedis pul GI/Abdominal exam: PRESENT: normal bowel sounds, soft. ABSENT: distended, guarding, mass, organolmegaly, rebound, tenderness Rectal exam: PRESENT: deferred Extremities exam: PRESENT: other - dressing over left foot Neurological exam: PRESENT: alert, awake, oriented to person, oriented to place, oriented to time, oriented to situation, CN II-XII grossly intact. ABSENT: motor sensory deficit Results Laboratory Results: WBC 7.9 10^3/uL (4.0-10.5) 07/06/19 04:33 RBC 3.47 10^6/uL (4.35-5.55) L 07/06/19 04:33 Hgb 9.7 g/dL (13.5-17.0) L 07/06/19 04:33 Hct 28.9 % (37.9-51.0) L 07/06/19 04:33 MCV 83 fl (80-97) 07/06/19 04:33 MCH 28.0 pg (27.0-33.4) 07/06/19 04:33 MCHC 33.7 g/dL (32.0-36.0) 07/06/19 04:33 RDW 16.3 % (11.5-14.0) H 07/06/19 04:33 Plt Count 325 10^3/uL (150-450) 07/06/19 04:33 Lymph % (Auto) Not Reportable 07/06/19 04:33 Spencer % (Auto) Not Reportable 07/06/19 04:33 Eos % (Auto) Not Reportable 07/06/19 04:33 Baso % (Auto) Not Reportable 07/06/19 04:33 Absolute Neuts (auto) Not Reportable 07/06/19 04:33 Absolute Lymphs (auto) Not Reportable 07/06/19 04:33 Absolute Monos (auto) Not Reportable 07/06/19 04:33 Absolute Eos (auto) Not Reportable 07/06/19 04:33 Absolute Basos (auto) Not Reportable 07/06/19 04:33 Total Counted 100 07/06/19 04:33 Seg Neutrophils % Not Reportable 07/06/19 04:33 Seg Neuts % (Manual) 73 % (42-78) 07/06/19 04:33 Band Neutrophils % 5 % (3-5) 07/06/19 04:33 Lymphocytes % (Manual) 11 % (13-45) L 07/06/19 04:33 Atypical Lymphs % 3 % (0) 07/04/19 05:45 Monocytes % (Manual) 4 % (3-13) 07/06/19 04:33 Eosinophils % (Manual) 6 % (0-6) 07/06/19 04:33 Basophils % (Manual) 1 % (0-2) 07/06/19 04:33 Metamyelocytes % 1 % (0) H 07/04/19 05:45 Abs Neuts (Manual) 6.2 10^3/uL (1.7-8.2) 07/06/19 04:33 Abs Lymphs (Manual) 0.9 10^3/uL (0.5-4.7) 07/06/19 04:33 Abs Monocytes (Manual) 0.3 10^3/uL (0.1-1.4) 07/06/19 04:33 Absolute Eos (Manual) 0.5 10^3/uL (0.0-0.6) 07/06/19 04:33 Abs Basophils (Manual) 0.1 10^3/uL (0.0-0.2) 07/06/19 04:33 Platelet Comment ADEQUATE 07/06/19 04:33 Polychromasia SLIGHT 06/30/19 13:09 Anisocytosis 1+ 07/06/19 04:33 Ovalocytes SLIGHT 06/30/19 13:09 VBG pH 7.39 (7.30-7.42) 06/30/19 12:52 VBG pCO2 45.3 mmHg (35-63) 06/30/19 12:52 VBG HCO3 26.8 mmol/L (20-32) 06/30/19 12:52 VBG Base Excess 1.7 mmol/L 06/30/19 12:52 Sodium 137.0 mmol/L (137-145) 07/06/19 04:33 Potassium 3.8 mmol/L (3.6-5.0) 07/06/19 04:33 Chloride 98 mmol/L (98-107) 07/06/19 04:33 Carbon Dioxide 29 mmol/L (22-30) 07/06/19 04:33 Anion Gap 10 (5-19) 07/06/19 04:33 BUN 26 mg/dL (7-20) H 07/06/19 04:33 Creatinine 1.55 mg/dL (0.52-1.25) H 07/07/19 09:50 Est GFR ( Amer) 56 (>60) L 07/07/19 09:50 Est GFR (MDRD) Non-Af 46 (>60) L 07/07/19 09:50 Glucose 194 mg/dL (75-110) H 07/06/19 04:33 POC Glucose 344 mg/dL (70-110) H 07/08/19 10:56 Hemoglobin A1c % 10.0 % (4.7-6.0) H 07/02/19 04:33 Lactic Acid 1.8 mmol/L (0.7-2.1) 06/30/19 19:23 Calcium 8.6 mg/dL (8.4-10.2) 07/06/19 04:33 Phosphorus 2.5 mg/dL (2.5-4.5) 07/03/19 04:09 Magnesium 1.8 mg/dL (1.6-2.3) 07/06/19 04:33 Total Bilirubin 1.1 mg/dL (0.2-1.3) 07/06/19 04:33 Direct Bilirubin 0.6 mg/dL (0.0-0.4) H 07/06/19 04:33 Neonat Total Bilirubin Not Reportable 07/06/19 04:33 Neonat Direct Bilirubin Not Reportable 07/06/19 04:33 Neonat Indirect Bili Not Reportable 07/06/19 04:33 AST 68 U/L (17-59) H 07/06/19 04:33 ALT 87 U/L (<50) 07/06/19 04:33 Alkaline Phosphatase 47 U/L (38-126) 07/06/19 04:33 Creatine Kinase 64 U/L (55-170) 07/05/19 08:14 CK-MB (CK-2) 0.89 ng/mL (<4.55) 07/05/19 08:14 Troponin I 0.016 ng/mL 07/05/19 08:14 Total Protein 6.6 g/dL (6.3-8.2) 07/06/19 04:33 Albumin 3.2 g/dL (3.5-5.0) L 07/06/19 04:33 TSH 3.16 uIU/mL (0.47-4.68) 07/05/19 08:14 Free T4 2.44 ng/dL (0.78-2.19) H 07/05/19 08:14 Free T3 pg/mL 3.11 pg/mL (2.77-5.27) 07/05/19 08:14 Time Trough Drawn 0950 07/07/19 09:50 Vancomycin Trough 19.4 ug/mL (5.0-20.0) 07/07/19 09:50 07/05/19 08:14 CK-MB (CK-2) 0.89 Troponin I 0.016 Impressions: Foot X-Ray 06/30/19 12:24 IMPRESSION: 1. Soft tissue swelling and subcutaneous emphysema centered around the 1st and 2nd toes. There is no osseous erosion or widening of the 1st MTP joint space to suggest an acute osteomyelitis. If clinical concern persists correlation with MRI is recommended. 2. Nonspecific thickening of the Achilles tendon silhouette - correlate with clinical findings to exclude at tendinosis/tear, gouty infiltration, rheumatoid arthritis or retrocalcaneal bursitis. Lower Extremity MRI 07/01/19 00:00 IMPRESSION: 1. Cellulitis and evidence of superficial ulceration. No gross abscess. No evidence of osteomyelitis. Chest/Abdomen CTA 07/05/19 00:00 IMPRESSION: 1. NORMAL CTA OF THE CHEST. NO PULMONARY EMBOLI. 2. CARDIOMEGALY WITH PLEURAL EFFUSIONS. HAZY GROUND-GLASS OPACITIES PROBABLY DUE TO EARLY PULMONARY EDEMA. Stroke Is this a Stroke Patient?: No Acute Heart Failure - Is this a Heart Failure Patient?: Yes Documentation of LVEF assessment?: Yes LVEF < 40%?: No- if no continue to question #3 a) Discharged on ACEI?: No, document contraindications - angioedema b) Discharges on ARB?: No-document contraindications - angioedema Reason(s) not discharged on ARNI: Other - angioedema d) Discharged on evidence-based Beta can(carvedilol, sustained release metoprolol succinate, or bisoprolol)?: Yes e) For LVEF <35%, discharged on Aldosterone antagonist?: N/A (LVEF > or = 35%) 3. Anticoagulant therapy for permanect/persistent/paraoxysmal Afib or Aflutter: N/A
== END 2019-07-08 16:30 | disposition home or self-care (01) | DRG 623 ==
LOC: ER 12:05 → EH 15:01 → 4S 17:24 → 4N 07-04 19:05
PROVIDERS: ADMIT Hospitalist; ATTEND Hospitalist
PROC: 0JBR0ZZ Excision of Left Foot Subcutaneous Tissue and Fascia, Open Approach (ICD-10-PCS; principal; 2019-07-02 07:30)
DX: E11.621 Type 2 diabetes mellitus with foot ulcer (principal); E87.2 Acidosis; L03.116 Cellulitis of left lower limb; I50.22 Chronic systolic (congestive) heart failure; I42.9 Cardiomyopathy, unspecified; E87.1 Hypo-osmolality and hyponatremia; N17.9 Acute kidney failure, unspecified; L97.521 Non-pressure chronic ulcer of other part of left foot limited to breakdown of skin; I48.0 Paroxysmal atrial fibrillation; N18.3 Chronic kidney disease, stage 3 (moderate); E11.22 Type 2 diabetes mellitus with diabetic chronic kidney disease; L97.523 Non-pressure chronic ulcer of other part of left foot with necrosis of muscle; E11.65 Type 2 diabetes mellitus with hyperglycemia; K21.9 Gastro-esophageal reflux disease without esophagitis; B95.1 Streptococcus, group B, as the cause of diseases classified elsewhere; B95.4 Other streptococcus as the cause of diseases classified elsewhere; E66.9 Obesity, unspecified; Z68.32 Body mass index [BMI] 32.0-32.9, adult; Z79.01 Long term (current) use of anticoagulants; Z79.4 Long term (current) use of insulin; Z90.49 Acquired absence of other specified parts of digestive tract; Z79.899 Other long term (current) drug therapy; Z88.8 Allergy status to other drugs, medicaments and biological substances
CPT/HCPCS: 01470; 36415; 71275; 80048; 80053; 80202; 82550; 82553; 82565; 82803; 82962; 83036; 83605; 83735; 84100; 84439; 84443; 84481; 84484; 85025; 87040; 87070; 87075; 87077; 87186; 87205; 93005; 93010; 94640; 96365; 96367; 99291; J0692; J1170; J1815; J1940; J2250; J2270; J2543; J2704; J3010; J3370; J3490; J7030; J7050; J7060